=== PATIENT | female | born 1955 | race Caucasian/White ===

== ENCOUNTER 2020-04-27 23:03 | Inpatient (IN) | payer MEDICAID, MEDICARE, OTHER ==
[~2020-04-27] VITALS: Ht 162.6 cm; Wt 78.0 kg
[~2020-04-27 23:03] MED LIST: BENA5TAB5 PO; GLIP10TA11 PO; INSU100V7 SQ; METF-440 PO
--- NOTE | 2020-04-27 23:19 | NUR ---
Note michaelshun in EDM - 04/27/20 at 2321 by JARAD PT BIBPA FOR MEDICAL CLREANCE AND PSYCH EVAL . PT WAS AGITATED AND HAD BEEN REFUSIMG AT THE FACILITY PER REPORT. PT AAOX4, VSS, RESPIRATIONS EVEN AND UNLABORED ON RA W/ NAD NOTED. PT CONNECTED TO THE MONITOR AND POX
--- NOTE | 2020-04-27 23:21 | NUR ---
PT BIBPA FOR MEDICAL CLREANCE AND PSYCH EVAL . PT WAS AGITATED AND HAD BEEN REFUSING AT THE FACILITY PER REPORT. PT AAOX3, VSS, RESPIRATIONS EVEN AND UNLABORED ON RA W/ NAD NOTED. PT CONNECTED TO THE MONITOR AND POX
--- NOTE | 2020-04-27 23:27 | NUR ---
ECONOMIC HISTORY TEACHER AT BEDSIDE FOR BLOOD DRAW
[2020-04-27 23:41] LABS: BASOPHILS % (AUTO) 0.7 % (0.0-2.0); EOSINOPHILS % (AUTO) 2.8 % (0.0-6.0); HEMATOCRIT 38 % (33-45); HEMOGLOBIN 12.7 g/dL (11.5-14.8); LYMPHOCYTES # (AUTO) 2.7 /CMM (0.8-4.8); LYMPHOCYTES % (AUTO) 36.7 % (20.0-44.0); MEAN CORPUSCULAR HGB CONC 34 g/dl (31.0-36.0); MEAN CORPUSCULAR VOLUME 86 fL (82-100); MONOCYTES # (AUTO) 0.5 /CMM (0.1-1.30); MONOCYTES % (AUTO) 7.2 % (2.0-12.0); NEUTROPHILS # (AUTO) 3.8 /CMM (1.8-8.9); NEUTROPHILS % (AUTO) 52.6 % (43.0-81.0); PLATELET COUNT (AUTO) 325 /CMM (150-450); RED BLOOD CELL COUNT(AUTO) 4.38 MIL/uL (4.0-5.2); WHITE BLOOD COUNT (AUTO) 7.2 K/uL (4.3-11.0)
--- NOTE | 2020-04-28 00:10 | NUR ---
PT AGITATED AT BEDSIDE. REDIRECTED TO ROOM.
[2020-04-28] MEDS ORDERED: LORAZEPAM INJ 2 MG/ML VIAL ONE ×2 (00:14→01:52)
--- NOTE | 2020-04-28 00:17 | NUR ---
Hayley oconnell in [facility] - 04/28/20 at 0046 by JARAD MAHESHID SWAB SENT TO LAB
[2020-04-28] MEDS ORDERED: LORAZEPAM INJ 2 MG/ML VIAL IM ONE ×2 (00:30→02:00)
[2020-04-28 00:38] LABS: ACETAMINOPHEN 0 ug/ml (10-30); ALANINE AMINOTRANSFERASE 21 U/L (12-78); ALBUMIN 3.5 g/dL (3.4-5.0); ALCOHOL, BLOOD < 3 mg/dL (0-0); ALKALINE PHOSPHATASE 143 U/L (46-116); ASPARTATE AMINOTRANSFERASE 14 U/L (15-37); BILIRUBIN,DIRECT 0.1 mg/dL (0.0-0.2); BILIRUBIN,TOTAL 0.2 mg/dL (0.2-1.0); CALCIUM, SERUM 9.6 mg/dL (8.5-10.1); CARBON DIOXIDE 26 mmol/L (21-32); CHLORIDE 102 mmol/L (98-107); CREATININE 0.9 mg/dL (0.6-1.3); GLUCOSE 214 mg/dL (74-106); POTASSIUM 3.8 mmol/L (3.5-5.1); SALICYLATE 0.9 mg/dL (2.8-20.0); SODIUM SERUM 137 mmol/L (136-145); TOTAL PROTEIN, SERUM 7.2 g/dL (6.4-8.2); UREA NITROGEN, BLOOD 20 mg/dL (7-18)
--- NOTE | 2020-04-28 00:55 | NUR ---
CORONAVIRUS SWAB SAMPLE COLLECTED AND SENT WITH [facility].
[2020-04-28 01:03] LABS: BILIRUBIN,URINE Negative (NEGATIVE); BLOOD, URINE Negative Ery/uL (NEGATIVE); COLOR,URINE Yellow (YELLOW); KETONES,URINE Negative (NEGATIVE); LEUKOCYTE ESTERASE ,URINE Small (NEGATIVE); NITRITE, URINE Negative (NEGATIVE); PH,URINE 5.5 (5.0-8.0); PROTEIN,URINE Negative (NEGATIVE); UGLUCOSE Negative (NEGATIVE); UROBILINOGEN,URINE 0.2 EU/dL (0.2)
[2020-04-28 01:04] LABS: APPEARANCE,URINE HAZY (CLEAR)
--- NOTE | 2020-04-28 01:38 | NUR ---
ART, ROTARY DRILL OPERATOR EN ROUTE TO HOSPITAL FOR EVALUATION
[2020-04-28 01:54] LABS: RBC,URINE 0-2 /HPF (0-2)
[2020-04-28 01:55] LABS: BACTERIA,URINE Many /HPF (None Seen); SQUAMOUS EPITHELIAL CELL,UR Few /HPF (None Seen)
--- NOTE | 2020-04-28 01:58 | NUR ---
PT WANDERING. NEEDS TO BE CONSTANTLY REDIRECTED.
--- NOTE | 2020-04-28 02:20 | NUR ---
ART, PROVIDER RELATIONS REPRESENTATIVE AT BEDSIDE FOR EVALUATION
[2020-04-28] MEDS ORDERED: METF-442 PO (02:36)
[2020-04-28] MEDS ORDERED: RISP2TAB5 PO (02:36)
[2020-04-28] MEDS ORDERED: ASCO500W7 PO (02:36)
[2020-04-28] MEDS ORDERED: ZINC1CAP2 PO (02:36)
--- NOTE | 2020-04-28 03:26 | NUR ---
REPORT GIVEN TO LORAINE MCCRACKEN FOR AARON
--- NOTE | 2020-04-28 03:55 | NUR ---
PT TRANSFERRED TO ROOM IN STABLE CONDITION
[2020-04-28] MEDS ORDERED: BLOOD SUGAR DIAGNOSTIC 1 EACH STRIP IN ONE (04:00)
[2020-04-28] MEDS ORDERED: MAGNESIUM HYDROXIDE 30 ML UDC PO PRN (04:00)
--- NOTE | 2020-04-28 04:00 | NUR ---
GPS RN NOTES: ADMISSION ADMITTED 64 Y/O FEMALE. PT ADMITTED FROM [facility] ER TO [facility] GPS ON A 5150. PER HOLD, PT WAS BROUGHT IN FROM [facility] DUE TO AGGRESSIVE BEHAVIOR, SCREAMING, KICKING STAFF AND NON COMPLAINT WITH MEDICATIONS. PT TRIED TO ELOPE FROM ED TWO TIMES AND HAD TO BE GIVEN ATIVAN 2MG TWO TIMES. UPON FACE TO FACE ASSESSMENT, PT IS A/O X2, EASILY AGITATED, CONFUSED, DISORGANIZED, FORGETFUL, ANGRY, UNCOOPERATIVE, RESERVED, GUARDED, RESTLESS, AND FLAT AFFECT. PT MARCIAL SI AND HI AT THIS TIME. PER PT DOES NOT KNOW WHY SHE IS HERE. PT REFUSED TO SIGN CONSENT PAPERS DUE TO "NOT IN THE MOOD." PT REFUSED TO ANSWER QUESTIONS AND IS VAGUE WITH HER ANSWERS. ENVIRONMENTAL SAFETY CHECK DONE Q15MIN. ENCOURAGE PT TO VERBALIZE THOUGHTS AND FEELINGS TO STAFF. ORIENTED PT TO THE UNIT. BELONGING AND CONTRABAND CHECKED AND DONE. NURSING ASSESSMENT DONE. PT REFUSED SKIN ASSESSMENT AND PICTURES. EXPLAIN RISKS AND BENEFITS. PT STILL REFUSED X3. PT AGREED TO TAKE PICTURE OF HER FACE FOR IDENTIFICATION. PICTURE PUT IN CHART. INITIAL BLOOD SUGAR CHECK DONE. PTS RIGHTS DISCUSSED BY MARKETING ANALYTICS ANALYST,. PROVIDED THE PT W/ HANDBOOK AND MED GUIDE. VITALS TAKEN WNL. NO S/S OF RESP DISTRESS. BREATHING EVEN AND UNLABORED. CONTINUE TO MONITOR.
[2020-04-28 04:07] VITALS: BP 128/59
[2020-04-28] MEDS ORDERED: INSU100V3 IJ (04:23)
[2020-04-28] MEDS ORDERED: HUM100IN SQ (04:23)
[2020-04-28] MEDS ORDERED: BLOO-1672 MC (04:25)
[2020-04-28] MEDS ORDERED: INSULIN REGULAR, HUMAN 100 UNIT/ML 3 ML VIAL SQ PRN (06:30)
[2020-04-28] MEDS ORDERED: DEXTROSE 50%-WATER 50 ML DISP.SYRIN IV PRN (06:30)
[2020-04-28] MEDS: INSULIN LISPRO/ASPART 100 UNIT/ML CARTRIDGE SQ SCH ×3 (07:30→17:14)
[2020-04-28 08:00] VITALS: BP 106/63
[2020-04-28] MEDS: BLOOD SUGAR DIAGNOSTIC 1 EACH STRIP IN SCH ×4 (08:45→21:44)
[2020-04-28] MEDS: METFORMIN 500 MG TABLET PO SCH ×2 (08:48→16:29)
[2020-04-28] MEDS: NICOTINE PATCH (14MG) 14 MG PATCH.TD24 TD SCH (08:48)
--- NOTE | 2020-04-28 09:06 | NUR ---
PATIENT IS SLEEPING IN BED, WOKE UP AROUND 0830. BLOOD SUGAR THIS AM IS 193--INSULIN GIVEN PER PROTOCOL AND METFORMIN ORDERED. NEW ORDER FOR INSULIN LISPRO NOT FOUND IN CASSETTE, THEREFORE NON-ADMIN AT THIS TIME. WILL F/U WITH PHARMACY. PATIENT IS NOW SLEEPING IN BED, SAFETY PRECAUTIONS IN PLACE.
--- NOTE | 2020-04-28 14:23 | NUR ---
RN-CO: Notified Dr Silva to do his dictation/consultation within 24 hours.
--- NOTE | 2020-04-28 15:11 | NUR ---
RN-CO: Patient was seen by Dr Rodolfo Silva.
[2020-04-28] MEDS: risperiDONE 1 MG TABLET PO SCH ×2 (15:21→21:00)
--- NOTE | 2020-04-28 15:30 | NUR ---
SKIN ASSESSMENT DONE, SKIN REMAINS INTACT. OLD MOSQUITO BITES FOUND ON BLE AND OLD SURGICAL INCISION ON MEDIAL ABDOMEN.
[2020-04-28 16:00] VITALS: BP 145/80
[2020-04-28 17:39] LABS: CREATININE 0.8 mg/dL (0.6-1.3)
[2020-04-28] MEDS: BENZTROPINE MESYLATE (1 MG) 1 MG TABLET PO SCH (17:50)
[2020-04-28 19:59] VITALS: BP 114/57
[2020-04-28] MEDS: INSULIN REGULAR, HUMAN 100 UNIT/ML 3 ML VIAL SQ PRN (21:46)
--- NOTE | 2020-04-28 21:46 | NUR ---
GPS/BARREL TESTER AND DRAINER NOTES: PT. REFUSED HS RISPERIDONE 2MG PO ORDERED. OFFERED 3X. EXPLAINED RISK AND BENEFITS. PT. STILL REFUSED. WILL CONTINUE TO MONITOR.
[2020-04-28] MEDS: ACETAMINOPHEN 325 MG TABLET PO PRN (22:01)
--- NOTE | 2020-04-29 07:00 | NUR ---
GPS RN OPENING NOTES PT RESTING IN BED AT THIS TIME. NO S/S OF ANY ACUTE DISTRESS OR AGITATION NOTED. CALM AND COOPERATIVE. NO C/O PAIN OR DISCOMFORT. SAFETY PRECAUTIONS IN PLACE AND OBSERVED AT ALL TIMES. BED IN LOWEST LOCKED POSITION, SIDE RAILS UP,HOB ELEVATED TO SEMI FOWLERS POSITION, CALL LIGHT WITHIN REACH. PT IS CALM, DIRECTED BEHAVIOR APPROPRIATE DENIES SI HI AH VH. WILL CONTINUE TO MONITOR Q 15 MIN FOR SAFETY AND BEHAVIOR.
[2020-04-29 08:00] VITALS: BP 134/81
[2020-04-29] MEDS: BLOOD SUGAR DIAGNOSTIC 1 EACH STRIP IN SCH ×4 (08:42→21:03)
--- NOTE | 2020-04-29 08:50 | NUR ---
GPS RN NOTES PATIENT REFUSED NICODERM 14MG PATCH TP DAILY AT THIS TIME. WILL CONTINUE TO MONITOR
[2020-04-29] MEDS: INSULIN LISPRO/ASPART 100 UNIT/ML CARTRIDGE SQ SCH ×3 (08:52→17:05)
[2020-04-29] MEDS: INSULIN REGULAR, HUMAN 100 UNIT/ML 3 ML VIAL SQ PRN ×3 (08:53→21:07)
[2020-04-29] MEDS: NICOTINE PATCH (14MG) 14 MG PATCH.TD24 TD SCH (09:00)
[2020-04-29] MEDS: CEPHALEXIN MONOHYDRATE 500 MG CAPSULE PO SCH ×2 (09:22→21:02)
[2020-04-29] MEDS: METFORMIN 500 MG TABLET PO SCH ×2 (09:23→17:11)
[2020-04-29] MEDS: BENZTROPINE MESYLATE (1 MG) 1 MG TABLET PO SCH ×2 (09:23→17:11)
[2020-04-29] MEDS: risperiDONE 1 MG TABLET PO SCH ×2 (09:24→17:11)
[2020-04-29] MEDS: ACETAMINOPHEN 325 MG TABLET PO PRN ×2 (13:33→23:00)
--- NOTE | 2020-04-29 13:36 | NUR ---
PATIENT C/O OF BILATERAL LOWER LEG THROBBING PAIN OF 3/10. PATIENT REQUESTED FOR ACETAMINOPHEN. ACETAMINOPHEN 650MG PO Q6HRS PRN WAS ADMINISTERED AT THIS TIME. WILL CONTINUE TO MONITOR
[2020-04-29 16:00] VITALS: BP 114/70
--- NOTE | 2020-04-29 16:00 | NUR ---
DR PORTER HAD TELEMEDICINE/HEALTH ASSESSMENT AND CONSULT WITH PATIENT. NO NEW ORDERS. WILL CONTINUE TO MONITOR
--- NOTE | 2020-04-29 16:14 | NUR ---
INDIVIDUAL INTERVENTION: SW attempted to encourage pt to attend group therapy on this day, but pt refused. Pt was pacing the hallway and did not engage in conversation with SW and walked away.
--- NOTE | 2020-04-29 18:00 | NUR ---
PT REFUSED LAB DRAWN FOR LIPID PANEL. PT EDUCATED ON BENEFITS AND RISKS. PT VERBALIZED UNDERSTANDING. WILL CONTINUE TO MONITOR
--- NOTE | 2020-04-29 18:49 | NUR ---
GPS RN CLOSING NOTES PT SITTING IN HALLWAY AT THIS TIME. PT REMAINED STABLE THROUGHOUT SHIFT. ALL CARE, NEEDS, TREATMENT AND MEDICATIONS ADMINISTERED ANTICIPATED PER ORDER. FALL AND SAFETY PRECAUTIONS IN PLACE AND OBSERVED AT ALL TIMES. WILL ENDORSE TO ORACLE CONSULTANT NURSE FOR AARON. Addendum: 04/29/20 at 1859 by EDWIN PETERS RN GPS RN CLOSING NOTES PT RESTING IN BED AT THIS TIME. PT REMAINED STABLE THROUGHOUT SHIFT. ALL CARE, NEEDS, TREATMENT AND MEDICATIONS ADMINISTERED ANTICIPATED PER ORDER. FALL AND SAFETY PRECAUTIONS IN PLACE AND OBSERVED AT ALL TIMES. BED IN LOWEST LOCKED POSITION, SIDE RAILS UP,HOB ELEVATED TO SEMI FOWLERS POSITION, CALL LIGHT WITHIN REACH. WILL ENDORSE TO ORACLE CONSULTANT NURSE FOR AARON.
--- NOTE | 2020-04-29 18:58 | NUR ---
GPS RN CLOSING NOTES PT RESTING IN BED AT THIS TIME. PT REMAINED STABLE THROUGHOUT SHIFT. ALL CARE, NEEDS, TREATMENT AND MEDICATIONS ADMINISTERED ANTICIPATED PER ORDER. FALL AND SAFETY PRECAUTIONS IN PLACE AND OBSERVED AT ALL TIMES. BED IN LOWEST LOCKED POSITION, SIDE RAILS UP,HOB ELEVATED TO SEMI FOWLERS POSITION, CALL LIGHT WITHIN REACH. WILL ENDORSE TO STAVE LOG CUT OFF SAW OPERATOR NURSE FOR AARON.
[2020-04-29 20:04] VITALS: BP 99/55
[2020-04-29 20:14] VITALS: BP 99/55
[2020-04-29 20:50] VITALS: BP 105/61
--- NOTE | 2020-04-29 21:08 | NUR ---
GPS RN NOTE: Patient wanted to get all her medicines & insulin coverage at this time, so she can sleep well. patient had snack already & in stable condition.
--- NOTE | 2020-04-29 23:05 | NUR ---
PRN TYLENOL GIVEN PATIENT VERBALIZED LEFT KNEE & LEFT FOOT PAIN & ASKED TO GET PAIN MEDICINE, PRN TYLENOL 650 MG PO GIVEN. WILL CONTINUE TO MONITOR FOR ANY CHANGES.
--- NOTE | 2020-04-30 02:33 | NUR ---
GPS RN NOTE PATIENT IS SLEEPING INTERMITTENTLY, WHEN ASKED IF PATIENT NEEDS SLEEPING MEDICINE, PATIENT REFUSE & STATED," I SLEEP DURING DAY TIME & THAT'S MY ROUTINE." ENCOURAGED PATIENT TO SLEEP AT NIGHT & PARTICIPATE IN ACTIVITIES IN DAY TIME BUT PATIENT DID NOT AGREE TO THE PLAN & WANTED TO STICK TO HER ROUTINE. SNACK & FLUIDS OFFERED & TOLERATED WELL. WILL CONTINUE TO MONITOR FOR ANY CHANGES.
[2020-04-30] MEDS: BLOOD SUGAR DIAGNOSTIC 1 EACH STRIP IN SCH ×4 (07:56→21:51)
[2020-04-30] MEDS: INSULIN LISPRO/ASPART 100 UNIT/ML CARTRIDGE SQ SCH ×3 (07:59→18:16)
[2020-04-30 08:00] VITALS: BP 147/64
[2020-04-30] MEDS: INSULIN REGULAR, HUMAN 100 UNIT/ML 3 ML VIAL SQ PRN ×3 (08:01→18:17)
[2020-04-30] MEDS: NICOTINE PATCH (14MG) 14 MG PATCH.TD24 TD SCH (08:07)
[2020-04-30] MEDS: CEPHALEXIN MONOHYDRATE 500 MG CAPSULE PO SCH ×2 (08:07→21:23)
[2020-04-30] MEDS: BENZTROPINE MESYLATE (1 MG) 1 MG TABLET PO SCH ×2 (08:07→17:34)
[2020-04-30] MEDS: METFORMIN 500 MG TABLET PO SCH ×2 (08:07→17:34)
[2020-04-30] MEDS: risperiDONE 1 MG TABLET PO SCH ×2 (08:07→17:34)
--- NOTE | 2020-04-30 11:21 | NUR ---
Social Work Initial Discharge Plan: Patient currently resides at [address], [address] ([phone]). Per patient's daughter Maggie ([phone]) would want patient back upon discharge. This freelance writer spoke with admin Maggie ([phone]) who stated that patient is welcomed back upon discharge. community health worker will work with the pt and the MD regarding appropriate discharge planning. community health worker will form a safe and proper discharge.
--- NOTE | 2020-04-30 11:31 | NUR ---
Social Work Family Contact: insulation worker furnace installer spoke with patient's daughter Maggie ([phone]) who claims is the patient's conservator. Upon review of the conservatorship paperwork it was determined that conservatorship is not valid and daughter does not hold conservatorship for the patient. Per Maggie, she stated that she would want patient back to [facility] upon discharge. This caption writer gathered collateral from patient's daughter Maggie ([phone]).
[2020-04-30 16:00] VITALS: BP 114/62
[2020-04-30 20:03] VITALS: BP 144/73
[2020-04-30 20:10] VITALS: BP 144/73
--- NOTE | 2020-04-30 21:52 | NUR ---
GPS RN NOTE PATIENT'S BS IS 124 MG/DL, INSULIN COVERAGE NOT NEEDED AT THIS TIME. PATIENT HAD SNACK & TOLERATED WELL.
[2020-05-01 08:00] VITALS: BP 140/83
[2020-05-01] MEDS: BLOOD SUGAR DIAGNOSTIC 1 EACH STRIP IN SCH ×4 (08:13→21:41)
[2020-05-01] MEDS: INSULIN LISPRO/ASPART 100 UNIT/ML CARTRIDGE SQ SCH ×3 (08:14→17:49)
[2020-05-01] MEDS: INSULIN REGULAR, HUMAN 100 UNIT/ML 3 ML VIAL SQ PRN ×2 (08:17→17:51)
[2020-05-01] MEDS: METFORMIN 500 MG TABLET PO SCH ×2 (08:31→17:46)
[2020-05-01] MEDS: BENZTROPINE MESYLATE (1 MG) 1 MG TABLET PO SCH ×2 (08:31→17:46)
[2020-05-01] MEDS: CEPHALEXIN MONOHYDRATE 500 MG CAPSULE PO SCH ×2 (08:31→21:41)
[2020-05-01] MEDS: risperiDONE 1 MG TABLET PO SCH ×2 (08:31→17:46)
[2020-05-01] MEDS: NICOTINE PATCH (14MG) 14 MG PATCH.TD24 TD SCH (08:32)
[2020-05-01 16:00] VITALS: BP 108/72
[2020-05-02] MEDS: ACETAMINOPHEN 325 MG TABLET PO PRN (00:08)
--- NOTE | 2020-05-02 00:08 | NUR ---
GPS RN NOTE: PAIN PT. C/O OF 06/24 FOOT PAIN. ADMINISTERED TYLENOL 650 MG PO PRN ORDERED. WILL CONTINUE TO MONITOR FOR SAFETY AND BEHAVIOR
[2020-05-02 05:42] VITALS: BP 140/95
[2020-05-02] MEDS: BLOOD SUGAR DIAGNOSTIC 1 EACH STRIP IN SCH ×4 (07:29→21:22)
[2020-05-02] MEDS: INSULIN LISPRO/ASPART 100 UNIT/ML CARTRIDGE SQ SCH ×3 (07:30→17:30)
[2020-05-02 08:00] VITALS: BP 101/56
[2020-05-02] MEDS: CEPHALEXIN MONOHYDRATE 500 MG CAPSULE PO SCH ×2 (08:35→21:22)
[2020-05-02] MEDS: risperiDONE 1 MG TABLET PO SCH ×2 (08:35→17:19)
[2020-05-02] MEDS: NICOTINE PATCH (14MG) 14 MG PATCH.TD24 TD SCH (08:35)
[2020-05-02] MEDS: METFORMIN 500 MG TABLET PO SCH ×2 (08:35→17:19)
[2020-05-02] MEDS: BENZTROPINE MESYLATE (1 MG) 1 MG TABLET PO SCH ×2 (08:35→17:19)
--- NOTE | 2020-05-02 09:00 | NUR ---
RN NOTE- WITHDRAWN IN ROOM ISOLATIVE STATING THAT "I HAVE GANGREEN IN MY FOOT. I CAN FEEL IT. I NEED SOMETHING FOR MY GANGRENE' INSPECTION REVEALS NORMAL FOOT. NO EDAMA NO INFECTION NOTED. ALERT ORIENTED TO PERSON PLACE MED COMPLIANT PO INTAKE GOOD DENIES ALL
[2020-05-02 16:00] VITALS: BP 112/70
[2020-05-02] MEDS: INSULIN REGULAR, HUMAN 100 UNIT/ML 3 ML VIAL SQ PRN (17:22)
[2020-05-02 20:14] VITALS: BP 98/56
[2020-05-02 20:18] VITALS: BP 98/56
[2020-05-03] MEDS: BLOOD SUGAR DIAGNOSTIC 1 EACH STRIP IN SCH ×4 (07:21→20:54)
[2020-05-03] MEDS: INSULIN LISPRO/ASPART 100 UNIT/ML CARTRIDGE SQ SCH ×3 (07:31→17:07)
[2020-05-03] MEDS: INSULIN REGULAR, HUMAN 100 UNIT/ML 3 ML VIAL SQ PRN ×4 (07:33→21:26)
[2020-05-03 08:00] VITALS: BP 114/67
[2020-05-03] MEDS: risperiDONE 1 MG TABLET PO SCH ×2 (08:05→17:10)
[2020-05-03] MEDS: NICOTINE PATCH (14MG) 14 MG PATCH.TD24 TD SCH (08:06)
[2020-05-03] MEDS: BENZTROPINE MESYLATE (1 MG) 1 MG TABLET PO SCH ×2 (08:06→17:09)
[2020-05-03] MEDS: METFORMIN 500 MG TABLET PO SCH ×2 (08:06→17:09)
[2020-05-03] MEDS: CEPHALEXIN MONOHYDRATE 500 MG CAPSULE PO SCH ×2 (08:06→20:49)
--- NOTE | 2020-05-03 15:01 | NUR ---
INDIVIDUAL INTERVENTION: SW attempted to meet with pt to discuss his discharge plan. Pt was asleep and not easily aroused by verbal cues.
[2020-05-03 19:58] VITALS: BP 121/93
[2020-05-03 20:00] VITALS: BP 121/93
--- NOTE | 2020-05-03 20:55 | NUR ---
ACCU CHECK DONE EARLIER THAN SCHEDULED TIME: PATIENT REQUESTED HER BLOOD SUGAR TO BE CHECKED RIGHT NOW INSTEAD OF 2200. SHE WANTS TO HAVE SNACK & GO TO SLEEP & DOES NOT WANT TO BE BOTHERED ONCE ASLEEP.
--- NOTE | 2020-05-04 02:00 | NUR ---
REFUSED ATIVAN PATIENT NOTED TO BE PACING IN & OUT OF HER ROOM, RESTLESS, ATIVAN OFFERED X 3 BUT PATIENT KEEPS REFUSING & STATED," I AM OK, NOT ANXIOUS, IF I TAKE ATIVAN, I WILL BE KNOCKED OUT UNTIL 12 NOON, I WANT TO WALK TO EXERCISE FOR MY LEGS, I AM OK." PT. KEPT REFUSING ATIVAN SO FAR. WILL TRY AGAIN IF NEEDED.
--- NOTE | 2020-05-04 02:06 | NUR ---
GPS RN NOTE PATIENT REQUESTED TO GET MILK, INFORMED THE PATIENT THAT IT SHOWS ON HER RECORDS THAT SHE IS ALLERGIC TO MILK BUT PATIENT DENIED & STATED," I HAVE HAD MILK ALL MY LIFE, I AM NOT ALLERGIC TO MILK." ASKED THE PATIENT IF SHE EXPERIENCED ANY SIDE EFFECTS OR CHANGES AFTER DRINKING MILK IN THE PAST, PATIENT DENIED THAT WELL & INSISTED TO GET MILK, CHARGE NURSE MADE AWARE & MILK GIVEN TO THE PATIENT. WILL MONITOR CLOSELY & WILL UPDATE ALLERGIES IF PT. DOES NOT EXPERIENCE ANY SYMPTOMS.
--- NOTE | 2020-05-04 02:24 | NUR ---
GPS RN NOTE PATIENT IS LAYING IN BED AT THIS TIME, INTERMITTENTLY SLEEPING.
--- NOTE | 2020-05-04 04:30 | NUR ---
GPS RN NOTE PATIENT IS SLEEPING COMFORTABLY.
--- NOTE | 2020-05-04 04:49 | NUR ---
GPS RN NOTE PATIENT DID NOT SHOW ANY SYMPTOMS AFTER DRINKING MILK & SHE SAID SHE IS NOT ALLERGIC TO MILK AT ALL. ALLERGIES UPDATED TO NKA.
--- NOTE | 2020-05-04 06:39 | NUR ---
GPS RN NOTE PATIENT WANTS TO SEE THE BARIATRIC NURSE TODAY 05/04/20. ENTERED ON THE REPORT & WILL ENDORSE TO AM RN TO FOLLOW UP WITH THE BARIATRIC NURSE.
[2020-05-04] MEDS: BLOOD SUGAR DIAGNOSTIC 1 EACH STRIP IN SCH ×4 (07:27→21:11)
[2020-05-04] MEDS: INSULIN REGULAR, HUMAN 100 UNIT/ML 3 ML VIAL SQ PRN ×4 (07:37→21:11)
[2020-05-04] MEDS: INSULIN LISPRO/ASPART 100 UNIT/ML CARTRIDGE SQ SCH ×3 (07:40→16:52)
[2020-05-04 08:00] VITALS: BP 103/59
[2020-05-04] MEDS: METFORMIN 500 MG TABLET PO SCH ×2 (08:20→16:47)
[2020-05-04] MEDS: risperiDONE 1 MG TABLET PO SCH ×2 (08:20→16:47)
[2020-05-04] MEDS: BENZTROPINE MESYLATE (1 MG) 1 MG TABLET PO SCH ×2 (08:20→16:47)
[2020-05-04] MEDS: NICOTINE PATCH (14MG) 14 MG PATCH.TD24 TD SCH (08:21)
[2020-05-04] MEDS: CEPHALEXIN MONOHYDRATE 500 MG CAPSULE PO SCH ×2 (08:24→21:04)
--- NOTE | 2020-05-04 14:34 | NUR ---
Social Work Individual Therapy: drywall metal stud worker met with patient to provide brief counseling. Pt appeared to be tangential and hyperverbal. This handbook writer attempted to discuss patient's discharge plan. Patient appeared to be paranoid and delusion she stated that she has her own condo and that "people are going to pay for her and that the economy has been suffering". Pt stated that she has been eating "canned food and that she has been poisoned multiple times". This handbook writer actively listened to patient.
[2020-05-04 16:00] VITALS: BP 151/74
[2020-05-04 20:13] VITALS: BP 126/64
[2020-05-05] MEDS: ACETAMINOPHEN 325 MG TABLET PO PRN
[2020-05-05] MEDS: MAG HYDROX/AL HYDROX/SIMETH 30 ML UDC PO PRN ×2 (00:03→04:53)
--- NOTE | 2020-05-05 00:10 | NUR ---
GPS RN NOTE: PAIN & INDIGESTION PT WAS COMPLAINING OF SHOULDER PAIN AND INDIGESTION AND REQUESTED TYLENOL AND SOMETHING FOR INDIGESTION. ADMINISTERED TYLENOL 650MG PRN @0000 & MAALOX SUSP. UDC 30ML @0003. WILL CONTINUE TO MONITOR Q15 MIN FOR SAFETY AND BEHAVIOR.
[2020-05-05] MEDS: BLOOD SUGAR DIAGNOSTIC 1 EACH STRIP IN SCH ×4 (07:37→21:32)
[2020-05-05 08:00] VITALS: BP 112/68
[2020-05-05] MEDS: CEPHALEXIN MONOHYDRATE 500 MG CAPSULE PO SCH ×2 (08:17→21:31)
[2020-05-05] MEDS: BENZTROPINE MESYLATE (1 MG) 1 MG TABLET PO SCH ×2 (08:17→16:33)
[2020-05-05] MEDS: METFORMIN 500 MG TABLET PO SCH ×2 (08:17→16:33)
[2020-05-05] MEDS: INSULIN LISPRO/ASPART 100 UNIT/ML CARTRIDGE SQ SCH ×3 (08:20→17:29)
[2020-05-05] MEDS: INSULIN REGULAR, HUMAN 100 UNIT/ML 3 ML VIAL SQ PRN ×3 (08:21→21:42)
[2020-05-05] MEDS: risperiDONE 1 MG TABLET PO SCH (08:27)
[2020-05-05] MEDS: NICOTINE PATCH (14MG) 14 MG PATCH.TD24 TD SCH (08:27)
--- NOTE | 2020-05-05 11:08 | NUR ---
Social Work Family Contact: feeder worker power unit operator spoke with patient's daughter Maggie ([phone]) and discussed patient's status. Per daughter Maggie, she is agreeable with pt being discharged to [facility] upon discharge.
[2020-05-05] MEDS: OLANZAPINE 5 MG TABLET PO SCH ×2 (12:30→17:00)
--- NOTE | 2020-05-05 14:13 | NUR ---
GROUP NOTE: Pt was asleep and not easily aroused by verbal cues.
[2020-05-05 16:00] VITALS: BP 143/88
[2020-05-05 20:09] VITALS: BP 117/59
[2020-05-06] MEDS: BLOOD SUGAR DIAGNOSTIC 1 EACH STRIP IN SCH ×4 (07:45→21:21)
[2020-05-06] MEDS: INSULIN LISPRO/ASPART 100 UNIT/ML CARTRIDGE SQ SCH ×3 (07:47→16:55)
[2020-05-06 08:00] VITALS: BP 149/79
[2020-05-06] MEDS: NICOTINE PATCH (14MG) 14 MG PATCH.TD24 TD SCH ×2 (08:30→08:40)
[2020-05-06] MEDS: OLANZAPINE 5 MG TABLET PO SCH ×2 (08:31→08:40)
[2020-05-06] MEDS: BENZTROPINE MESYLATE (1 MG) 1 MG TABLET PO SCH ×2 (08:31→16:38)
[2020-05-06] MEDS: METFORMIN 500 MG TABLET PO SCH ×2 (08:31→16:38)
--- NOTE | 2020-05-06 08:41 | NUR ---
RN NOTES PATIENT CHANGES HER MIND AND REFUSED OLANZAPINE AND NICOTINE PATCH, PER PATIENT "I DON'T NEED IT".WASTED OLANZAPINE PER PROTOCOL. WILL CONTINUE TO MONITOR.
--- NOTE | 2020-05-06 14:16 | NUR ---
GROUP NOTE: Group Topic was on how to manage stress. Patient was able to engage in group. However, patient was off topic and was delusional. She continuously stated that she wrote the "laws" and that it is on the website of "[employer]". Patient was re-directed to the topic and she was able to state that when she is stressed she "prays". Patient was able to engage with peers.
[2020-05-06 16:00] VITALS: BP 145/68
[2020-05-06] MEDS: risperiDONE 1 MG TABLET PO SCH ×2 (16:39→16:43)
--- NOTE | 2020-05-06 16:43 | NUR ---
RN NOTES PATIENT REFUSED RISPERDAL, EXPLAINED THE RISKS AND BENEFITS FOR 3X BUT STILL REFUSED. WILL CONTINUE TO MONITOR.
[2020-05-06 20:52] VITALS: BP 138/77
[2020-05-06] MEDS: INSULIN REGULAR, HUMAN 100 UNIT/ML 3 ML VIAL SQ PRN (21:50)
[2020-05-06] MEDS: ACETAMINOPHEN 325 MG TABLET PO PRN (21:51)
--- NOTE | 2020-05-06 21:51 | NUR ---
GPS-RN NOTE: UPPER BACK PAIN PATIENT C/O UPPER BACK PAIN AND REQUESTING FOR TYLENOL. ADMINISTERED ACETAMINOPHEN 650MG PO ORDERED. WILL CONTINUE TO MONITOR.
[2020-05-06] MEDS: LORAZEPAM 0.5 MG TABLET PO PRN (22:19)
--- NOTE | 2020-05-06 22:19 | NUR ---
GPS-RN NOTE: ANXIETY PATIENT C/O FEELING ANXIOUS. ADMINISTERED ATIVAN 0.5MG PO ORDERED. WILL CONTINUE TO MONITOR FOR SAFETY AND BEHAVIOR.
[2020-05-07] MEDS: BLOOD SUGAR DIAGNOSTIC 1 EACH STRIP IN SCH ×4 (07:21→21:06)
[2020-05-07] MEDS: INSULIN LISPRO/ASPART 100 UNIT/ML CARTRIDGE SQ SCH ×3 (07:26→16:55)
[2020-05-07] MEDS: INSULIN REGULAR, HUMAN 100 UNIT/ML 3 ML VIAL SQ PRN ×3 (07:26→21:07)
[2020-05-07 08:00] VITALS: BP 152/73
[2020-05-07] MEDS: BENZTROPINE MESYLATE (1 MG) 1 MG TABLET PO SCH ×2 (08:24→17:00)
[2020-05-07] MEDS: METFORMIN 500 MG TABLET PO SCH ×2 (08:24→17:00)
[2020-05-07] MEDS: NICOTINE PATCH (14MG) 14 MG PATCH.TD24 TD SCH (08:24)
[2020-05-07] MEDS: risperiDONE 1 MG TABLET PO SCH ×2 (08:24→17:00)
[2020-05-07] MEDS: HALOPERIDOL 5 MG TABLET PO SCH ×2 (10:00→17:00)
--- NOTE | 2020-05-07 10:37 | NUR ---
GPS RN NOTE: PATIENT IN BED, AWAKE, NO COMPLAINS OF PAIN OR DISCOMFORT TIME PATIENT APPEARS UNKEMPT, REFUSED TO SHOWER DISORGANIZED,DENIES AUDITORY OR VISUAL HALLUCINATIONS.PT REFUSED ALL AM MEDICATIONS SITTING " IM NOT GOING TO TAKE MEDICATIONS MY BODY HAVE TOO MUCH MEDICATIONS"DR PORTER AWARE.SAFETY AND FALL PRECAUTIONS OBSERVED. BED ALARM ON. Q15 MIN CHECKS CONTINUED. WILL CONTINUE TO MONITOR PATIENT FOR MOOD SAFETY AND BEHAVIOR.
--- NOTE | 2020-05-07 15:25 | NUR ---
GROUP NOTE: sort line worker invited pt to participate in group. Pt refused to join and stated that she is not feeling good and wants to sleep.
[2020-05-07 16:00] VITALS: BP 118/67
[2020-05-07 19:55] VITALS: BP 107/73
[2020-05-07 20:00] VITALS: BP 107/73
[2020-05-08] MEDS: ACETAMINOPHEN 325 MG TABLET PO PRN (00:10)
[2020-05-08] MEDS: INSULIN REGULAR, HUMAN 100 UNIT/ML 3 ML VIAL SQ PRN ×3 (07:57→17:00)
[2020-05-08 08:00] VITALS: BP 163/84
[2020-05-08] MEDS: BLOOD SUGAR DIAGNOSTIC 1 EACH STRIP IN SCH ×4 (08:00→21:29)
[2020-05-08] MEDS: INSULIN LISPRO/ASPART 100 UNIT/ML CARTRIDGE SQ SCH ×3 (08:03→16:59)
[2020-05-08] MEDS: METFORMIN 500 MG TABLET PO SCH ×2 (08:35→16:04)
[2020-05-08] MEDS: NICOTINE PATCH (14MG) 14 MG PATCH.TD24 TD SCH (08:37)
[2020-05-08] MEDS: risperiDONE 1 MG TABLET PO SCH ×2 (08:37→16:06)
[2020-05-08] MEDS: HALOPERIDOL 5 MG TABLET PO SCH ×2 (08:37→16:06)
[2020-05-08] MEDS: BENZTROPINE MESYLATE (1 MG) 1 MG TABLET PO SCH ×2 (09:00→16:06)
[2020-05-08 10:11] VITALS: BP 133/81
[2020-05-08 16:00] VITALS: BP 137/75
[2020-05-08 20:00] VITALS: BP 127/73
[2020-05-08 20:27] VITALS: BP 127/73
--- NOTE | 2020-05-09 05:24 | NUR ---
GPS RN NOTE PATIENT REFUSED AM LABS DESPITE OF EXPLANATIONS.
[2020-05-09] MEDS: BLOOD SUGAR DIAGNOSTIC 1 EACH STRIP IN SCH ×4 (07:44→22:01)
[2020-05-09] MEDS: INSULIN LISPRO/ASPART 100 UNIT/ML CARTRIDGE SQ SCH ×3 (07:49→17:30)
[2020-05-09 08:00] VITALS: BP 132/66
[2020-05-09] MEDS: BENZTROPINE MESYLATE (1 MG) 1 MG TABLET PO SCH ×2 (08:50→17:00)
[2020-05-09] MEDS: METFORMIN 500 MG TABLET PO SCH ×2 (08:50→17:00)
[2020-05-09] MEDS: NICOTINE PATCH (14MG) 14 MG PATCH.TD24 TD SCH (08:51)
[2020-05-09] MEDS: HALOPERIDOL 5 MG TABLET PO SCH ×2 (08:51→17:00)
[2020-05-09] MEDS: risperiDONE 1 MG TABLET PO SCH ×2 (08:51→17:00)
--- NOTE | 2020-05-09 08:51 | NUR ---
RN NOTES PATIENT IN THE BED A/O X3, WITH DISORGANIZED THOUGHTS, REFUSED SCHEDULED MEDICATION, V/S TAKEN WNL. PATIENT CALM, REFUSED LABS, BS-167 MG/DL COVERAGE GIVEN.
[2020-05-09 16:00] VITALS: BP 124/73
[2020-05-09] MEDS: INSULIN REGULAR, HUMAN 100 UNIT/ML 3 ML VIAL SQ PRN ×2 (17:35→21:41)
[2020-05-09 20:00] VITALS: BP 111/64
[2020-05-09 20:10] VITALS: BP 99/56
[2020-05-10] MEDS: INSULIN LISPRO/ASPART 100 UNIT/ML CARTRIDGE SQ SCH ×4 (07:30→16:52)
[2020-05-10] MEDS: BLOOD SUGAR DIAGNOSTIC 1 EACH STRIP IN SCH ×4 (07:45→21:28)
[2020-05-10] MEDS: INSULIN REGULAR, HUMAN 100 UNIT/ML 3 ML VIAL SQ PRN ×4 (07:48→21:29)
[2020-05-10 08:00] VITALS: BP 158/78
[2020-05-10] MEDS: BENZTROPINE MESYLATE (1 MG) 1 MG TABLET PO SCH ×2 (08:44→17:00)
[2020-05-10] MEDS: risperiDONE 1 MG TABLET PO SCH ×2 (08:44→17:00)
[2020-05-10] MEDS: HALOPERIDOL 5 MG TABLET PO SCH ×2 (08:44→17:00)
[2020-05-10] MEDS: METFORMIN 500 MG TABLET PO SCH ×2 (08:44→17:09)
[2020-05-10] MEDS: NICOTINE PATCH (14MG) 14 MG PATCH.TD24 TD SCH (08:45)
--- NOTE | 2020-05-10 08:45 | NUR ---
RN NOTE: MEDICATION REFUSAL PT REFUSED ALL AM MEDICATIONS. EDUCATED PT RE IMPORTANCE OF MEDICATION COMPLIANCE. PT CONT TO REFUSE X 3. REISE HEARING IS SCHEDULED
[2020-05-10 16:00] VITALS: BP 149/78
--- NOTE | 2020-05-10 17:11 | NUR ---
RN NOTE: MEDICATION REFUSAL PT REFUSED ALL 1700 MEDICATIONS EXCEPT METFORMIN. EDU PT ON IMPORTANCE OF MEDICATION COMPLIANCE. PT CONT TO REFUSE X3/
[2020-05-10 20:15] VITALS: BP 114/50
[2020-05-11] MEDS: BLOOD SUGAR DIAGNOSTIC 1 EACH STRIP IN SCH ×4 (07:33→21:17)
[2020-05-11] MEDS: INSULIN REGULAR, HUMAN 100 UNIT/ML 3 ML VIAL SQ PRN ×4 (07:38→21:18)
[2020-05-11] MEDS: INSULIN LISPRO/ASPART 100 UNIT/ML CARTRIDGE SQ SCH ×3 (07:39→16:48)
[2020-05-11 08:00] VITALS: BP 151/86
[2020-05-11] MEDS: risperiDONE 1 MG TABLET PO SCH (09:00)
[2020-05-11] MEDS: BENZTROPINE MESYLATE (1 MG) 1 MG TABLET PO SCH ×2 (09:00→17:00)
[2020-05-11] MEDS: HALOPERIDOL 5 MG TABLET PO SCH ×2 (09:00→17:11)
[2020-05-11] MEDS: NICOTINE PATCH (14MG) 14 MG PATCH.TD24 TD SCH (09:00)
[2020-05-11] MEDS: METFORMIN 500 MG TABLET PO SCH ×2 (09:09→17:12)
--- NOTE | 2020-05-11 09:12 | NUR ---
RN NOTE: MEDICATION REFUSAL PT REFUSED ALL AM PO MEDICATIONS EXCEPT METFORMIN. EDUCATED PT ON IMPORTANCE OF MEDICATION COMPLIANCE. PT CONT TO REFUSE X 3. RIESE HEARING FILED
[2020-05-11] MEDS ORDERED: HALOPERIDOL LACTATE INJ 5 MG/ML VIAL IM PRN (11:30)
--- NOTE | 2020-05-11 15:18 | NUR ---
GROUP NOTE: Group Topic: Depression SW provided active listening, supportive counseling, and explored alternate coping skills. Patient shared about not experiencing depression because she grew up in a big family and felt secure and stable. Patient shared about moments of feeling stress and sadness over losing people she loves.
[2020-05-11 16:00] VITALS: BP 122/62
--- NOTE | 2020-05-11 17:12 | NUR ---
RN NOTE: PT C/O PHUONG. TOOK HALDOL AND GLUCOPHAGE PO
[2020-05-11 19:57] VITALS: BP 104/58
[2020-05-11 20:24] VITALS: BP 135/81
[2020-05-12] MEDS: BLOOD SUGAR DIAGNOSTIC 1 EACH STRIP IN SCH ×4 (07:54→21:07)
[2020-05-12] MEDS: INSULIN LISPRO/ASPART 100 UNIT/ML CARTRIDGE SQ SCH ×3 (07:54→16:40)
[2020-05-12] MEDS: INSULIN REGULAR, HUMAN 100 UNIT/ML 3 ML VIAL SQ PRN ×4 (07:56→21:07)
[2020-05-12 08:00] VITALS: BP 152/82
[2020-05-12] MEDS: HALOPERIDOL 5 MG TABLET PO SCH ×3 (08:32→16:55)
[2020-05-12] MEDS: BENZTROPINE MESYLATE (1 MG) 1 MG TABLET PO SCH ×2 (08:32→16:38)
[2020-05-12] MEDS: METFORMIN 500 MG TABLET PO SCH ×2 (08:32→16:37)
[2020-05-12] MEDS: NICOTINE PATCH (14MG) 14 MG PATCH.TD24 TD SCH (08:34)
--- NOTE | 2020-05-12 11:24 | NUR ---
ELIZABETH Coordination of Care: Spoke with patient's daughter, Maggie Barragan ([phone]) regarding patient's discharge planning. Maggie wnatded this manual writer to look into alternate placement for the patient at [address] [address] ([phone]). ELIZABETH spoke with Adriel crystal machining coordinator at the facility and faxed him the patient's referral packet for review fax# ([phone]).
--- NOTE | 2020-05-12 15:00 | NUR ---
ELIZABETH Family Contact: ELIZABETH spoke with Maggie Barragan ([phone]) patient's daughter who stated that she is the patient's LPS conservator however Maggie had not provided any documents regarding this. This play writer requested the conservatorship documentation, Maggie stated that she is unable to get them due to her produce shipper's office being closed and she is trying to renew the conservatorship. Maggie stated that her conservatorship one year ago, and she filed for a renewal which has been delayed due to COVID-19 Pandemic and the courts being closed. Maggie provided the hospital with a copy of a document stating that her conservatorship, although already, has been extended until May 24, 2020 and she provided this document upon patients admissions to in [facility] Department on 04/27/20. This play writer discussed with Maggie that the patient had a Riese Hearing and 14 Day Hold Hearing yesterday as the patient had been refusing all her medications. Maggie understood this process.
--- NOTE | 2020-05-12 15:15 | NUR ---
LPS Conservatorship Note Prior to and upon admission, Maggie, patient's mother ) produced LPS conservatorship with no signature from her on conservatorship. It appears she later faxed a minute order in which it is noted that conservatorship over person only was extended until May 24, 2020. This was not received on GPS unit. Conservatorship anderson have not yet been produced by patient's mother so our hospital cannot honor this conservatorship until there is documented evidence of her anderson over this patient. Rachelle, mónica conventions reservationist agreed to request anderson from patient's mother. Upon review of and receipt of these anderson, this situation will once again be reviewed.
--- NOTE | 2020-05-12 15:45 | NUR ---
Group Note: SW encouraged the pt to attend group therapy on 05/12/20 on the topic of discharge planning. Pt refused and stated that she wanted to remain in her room because she wanted to be asleep due to her foot pain. Pt stated that she wants to go to her home and that she has a sick son at home. Pt stated that she wanted the SW to work on her discharge as soon as possible.
[2020-05-12 16:00] VITALS: BP 151/74
--- NOTE | 2020-05-12 16:22 | NUR ---
LPS Conservatorship Note Correction Patient's conservator is her daughter, Maggie ([phone]) and not her mother as previously stated by this fiction and nonfiction prose writer in earlier note today. Still awaiting documentation outlining anderson in order to honor conservatorship.
--- NOTE | 2020-05-12 17:04 | NUR ---
GPS RN NOTE: PATIENT REFUSED 1700 HALDOL 5 MG BID PO,PT RIESED. PER MD EVERY REFUSAL OF HALDOL PO GIVE HALDOL 5 MG IM. EXPLAIN RISK AND BENEFITS X3 PT CONTINUE REFUSING. MEDICATION EXPLAIN GIVEN PER ORDER, WILL CONTINUE MONITORING FOR SAFETY AND BEHAVIOR Q 15 MIN.
[2020-05-12 19:38] VITALS: BP 127/70
[2020-05-12] MEDS ORDERED: HALOPERIDOL DECANOATE IM 100 MG/ML AMPUL IM ONE (21:00)
[2020-05-13] MEDS: BLOOD SUGAR DIAGNOSTIC 1 EACH STRIP IN SCH ×4 (07:30→21:15)
[2020-05-13 08:24] VITALS: BP 148/71
[2020-05-13] MEDS: BENZTROPINE MESYLATE (1 MG) 1 MG TABLET PO SCH ×2 (08:40→17:18)
[2020-05-13] MEDS: HALOPERIDOL 5 MG TABLET PO SCH ×2 (08:40→17:18)
[2020-05-13] MEDS: METFORMIN 500 MG TABLET PO SCH ×2 (08:40→17:18)
[2020-05-13] MEDS: INSULIN LISPRO/ASPART 100 UNIT/ML CARTRIDGE SQ SCH ×3 (08:41→18:14)
[2020-05-13] MEDS: NICOTINE PATCH (14MG) 14 MG PATCH.TD24 TD SCH (08:45)
[2020-05-13] MEDS: INSULIN REGULAR, HUMAN 100 UNIT/ML 3 ML VIAL SQ PRN ×3 (08:47→18:14)
--- NOTE | 2020-05-13 14:19 | NUR ---
GROUP NOTE: Topic: Adapting to our environment. turn down worker encouraged patient to participate in group therapy. Patient was resting at this time and did not want to be present.
[2020-05-13 16:00] VITALS: BP 126/80
[2020-05-13 20:16] VITALS: BP 96/54
[2020-05-14] MEDS: LORAZEPAM 0.5 MG TABLET PO PRN (00:41)
--- NOTE | 2020-05-14 00:43 | NUR ---
RN NOTES : ANXIETY PT. C/O FEELING ANXIOUS , RESTLESS, ATIVAN 0.5 MG PO PRN GIVEN PER PT. REQUEST , WILL CONTINUE TO MONITOR.
--- NOTE | 2020-05-14 07:03 | NUR ---
GPS RN OPENING NOTES RECEIVED PATIENT RESTING IN BED AT THIS TIME, AOX4, MALDIVIAN SPEAKING, NO SOB NOTED, NO S/S OF ANY ACUTE DISTRESS NOTED, NO C/O PAIN AT THIS TIME. PT IS COOPERATIVE AND CALM WITH CARE AND EASILY REDIRECTED. PT APPEARS WITHDRAWN SOMETIMES WITH LIMITED CONVERSATION. PATIENT GETS ANXIOUS AT TIMES. PT DENIES SI/HI/AVH AT THIS TIME. ENVIRONMENTAL SAFETY CHECKS . SAFETY PRECAUTIONS IN PLACE AND MAINTAINED AT ALL TIMES, BED IN LOWEST LOCKED POSITION, SIDE RAILS UP, CALL LIGHT WITHIN REACH. WILL CONTINUE TO MONITOR Q 15 MIN, FOR SAFETY, MOOD,BEHAVIOR AND CONTINUE WITH PLAN OF CARE
[2020-05-14] MEDS: BLOOD SUGAR DIAGNOSTIC 1 EACH STRIP IN SCH ×4 (07:49→22:05)
[2020-05-14 08:00] VITALS: BP 128/73
[2020-05-14] MEDS: INSULIN LISPRO/ASPART 100 UNIT/ML CARTRIDGE SQ SCH ×3 (08:09→17:12)
[2020-05-14] MEDS: NICOTINE PATCH (14MG) 14 MG PATCH.TD24 TD SCH (09:00)
[2020-05-14] MEDS: BENZTROPINE MESYLATE (1 MG) 1 MG TABLET PO SCH ×2 (09:34→17:00)
[2020-05-14] MEDS: METFORMIN 500 MG TABLET PO SCH ×2 (09:34→16:59)
[2020-05-14] MEDS: HALOPERIDOL 5 MG TABLET PO SCH ×2 (09:34→16:59)
--- NOTE | 2020-05-14 09:44 | NUR ---
PATIENT REFUSED NICODERM 14MG PATCH TD DAILY AT THIS TIME. EDUCATION ON BENEFITS AND RISKS PROVIDED. WILL CONTINUE TO MONITOR
[2020-05-14] MEDS: INSULIN REGULAR, HUMAN 100 UNIT/ML 3 ML VIAL SQ PRN ×2 (11:57→17:11)
--- NOTE | 2020-05-14 15:07 | NUR ---
GROUP NOTE: Topic: Learning coping skills. dope worker attempted to invite patient to participate in group. Patient was asleep at this time and unable to attend.
[2020-05-14 16:00] VITALS: BP 127/71
--- NOTE | 2020-05-14 18:50 | NUR ---
GPS RN CLOSING NOTES PATIENT AWAKE IN BED AT THIS TIME. PT REMAINED STABLE THROUGHOUT SHIFT. PT KEPT CLEAN AND DRY. ALL CARE, NEEDS, MEDICATIONS AND TREATMENT ADMINISTERED ANTICIPATED PER ORDER. SAFETY PRECAUTIONS IN PLACE AND MAINTAINED AT ALL TIMES, BED IN LOWEST LOCKED POSITION, SIDE RAILS UP, CALL LIGHT WITHIN REACH. WILL ENDORSE TO DROP MACHINE OPERATOR NURSE FOR AARON
[2020-05-14] MEDS: ACETAMINOPHEN 325 MG TABLET PO PRN (19:42)
--- NOTE | 2020-05-14 19:42 | NUR ---
GPS RN NOTE: PAIN PT. C/O OF FOOT PAIN. ADMINISTERED TYLENOL 650 MG PO PRN ORDERED. WILL CONTINUE TO MONITOR FOR SAFETY AND BEHAVIOR.
[2020-05-14 21:11] VITALS: BP 114/52
--- NOTE | 2020-05-15 01:57 | NUR ---
GPS RN NOTE: PT. C/O OF UPSET STOMACH. ADMINISTERED MILK OF MAGNESIA 30 ML PRN PO. WILL CONTINUE TO MONITOR FOR SAFETY AND BEHAVIOR
[2020-05-15] MEDS: BLOOD SUGAR DIAGNOSTIC 1 EACH STRIP IN SCH ×4 (07:57→21:37)
[2020-05-15 08:00] VITALS: BP 136/80
[2020-05-15] MEDS: INSULIN LISPRO/ASPART 100 UNIT/ML CARTRIDGE SQ SCH ×3 (08:24→17:15)
[2020-05-15] MEDS: INSULIN REGULAR, HUMAN 100 UNIT/ML 3 ML VIAL SQ PRN ×4 (08:25→21:42)
[2020-05-15] MEDS: NICOTINE PATCH (14MG) 14 MG PATCH.TD24 TD SCH (09:00)
[2020-05-15] MEDS: HALOPERIDOL 5 MG TABLET PO SCH ×2 (09:26→17:22)
[2020-05-15] MEDS: METFORMIN 500 MG TABLET PO SCH ×2 (09:26→17:22)
[2020-05-15] MEDS: BENZTROPINE MESYLATE (1 MG) 1 MG TABLET PO SCH ×2 (09:26→17:22)
[2020-05-15 16:00] VITALS: BP 151/75
[2020-05-15] MEDS: ACETAMINOPHEN 325 MG TABLET PO PRN (20:30)
[2020-05-15 20:58] VITALS: BP 122/74
[2020-05-16] MEDS: BLOOD SUGAR DIAGNOSTIC 1 EACH STRIP IN SCH ×4 (07:26→21:29)
[2020-05-16] MEDS: INSULIN LISPRO/ASPART 100 UNIT/ML CARTRIDGE SQ SCH ×3 (07:41→17:06)
[2020-05-16] MEDS: INSULIN REGULAR, HUMAN 100 UNIT/ML 3 ML VIAL SQ PRN ×4 (07:42→21:30)
[2020-05-16 08:00] VITALS: BP 127/59
[2020-05-16] MEDS: HALOPERIDOL 5 MG TABLET PO SCH ×2 (08:57→17:04)
[2020-05-16] MEDS: METFORMIN 500 MG TABLET PO SCH ×2 (08:57→17:04)
[2020-05-16] MEDS: NICOTINE PATCH (14MG) 14 MG PATCH.TD24 TD SCH ×2 (08:59→09:00)
[2020-05-16] MEDS: BENZTROPINE MESYLATE (1 MG) 1 MG TABLET PO SCH ×2 (09:00→17:04)
--- NOTE | 2020-05-16 09:00 | NUR ---
RN OPENING NOTE RECEIVED PATIENT AT THE BED, NAPPING, QUIET AND COOPERATIVE AT THIS TIME. SUSPICIOUS, SAYING HER FEET HURTS, BECAUSE OF GANGRENE ; ASKING FOR PENICILLIN. CHECKED BOTH FEETS, SKIN IS INTACT; ISOLATIVE, DISORGANIZED, GUARDED, FLAT AFFECT, PARANOID AT TIMES. RESERVED, DENIES SI/HI/AVH AT THIS TIME. LIKES TO DO LIMITED CONVERSATIONS. NO C/O PAIN OR DISCOMFORT. ENVIRONMENTAL SAFETY CHECKS DONE. WILL CONTINUE TO MONITOR Q 15 MIN FOR SAFETY, MOOD AND BEHAVIOR.
--- NOTE | 2020-05-16 11:45 | NUR ---
DR PORTER SPOKE WITH PATIENT VIA ZOOM
[2020-05-16 15:52] VITALS: BP 135/74
[2020-05-16 19:58] VITALS: BP 143/79
--- NOTE | 2020-05-16 21:50 | NUR ---
GPS RN NOTES: REFUSED WEEKLY PICTURE SKIN ASSESSMENT PY REFUSED WEEKLY PICTURE AND SKIN ASSESSMENT. EXPLAIN RISKS AND BENEFITS. PT STILL REFUSED. CONTINUE TO MONITOR
[2020-05-17] MEDS: BLOOD SUGAR DIAGNOSTIC 1 EACH STRIP IN SCH ×4 (07:45→21:06)
[2020-05-17] MEDS: INSULIN REGULAR, HUMAN 100 UNIT/ML 3 ML VIAL SQ PRN ×2 (07:48→17:01)
[2020-05-17] MEDS: INSULIN LISPRO/ASPART 100 UNIT/ML CARTRIDGE SQ SCH ×3 (07:49→17:02)
[2020-05-17 08:00] VITALS: BP 150/93
[2020-05-17] MEDS: HALOPERIDOL 5 MG TABLET PO SCH ×2 (08:33→17:05)
[2020-05-17] MEDS: METFORMIN 500 MG TABLET PO SCH ×2 (08:33→17:06)
[2020-05-17] MEDS: BENZTROPINE MESYLATE (1 MG) 1 MG TABLET PO SCH ×2 (08:34→17:06)
--- NOTE | 2020-05-17 10:31 | NUR ---
ELIZABETH Coordination of Care: ELIZABETH followed up with Adriel client service coordinator at [facility] [place] [address], [place] [address] ([phone]) regarding patient's referral. Adriel stated that they would be able to accept the patient, however, they are on lockdown at the moment and are not allowed to accept new patient's due having a COVID positive patient.
--- NOTE | 2020-05-17 11:49 | NUR ---
ELIZABETH Family Contact: ELIZABETH spoke with patient's daughter Maggie Barragan ([phone]) regarding patient's discharge plan for tomorrow back to [facility]. Maggie is agreeable with this plan. This telegraphic typewriter installer also informed Maggie of patient's acceptance at [facility] however that they cannot accept at the moment due to being on lockdown as a result of COVID. This telegraphic typewriter installer provided Maggie of the admissions name and number at [facility] should she like to contact them.
--- NOTE | 2020-05-17 11:51 | NUR ---
ELIZABETH Discharge Planning: ELIZABETH spoke with Maggie staff development coordinator rn at [facility] ([phone]) and informed of the patient's discharge plan for tomorrow back to their facility. ELIZABETH faxed Maggie the patient's progress notes, medications list, and negative COVID test results.
--- NOTE | 2020-05-17 15:23 | NUR ---
Group Note: SW invited patient to participate in group therapy to discuss the topic of Problem Solving. Patient did not want to participate in group at this time without reason. SW encouraged patient to join group activities at least twice daily.
[2020-05-17 16:00] VITALS: BP 146/72
[2020-05-17 19:58] VITALS: BP 158/91
[2020-05-17 20:00] VITALS: BP 158/91
--- NOTE | 2020-05-17 21:07 | NUR ---
GPS RN NOTE PATIENT'S BLOOD SUGAR IS 113 MG/DL AT THIS TIME. NO SLIDING SCALE INSULIN COVERAGE NEEDED.
[2020-05-17 21:10] VITALS: BP 147/74
--- NOTE | 2020-05-18 06:46 | NUR ---
GPS RN CLOSING NOTE PATIENT SLEPT INTERMITTENTLY AT NIGHT. NO CHANGE OF CONDITION NOTED. WILL ENDORSE TO AM RN FOR CONTINUITY OF CARE.
[2020-05-18] MEDS: BLOOD SUGAR DIAGNOSTIC 1 EACH STRIP IN SCH ×2 (07:29→11:43)
[2020-05-18] MEDS: INSULIN REGULAR, HUMAN 100 UNIT/ML 3 ML VIAL SQ PRN (07:32)
[2020-05-18] MEDS: INSULIN LISPRO/ASPART 100 UNIT/ML CARTRIDGE SQ SCH ×2 (07:33→11:47)
[2020-05-18 08:00] VITALS: BP 137/78
[2020-05-18] MEDS: HALOPERIDOL 5 MG TABLET PO SCH (08:31)
[2020-05-18] MEDS: BENZTROPINE MESYLATE (1 MG) 1 MG TABLET PO SCH (08:31)
[2020-05-18] MEDS: METFORMIN 500 MG TABLET PO SCH (08:31)
[2020-05-18] MEDS: NICOTINE PATCH (14MG) 14 MG PATCH.TD24 TD SCH (08:43)
--- NOTE | 2020-05-18 08:50 | NUR ---
SW Discharge Note: Patient will be discharged today back to [facility] [address] [place] [address] ([phone]) via ambulance transportation at 1PM. Spoke with Maggie, pesticide use medical coordinator ([phone]) at the facility who states they are ready to accept the patient back today. Patient is alert and oriented x3 and is not able to plan for self-care at this time but is willing to continue to accept care provided for her at the facility. Patient denies suicidal or homicidal ideation. Patient is aware and agreeable with discharge plans. Patient presents with appropriate mood and congruent affect. Patients daughter, Maggie ([phone]) is made aware and is agreeable with discharge plan. Patient will continue to follow-up with her Psychiatrist Dr. Barnard and Bicycle Repairman Dr. Palomino at [facility] [address] [place] [address] ([phone]).
--- NOTE | 2020-05-18 14:15 | NUR ---
TEACHER PUBLIC HEALTH NOTE; 64 YEAR OLD FEMALE DISCHARGED TO [facility] IN STABLE CONDITION. PT COMPLIANT WITH MEDICATION ADMINISTRATION AND PLAN OF CARE. PSYCHIATRIC TREATMENT GOALS MET. MEDICAL TREATMENT GOALS DEFERRED FOR CONTINUED TREATMENT. MEDICATIONS RECONCILED WITH DR. PORTER AND Cosme CODY DNP. PT DENIES CURRENT SI/HI. PT INSTRUCTED TO CALL 911 OR GO TO THE NEAREST ER IF DEVELOPING THESE SYMPTOMS. EXIT CARE EXPLAINED TO PT. PT UNABLE TO RONAK PAPERS DUE TO CONFUSION. REPORT CALLED TO KIARA BARON FOR CONTINUITY OF CARE. PT ID BAND REMOVED. PT LEFT THE UNIT VIA GURNEY AND AMBULANCE AT 1415.
== END 2020-05-18 14:15 | DRG 885 ==
LOC: ER 23:04 → GPS 04-28 03:16
PROVIDERS: ADMIT Psychiatry & Neurology Psychiatry; ATTEND Hospitalist
DX: F25.9 Schizoaffective disorder, unspecified (principal); E11.65 Type 2 diabetes mellitus with hyperglycemia; N39.0 Urinary tract infection, site not specified; F29 Unspecified psychosis not due to a substance or known physiological condition; F41.9 Anxiety disorder, unspecified; E66.9 Obesity, unspecified; E78.5 Hyperlipidemia, unspecified; I10 Essential (primary) hypertension; J44.9 Chronic obstructive pulmonary disease, unspecified; M19.90 Unspecified osteoarthritis, unspecified site; Z79.4 Long term (current) use of insulin; B96.20 Unspecified Escherichia coli [E. coli] as the cause of diseases classified elsewhere; Z68.29 Body mass index [BMI] 29.0-29.9, adult
CPT/HCPCS: 36415; 80048-TC; 80076-TC; 80305; 81000-TC; 82565-TC; 82962-TC; 85025-TC; 87081-TC; 87086-TC; 87186-TC; G0480; J1630; J1631; J1815; J2060

== ENCOUNTER 2022-08-01 01:33 | Emergency (ER) | payer MEDICARE, OTHER ==
[~2022-08-01] VITALS: Ht 162.6 cm; Wt 80.7 kg
[~2022-08-01 01:33] MED LIST changes: +ASCO500W7 PO; -BENA5TAB5 PO; +BLOO-1672 MC; -GLIP10TA11 PO; +HUM100IN SQ; +INSU100V3 SQ; -INSU100V7 SQ; -METF-440 PO; +METF-442 PO; +RISP2TAB5 PO
--- NOTE | 2022-08-01 01:50 | NUR ---
MOUSTAPHA FROM [facility] C/O MED CLEARANCE. PT A/OX3. TOLERATING R/A AT 98% WITH NO RESP DISTRESS. AMBULATORY WITH STEADY GAIT. CONNECTED PT TO POX AND MONITOR. SAFETY MEASURES IN PLACE.
--- NOTE | 2022-08-01 01:57 | NUR ---
[facility] TECHNICIAN AT BEDSIDE
--- NOTE | 2022-08-01 01:57 | NUR ---
COVID AND URINE COLLECTED SENT TO LAB
[2022-08-01 02:24] LABS: BASOPHILS % (AUTO) 0.3 % (0.0-2.0); EOSINOPHILS % (AUTO) 2.2 % (0.0-6.0); HEMATOCRIT 43 % (33-45); HEMOGLOBIN 14.1 g/dL (11.5-14.8); LYMPHOCYTES # (AUTO) 3.3 K/uL (0.8-4.8); LYMPHOCYTES % (AUTO) 35.8 % (20.0-44.0); MEAN CORPUSCULAR HGB CONC 33 g/dl (31.0-36.0); MEAN CORPUSCULAR VOLUME 88 fL (82-100); MONOCYTES # (AUTO) 0.6 K/uL (0.1-1.30); MONOCYTES % (AUTO) 6.9 % (2.0-12.0); NEUTROPHILS # (AUTO) 5.1 K/uL (1.8-8.9); NEUTROPHILS % (AUTO) 54.8 % (43.0-81.0); PLATELET COUNT (AUTO) 320 K/uL (150-450); RED BLOOD CELL COUNT(AUTO) 4.89 MIL/uL (4.0-5.2); WHITE BLOOD COUNT (AUTO) 9.3 K/uL (4.3-11.0)
[2022-08-01 02:31] LABS: BILIRUBIN,URINE NEGATIVE (NEGATIVE); COLOR,URINE YELLOW (YELLOW); LEUKOCYTE ESTERASE ,URINE NEGATIVE (NEGATIVE); NITRITE, URINE NEGATIVE (NEGATIVE); PH,URINE 5.5 (5.0-8.0); PROTEIN,URINE NEGATIVE (NEGATIVE); UGLUCOSE NEGATIVE (NEGATIVE); UROBILINOGEN,URINE 0.2 EU/dL (0.2)
[2022-08-01 02:36] LABS: CALCIUM, SERUM 10.1 mg/dL (8.5-10.1); CARBON DIOXIDE 26 mmol/L (21-32); CHLORIDE 100 mmol/L (98-107); CREATININE 0.9 mg/dL (0.6-1.3); SODIUM SERUM 131 mmol/L (136-145); UREA NITROGEN, BLOOD 20 mg/dL (7-18)
[2022-08-01 02:37] LABS: GLUCOSE 465 mg/dL (74-106)
[2022-08-01 02:42] LABS: ALANINE AMINOTRANSFERASE 32 U/L (12-78); ALBUMIN 3.6 g/dL (3.4-5.0); ALCOHOL, BLOOD < 3 mg/dL (0-0); ALKALINE PHOSPHATASE 200 U/L (46-116); ASPARTATE AMINOTRANSFERASE 16 U/L (15-37); BILIRUBIN,DIRECT 0.1 mg/dL (0.0-0.2); BILIRUBIN,TOTAL 0.5 mg/dL (0.2-1.0); TOTAL PROTEIN, SERUM 7.8 g/dL (6.4-8.2)
[2022-08-01 02:46] LABS: ACETAMINOPHEN 0 ug/ml (10-30)
[2022-08-01] MEDS ORDERED: INSULIN REGULAR, HUMAN 100 UNIT/ML 10 ML VIAL SQ ONE (03:00)
[2022-08-01] MEDS ORDERED: INSULIN REGULAR, HUMAN 100 UNIT/ML 10 ML VIAL ONE (03:03)
--- NOTE | 2022-08-01 03:24 | NUR ---
CASSIA PRUITT PAGED FOR EVAL
[2022-08-01] MEDS ORDERED: DEXTROSE 50%-WATER 50 ML DISP.SYRIN IV PRN ×2 (03:30→13:30)
[2022-08-01] MEDS ORDERED: INSULIN REGULAR, HUMAN 100 UNIT/ML 3 ML VIAL SQ PRN ×2 (03:30→13:30)
[2022-08-01] MEDS ORDERED: *INSULIN REGULAR(HUMULIN R)HUM 100 UNIT/ML VIAL SQ PRN ×2 (03:30→13:30)
--- NOTE | 2022-08-01 04:13 | NUR ---
PT AMBULATORY TO RESTROOM WITH STEADY GAIT.
--- NOTE | 2022-08-01 04:23 | NUR ---
FOLLOWED UP WITH CASSIA PRUITT. PT WILL BE EVALUATED BY MORNING VP ANCILLARY
[2022-08-01] MEDS ORDERED: HUM INSULIN NPH SQ SCH (07:30)
[2022-08-01] MEDS ORDERED: [UNRECOGNIZED DRUG - OTHER] SQ SCH (07:30)
[2022-08-01] MEDS ORDERED: REG INSULIN SQ SCH (07:30)
[2022-08-01] MEDS ORDERED: BLOOD SUGAR DIAGNOSTIC 1 EACH STRIP VI SCH ×2 (07:30→17:30)
--- NOTE | 2022-08-01 08:39 | NUR ---
CALLED ART LEFT VM
[2022-08-01] MEDS ORDERED: GLIP5TAB13 PO (08:47)
[2022-08-01] MEDS ORDERED: CLON0.5T4 PO (08:47)
[2022-08-01] MEDS ORDERED: SERT25TA PO (08:47)
[2022-08-01] MEDS ORDERED: GEMF600T PO (08:47)
[2022-08-01] MEDS ORDERED: INSU100V7 SQ (08:47)
[2022-08-01] MEDS ORDERED: OLAN15TA3 PO (08:47)
[2022-08-01] MEDS ORDERED: DOCU-141 PO (08:47)
[2022-08-01] MEDS ORDERED: INSU100V3 SQ (08:47)
[2022-08-01] MEDS ORDERED: OLAN10TA3 PO (08:47)
[2022-08-01] MEDS ORDERED: LISI-657 PO (08:47)
[2022-08-01] MEDS ORDERED: ASPI-1420 PO (08:47)
[2022-08-01] MEDS ORDERED: ASCORBIC ACID 500 MG TABLET PO SCH (09:00)
[2022-08-01] MEDS ORDERED: METFORMIN 500 MG TABLET PO SCH (09:00)
[2022-08-01] MEDS ORDERED: ASCORBIC ACID 500 MG TABLET ONE (09:50)
--- NOTE | 2022-08-01 11:37 | NUR ---
MOVE SHEET SUBMITTED.
--- NOTE | 2022-08-01 11:47 | NUR ---
FAXED CLINICALS TO [facility]: FAX #: [phone]
[2022-08-01] MEDS ORDERED: OLANZAPINE 10 MG VIAL IM ONE ×2 (11:59→12:00)
--- NOTE | 2022-08-01 12:02 | NUR ---
[facility] CALLED FOR TRANSPORT PLACED ON WILL CALL.
--- NOTE | 2022-08-01 12:14 | NUR ---
report given to Carmelita BARON to continue care.
--- NOTE | 2022-08-01 12:35 | NUR ---
CALLED AND SPOKE WITH VERA FROM [facility], ACTIVATED WHEEL CALL. 60 MIN ETA. PRIMARY RN AWARE.
[2022-08-01 13:00] VITALS: BP 139/70
--- NOTE | 2022-08-01 15:31 | NUR ---
patient picked up by private ambulance going to [facility] psych unit.
[2022-08-01] MEDS ORDERED: DOCUSATE SODIUM 100 MG CAPSULE PO SCH (17:00)
[2022-08-01] MEDS ORDERED: GEMFIBROZIL 600 MG TABLET PO SCH (17:00)
[2022-08-01] MEDS ORDERED: glipiZIDE 5 MG TABLET PO SCH (17:00)
[2022-08-02] MEDS ORDERED: INSULIN GLARGINE, 100 UNIT/ML CARTRIDGE SQ SCH (07:30)
[2022-08-02] MEDS ORDERED: ASPIRIN EC 81 MG TABLET.DR PO SCH (09:00)
[2022-08-02] MEDS ORDERED: LISINOPRIL (10MG) 10 MG TABLET PO SCH (09:00)
== END 2022-08-01 15:31 ==
LOC: ER 01:48
DX: F20.9 Schizophrenia, unspecified (principal); Z91.14 Patient's other noncompliance with medication regimen; Z20.822 Contact with and (suspected) exposure to COVID-19; E11.65 Type 2 diabetes mellitus with hyperglycemia; Z79.4 Long term (current) use of insulin; I10 Essential (primary) hypertension; Z85.038 Personal history of other malignant neoplasm of large intestine; M19.90 Unspecified osteoarthritis, unspecified site; F17.200 Nicotine dependence, unspecified, uncomplicated; Z79.899 Other long term (current) drug therapy
CPT/HCPCS: 99284; 96372 ×2; 85025; 80048; 80076; 81003; 36415; 82962 ×2; 87426; 80143; 80320; 80307; J1815; J3490; C9803; G0480

== ENCOUNTER 2022-11-30 17:14 | Emergency (ER) | payer MEDICARE, OTHER ==
[~2022-11-30] VITALS: Ht 160 cm; Wt 72.6 kg
[~2022-11-30 17:14] MED LIST changes: -ASCO500W7 PO; +ASPI-1420 PO; -BLOO-1672 MC; +CLON0.5T4 PO; +DOCU-141 PO; +GEMF600T PO; +GLIP5TAB13 PO; -HUM100IN SQ; +INSU100V7 SQ; +LISI-657 PO; +OLAN10TA3 PO; +OLAN15TA3 PO; -RISP2TAB5 PO; +SERT25TA PO
[2022-11-30] MEDS ORDERED: ATOR40TA PO (17:53)
[2022-11-30] MEDS ORDERED: CALC-343 PO (17:53)
[2022-11-30] MEDS ORDERED: DIVA-78 PO (17:53)
[2022-11-30] MEDS ORDERED: HALO10TA13 PO (17:53)
[2022-11-30] MEDS ORDERED: BENZ1TAB7 PO (17:53)
[2022-11-30] MEDS ORDERED: DIPH50CA4 IM (17:53)
[2022-11-30] MEDS ORDERED: GABA-532 PO (17:53)
[2022-11-30] MEDS ORDERED: IBUP-1953 PO (17:53)
[2022-11-30] MEDS ORDERED: HALO5TAB8 PO (17:53)
[2022-11-30] MEDS ORDERED: CHOL200059 PO (17:53)
[2022-11-30 18:17] LABS: BASOPHILS % (AUTO) 0.5 % (0.0-2.0); EOSINOPHILS % (AUTO) 2.7 % (0.0-6.0); HEMATOCRIT 39 % (33-45); HEMOGLOBIN 13.2 g/dL (11.5-14.8); LYMPHOCYTES # (AUTO) 2.9 K/uL (0.8-4.8); MEAN CORPUSCULAR HGB CONC 34 g/dl (31.0-36.0); MEAN CORPUSCULAR VOLUME 88 fL (82-100); MONOCYTES # (AUTO) 0.6 K/uL (0.1-1.30); MONOCYTES % (AUTO) 6.5 % (2.0-12.0); NEUTROPHILS # (AUTO) 5.1 K/uL (1.8-8.9); NEUTROPHILS % (AUTO) 57.3 % (43.0-81.0); PLATELET COUNT (AUTO) 339 K/uL (150-450); RED BLOOD CELL COUNT(AUTO) 4.44 MIL/uL (4.0-5.2); WHITE BLOOD COUNT (AUTO) 8.9 K/uL (4.3-11.0)
[2022-11-30 18:40] LABS: ALANINE AMINOTRANSFERASE 22 U/L (12-78); ALBUMIN 3.2 g/dL (3.4-5.0); ALKALINE PHOSPHATASE 181 U/L (46-116); ASPARTATE AMINOTRANSFERASE 12 U/L (15-37); BILIRUBIN,DIRECT 0.1 mg/dL (0.0-0.2); BILIRUBIN,TOTAL 0.3 mg/dL (0.2-1.0); CALCIUM, SERUM 9.4 mg/dL (8.5-10.1); CARBON DIOXIDE 20 mmol/L (21-32); CHLORIDE 101 mmol/L (98-107); CREATININE 0.9 mg/dL (0.6-1.3); POTASSIUM 4.1 mmol/L (3.5-5.1); SODIUM SERUM 131 mmol/L (136-145); TOTAL PROTEIN, SERUM 6.7 g/dL (6.4-8.2); UREA NITROGEN, BLOOD 16 mg/dL (7-18)
[2022-11-30 18:42] LABS: ACETAMINOPHEN < 10 ug/ml (10-30); ALCOHOL, BLOOD < 3 mg/dL (0-0); GLUCOSE 380 mg/dL (74-106)
--- NOTE | 2022-11-30 18:55 | NUR ---
COVID SWAB COLLECTED AND SENT TO LAB
--- NOTE | 2022-11-30 19:10 | NUR ---
PT TAKEN TO RADIOLOGY
--- NOTE | 2022-11-30 19:45 | NUR ---
CALLED THERESA SPOKE TO [facility] SUPPORT WORKER #[phone] WILL FILE REPORT OF MISSING PATIENT
--- NOTE | 2022-11-30 19:45 | NUR ---
PATIENT IS NOT IN BED. RISK MANAGEMENT INTERNSHIP AND STAFF ALERTED. WILL LOOK FOR PATIENT INSIDE HOSPITAL/ HOSPITAL PREMISES.
--- NOTE | 2022-11-30 19:45 | NUR ---
THERESA NOTIFIED OF PATIENT BEING GONE FROM HOSPITAL
[2022-11-30 19:54] LABS: BILIRUBIN,URINE NEGATIVE (NEGATIVE); COLOR,URINE YELLOW (YELLOW); LEUKOCYTE ESTERASE ,URINE NEGATIVE (NEGATIVE); NITRITE, URINE POSITIVE (NEGATIVE); PH,URINE 5.5 (5.0-8.0); PROTEIN,URINE NEGATIVE (NEGATIVE); UGLUCOSE 3+ mg/dL (NEGATIVE); UROBILINOGEN,URINE 0.2 EU/dL (0.2)
[2022-11-30 20:24] LABS: BACTERIA,URINE 4+ /HPF (None Seen); MUCUS,URINE Few /LPF (None Seen); RBC,URINE 0-2 /HPF (0-2); WBC,URINE 0-2 /HPF (0-3)
--- NOTE | 2022-11-30 21:00 | NUR ---
Patient eloped from facility. ER MD notified. [employer] INFORMED WELL.
[2022-11-30 21:01] VITALS: BP 110/72
== END 2022-11-30 21:02 | disposition left against medical advice (07) ==
LOC: ER 17:22
DX: R45.1 Restlessness and agitation (principal); S06.9X9A Unspecified intracranial injury with loss of consciousness of unspecified duration, initial encounter; R40.2362 Coma scale, best motor response, obeys commands, at arrival to emergency department; R40.2142 Coma scale, eyes open, spontaneous, at arrival to emergency department; R40.2252 Coma scale, best verbal response, oriented, at arrival to emergency department; Y04.2XXA Assault by strike against or bumped into by another person, initial encounter; R46.89 Other symptoms and signs involving appearance and behavior; Y92.129 Unspecified place in nursing home as the place of occurrence of the external cause; E11.65 Type 2 diabetes mellitus with hyperglycemia; Z79.4 Long term (current) use of insulin; Z79.84 Long term (current) use of oral hypoglycemic drugs; I10 Essential (primary) hypertension; Z85.038 Personal history of other malignant neoplasm of large intestine; Z20.822 Contact with and (suspected) exposure to COVID-19; Z53.20 Procedure and treatment not carried out because of patient's decision for unspecified reasons
CPT/HCPCS: 36415; 70450-TC; 80048-TC; 80076-TC; 81001; 82962-TC; 85025-TC; 87086-TC; C9803; G0480

== ENCOUNTER 2023-03-14 23:09 | Inpatient (IN) | payer MEDICARE, OTHER ==
[~2023-03-14] VITALS: Ht 172.7 cm; Wt 77.1 kg
[~2023-03-14 23:09] MED LIST changes: +ATOR40TA PO; +BENZ1TAB7 PO; +CALC-343 PO; +CHOL200059 PO; -CLON0.5T4 PO; +DIPH50CA4 IM; +DIVA-78 PO; +GABA-532 PO; -GEMF600T PO; -GLIP5TAB13 PO; +HALO10TA13 PO; +HALO5TAB8 PO; +IBUP-1953 PO; -INSU100V7 SQ; -OLAN10TA3 PO; -OLAN15TA3 PO; -SERT25TA PO
--- NOTE | 2023-03-14 23:54 | NUR ---
GORAN 305 FROM [facility] WITH CC OF PHYSICALLY AGGRESSIVE TO STAFF, REFUSED MEDICATIONS AND TREATMENT IN FACILITY. A/OX3; PARANOID. TOLERATING R/A WELL WITH NO RESP DISTRESS. SAFETY MEASURES IN PLACE.
[2023-03-15] MEDS ORDERED: IV NS 0.9% 1,000 ML IV ONE
--- NOTE | 2023-03-15 00:09 | NUR ---
COVID ANTIGEN SWAB COLLECTED AND SENT TO LAB
--- NOTE | 2023-03-15 00:20 | NUR ---
orthotics prosthetics technician at pt's bedside
--- NOTE | 2023-03-15 00:30 | NUR ---
lac#18g s/l blood collected and sent to lab
[2023-03-15 00:38] LABS: BASOPHILS % (AUTO) 0.5 % (0.0-2.0); HEMATOCRIT 42 % (33-45); HEMOGLOBIN 13.9 g/dL (11.5-14.8); LYMPHOCYTES # (AUTO) 2.2 K/uL (0.8-4.8); LYMPHOCYTES % (AUTO) 34.3 % (20.0-44.0); MEAN CORPUSCULAR HGB CONC 33 g/dl (31.0-36.0); MEAN CORPUSCULAR VOLUME 88 fL (82-100); MONOCYTES # (AUTO) 0.4 K/uL (0.1-1.30); MONOCYTES % (AUTO) 6.9 % (2.0-12.0); NEUTROPHILS # (AUTO) 3.5 K/uL (1.8-8.9); NEUTROPHILS % (AUTO) 56.3 % (43.0-81.0); PLATELET COUNT (AUTO) 309 K/uL (150-450); RED BLOOD CELL COUNT(AUTO) 4.73 MIL/uL (4.0-5.2); WHITE BLOOD COUNT (AUTO) 6.3 K/uL (4.3-11.0)
[2023-03-15 00:52] LABS: ALANINE AMINOTRANSFERASE 32 U/L (12-78); ALBUMIN 3.2 g/dL (3.4-5.0); ALCOHOL, BLOOD < 3 mg/dL (0-10); ALKALINE PHOSPHATASE 237 U/L (46-116); ASPARTATE AMINOTRANSFERASE 12 U/L (15-37); BILIRUBIN,TOTAL 0.3 mg/dL (0.2-1.0); CALCIUM, SERUM 9.5 mg/dL (8.5-10.1); CARBON DIOXIDE 26 mmol/L (21-32); CHLORIDE 100 mmol/L (98-107); CREATININE 0.8 mg/dL (0.6-1.3); POTASSIUM 3.8 mmol/L (3.5-5.1); SODIUM SERUM 133 mmol/L (136-145); TOTAL PROTEIN, SERUM 7.1 g/dL (6.4-8.2); UREA NITROGEN, BLOOD 23 mg/dL (7-18)
[2023-03-15 00:54] LABS: GLUCOSE 472 mg/dL (74-106)
--- NOTE | 2023-03-15 00:55 | NUR ---
472; DR REZA DOMINGO AWARE
[2023-03-15] MEDS ORDERED: INSULIN REGULAR, HUMAN 100 UNIT/ML 10 ML VIAL SQ ONE ×2 (01:00→10:00)
--- NOTE | 2023-03-15 01:10 | NUR ---
URINE COLLECTED AND SENT TO LAB
--- NOTE | 2023-03-15 01:54 | NUR ---
[facility] AT BED SIDE
[2023-03-15 02:07] LABS: BILIRUBIN,URINE NEGATIVE (NEGATIVE); COLOR,URINE YELLOW (YELLOW); LEUKOCYTE ESTERASE ,URINE NEGATIVE (NEGATIVE); NITRITE, URINE NEGATIVE (NEGATIVE); PROTEIN,URINE NEGATIVE (NEGATIVE); UGLUCOSE 3+ mg/dL (NEGATIVE); UROBILINOGEN,URINE 0.2 EU/dL (0.2)
[2023-03-15 02:08] LABS: BACTERIA,URINE Rare /HPF (None Seen); RBC,URINE 0-2 /HPF (0-2); SQUAMOUS EPITHELIAL CELL,UR Few /HPF (None Seen); WBC,URINE 0-2 /HPF (0-3)
--- NOTE | 2023-03-15 02:18 | NUR ---
REPORT GIVEN TO ASHA RUSSELL RN FOR AARON
[2023-03-15] MEDS ORDERED: DEXTROSE 50%-WATER 50 ML DISP.SYRIN IV PRN ×2 (02:30→09:00)
[2023-03-15] MEDS ORDERED: INSULIN REGULAR, HUMAN 100 UNIT/ML 3 ML VIAL SQ PRN (02:30)
[2023-03-15 02:50] VITALS: BP 149/82
--- NOTE | 2023-03-15 02:52 | NUR ---
PT TRANSFERRED TO [facility] VIA HOSPITAL PROTOCOL. VSS. ALL BELONGINGS WITH PT.
[2023-03-15] MEDS ORDERED: TEMAZEPAM 7.5 MG CAPSULE PO PRN (03:30)
[2023-03-15] MEDS ORDERED: BLOOD SUGAR DIAGNOSTIC 1 EACH STRIP IN ONE (03:30)
[2023-03-15] MEDS ORDERED: MAGNESIUM HYDROXIDE 30 ML UDC PO PRN (03:30)
--- NOTE | 2023-03-15 03:51 | NUR ---
RN NOTE :- REFUSED SKIN ASSESSMENT PATIENT REFUSED FULL BODY SKIN ASSESSMENT AND PHOTOS TAKEN ,PT NOTED WITH PER PT STATED PORTHA CATHETER IN RIGHT SITE OF CHEST FOR CANCER TX.
--- NOTE | 2023-03-15 04:56 | NUR ---
RN NOTES : ADMISSION NOTES: ADMITTED THIS 67 Y/O FEMALE PATIENT ADMITTED FROM [facility], INITIALLY FROM [facility]. ADMITTED TO 5150 HOLD PER HOLD GD ,DANGER TO OTHERS. PT. INCREASED AGITATED AND ATTACKING STAFF AT THE FACILITY, UPON FACE TO FACE ASSESSMENT PATIENT IS A&OX3 ,ANXIOUS EASILY AGITATED, RESTLESS , CONFUSED ,DISORGANIZED,PARANOID DISHELVED, UNCOOPERATIVE/COOPERATIVE AT TIMES , DENIES SI /HI AT THIS TIME.PT. REFUSED TO SKIN ASSESSMENT,TAKE PICTURES.. AWARE AND NOTIFIED OF THE ADMISSION, BELONGINGS CONTRABAND WERE DONE , PT. REFUSED SIGNS ADMISSION CONSENT PAPER DUE TO CONFUSED,DISORGNIZED , PT. RIGHTS DISCUSS BY MILK PASTEURIZER , PROVIDE THE PT. WITH HANDBOOK, AND MEDICATIONS GUIDE, ENVIRONMENTAL SAFETY CHECK DONE, ENCOURAGED PT. VERBALIZED ANY FEELING CONCERN TO STAFF, ORIENT TO UNIT POLICY, NO ACUTE DISTRESS NOTED,VITAL SIGNS WNL ,DENIES ANY PAIN AT THIS TIME,WILL CONTINUE TO MONITOR FOR Q15 SAFETY AND BEHAVIOR.
--- NOTE | 2023-03-15 06:46 | NUR ---
RN NOTE :- PATIENT RESTING IN BED 2.5 HOURS OF SLEEP, NO S/S OF DISTRESS OR DISCOMFORT. PT. BEHAVIOR WAS COOPERTIVE ,ANXIOUS THROUGHOUT SHIFT, A/Ox3. NO S/S OF RESPIRATORY DISTRESS. SAFETY PRECAUTIONS MAINTAINED, ALL NEEDS ATTENDED AND ANTICIPATED, WILL CONTINUE TO MONITOR FOR SAFETY AND BEHAVIOR.
--- NOTE | 2023-03-15 07:00 | NUR ---
STEEL POST INSTALLER SUPERVISOR OPENING NOTE PATIENT AWAKE, ALERT AND ORIENTED X3. PATIENT DENIES PAIN, NO RESPIRATORY DISTRESS NOTED. AMBULATORY, STEADY GAIT NOTED. PATIENT ADDRESSED HER CONCERN ABOUT GLUCOSE LEVEL ELEVATED. I EXPLAINED TO PATIENT THAT HER DOCTOR IS TREATING HER DIABETIC ALREADY. WILL CONTINUE TO MONITOR. SAFETY MEASURES IN PLACE, BED LOCKED TO THE LOWEST POSITION, TABLE WITHIN REACH.
[2023-03-15] MEDS ORDERED: BLOOD SUGAR DIAGNOSTIC 1 EACH STRIP IN SCH (07:30)
[2023-03-15 08:00] VITALS: BP 146/81
--- NOTE | 2023-03-15 08:00 | NUR ---
CAPACITY PLANNER NOTE PATIENT GLUCOSE LEVEL 481 10 UNITS REGULAR INSULIN SC ADMINISTERED FOLLOWING SLIDING SCALE. NOTIFIED TO DR. STACK AND LEFT ORDER TO GIVE ANOTHER DOSE OF 10UNITS REGULAR .
[2023-03-15] MEDS: DOCUSATE SODIUM 100 MG CAPSULE PO SCH ×2 (09:00→16:45)
--- NOTE | 2023-03-15 09:00 | NUR ---
COUNTER CLERK TRACTOR PARTS NOTE DR. STACK ORDERED TO CHANGE SLIDING SCALE TO AGGRESSIVE. AARON RN(CHARGE NURSE) NOTIFIED ABOUT THIS CHANGE.
[2023-03-15] MEDS: BENZTROPINE MESYLATE (1 MG) 1 MG TABLET PO SCH ×3 (09:01→16:46)
[2023-03-15] MEDS: ASPIRIN EC 81 MG TABLET.DR PO SCH (09:01)
[2023-03-15] MEDS: CALCIUM CARBONATE 500 MG TAB.CHEW PO SCH (09:01)
[2023-03-15] MEDS: LISINOPRIL (10MG) 10 MG TABLET PO SCH (09:01)
[2023-03-15] MEDS: METFORMIN 500 MG TABLET PO SCH ×2 (09:01→17:37)
[2023-03-15] MEDS: GABAPENTIN 100 MG CAPSULE PO SCH ×2 (09:02→16:46)
--- NOTE | 2023-03-15 10:01 | NUR ---
ELIZABETH Initial Discharge Note: Patient currently resides at [address] [address]; ). ELIZABETH spoke with Diego dangelo who stated pt is welcomed back. ELIZABETH will work with the MD, family, and pt to help coordinate appropriate discharge.
--- NOTE | 2023-03-15 10:02 | NUR ---
ELIZABETH Clinical Note: Pt placed on a 5150 hold for danger to others and GD. Per hold, pt was aggressive at the facility. Patient currently resides at [address] [address]; ). ELIZABETH spoke with Diego dangelo who stated pt is welcomed back.
[2023-03-15] MEDS ORDERED: INSU100V11 SQ ×2 (10:17)
[2023-03-15] MEDS ORDERED: POLY15DR40 EACHEYE (10:17)
[2023-03-15] MEDS ORDERED: LITH150C PO (10:17)
[2023-03-15] MEDS ORDERED: RISP0.2515 PO (10:17)
[2023-03-15] MEDS ORDERED: LEVO50TA8 PO (10:17)
[2023-03-15] MEDS: INSULIN REGULAR, HUMAN 100 UNIT/ML 3 ML VIAL SQ PRN ×2 (11:31→17:27)
[2023-03-15] MEDS: BLOOD SUGAR DIAGNOSTIC 1 EACH STRIP IN SCH ×3 (11:36→22:45)
--- NOTE | 2023-03-15 14:09 | NUR ---
ELIZABETH Family Contact: ELIZABETH contacted patient's daughter Maggie ([phone]) and notified of discharge and treatment plan. She would want pt to return back when stable.
[2023-03-15] MEDS: risperiDONE 1 MG TABLET PO SCH ×2 (14:43→16:46)
[2023-03-15 16:00] VITALS: BP 134/75
[2023-03-15] MEDS: HALOPERIDOL 5 MG TABLET PO SCH ×2 (16:45→20:24)
[2023-03-15] MEDS: ACETAMINOPHEN 325 MG TABLET PO PRN (17:45)
--- NOTE | 2023-03-15 19:01 | NUR ---
FOAMING MACHINE OPERATOR CLOSING NOTE PATIENT IS CALM, AWAKE,ALERT AND ORIENTED. RESTING IN BED WITHOUT S/S OF PAIN OR DISCOMFORT. SAFETY MEASURES IN PLACE. BED LOCKED TO THE LOWEST POSITION. TABLE WITHIN REACH. I WILL ENDORSE TO THE FOLLOWING NURSE.
[2023-03-15] MEDS: ATORVASTATIN 40 MG TABLET PO SCH (22:04)
[2023-03-15] MEDS: *INSULIN REGULAR(HUMULIN R)HUM 100 UNIT/ML VIAL SQ PRN (22:23)
[2023-03-15] MEDS: INSULIN GLARGINE, 100 UNIT/ML CARTRIDGE SQ SCH (22:24)
--- NOTE | 2023-03-16 06:44 | NUR ---
GPS RN NOTE: PATIENT RESTING IN BED 8 HOURS OF SLEEP, NO S/S OF DISTRESS OR DISCOMFORT. PT. BEHAVIOR WAS COOPERTIVE THROUGHOUT SHIFT, A/OX 3. NO S/S OF RESPIRATORY DISTRESS. MED COMPLIANT, SAFETY PRECAUTIONS MAINTAINED, ALL NEEDS ATTENDED AND ANTICIPATED, WILL CONTINUE TO MONITOR FOR SAFETY AND BEHAVIOR.
--- NOTE | 2023-03-16 07:00 | NUR ---
CASE FINISHER OPENING NOTE PATIENT SLEEPING BUT ABLE TO VERBALIZE NEEDS AT PRESENT. DENIES PAIN. NO S/S OF DISTRESS NOTED. SAFETY MEASURES IN PLACE, BED LOCKED TO THE LOWEST POSITION, TABLE WITHIN REACH. SIDE RAILS UP X3. PATIENT IS AMBULATORY. CONT. TO MONITOR.
[2023-03-16 07:25] LABS: ALBUMIN 2.9 g/dL (3.4-5.0); BILIRUBIN,TOTAL 0.3 mg/dL (0.2-1.0); CALCIUM, SERUM 10.3 mg/dL (8.5-10.1); CREATININE 0.9 mg/dL (0.6-1.3); POTASSIUM 4.4 mmol/L (3.5-5.1); TOTAL PROTEIN, SERUM 6.6 g/dL (6.4-8.2)
[2023-03-16] MEDS: INSULIN REGULAR, HUMAN 100 UNIT/ML 3 ML VIAL SQ PRN ×3 (07:57→17:41)
[2023-03-16] MEDS: BLOOD SUGAR DIAGNOSTIC 1 EACH STRIP IN SCH ×4 (07:59→22:11)
[2023-03-16 08:00] VITALS: BP 123/74
[2023-03-16] MEDS: METFORMIN 500 MG TABLET PO SCH ×2 (08:14→16:30)
[2023-03-16 09:00] VITALS: BP 125/76
[2023-03-16] MEDS: CALCIUM CARBONATE 500 MG TAB.CHEW PO SCH (10:07)
[2023-03-16] MEDS: risperiDONE 1 MG TABLET PO SCH ×2 (10:07→16:29)
[2023-03-16] MEDS: GABAPENTIN 100 MG CAPSULE PO SCH ×2 (10:07→16:29)
[2023-03-16] MEDS: LISINOPRIL (10MG) 10 MG TABLET PO SCH (10:08)
[2023-03-16] MEDS: BENZTROPINE MESYLATE (1 MG) 1 MG TABLET PO SCH ×3 (10:08→16:30)
[2023-03-16] MEDS: HALOPERIDOL 5 MG TABLET PO SCH ×3 (10:08→21:54)
[2023-03-16] MEDS: ASPIRIN EC 81 MG TABLET.DR PO SCH (10:08)
[2023-03-16] MEDS: DOCUSATE SODIUM 100 MG CAPSULE PO SCH ×2 (10:09→16:31)
[2023-03-16] MEDS: ERGOCALCIFEROL (VITAMIN D 2) 50,000 UNIT CAPSULE PO SCH (10:09)
[2023-03-16] MEDS: LITHIUM CARBONATE 150 MG CAPSULE PO SCH (16:30)
[2023-03-16] MEDS: ATORVASTATIN 40 MG TABLET PO SCH (21:54)
[2023-03-16 22:00] VITALS: BP 125/76
[2023-03-16] MEDS: *INSULIN REGULAR(HUMULIN R)HUM 100 UNIT/ML VIAL SQ PRN (22:12)
[2023-03-16] MEDS: INSULIN GLARGINE, 100 UNIT/ML CARTRIDGE SQ SCH (22:13)
--- NOTE | 2023-03-17 06:39 | NUR ---
GPS RN NOTE: PATIENT RESTING IN BED 9 HOURS OF SLEEP, NO S/S OF DISTRESS OR DISCOMFORT. PT. BEHAVIOR WAS COOPERTIVE THROUGHOUT SHIFT, A/OX 3. NO S/S OF RESPIRATORY DISTRESS. MED COMPLIANT,SAFETY PRECAUTIONS MAINTAINED, ALL NEEDS ATTENDED AND ANTICIPATED, WILL CONTINUE TO MONITOR FOR SAFETY AND BEHAVIOR.
[2023-03-17 08:00] VITALS: BP 103/64
[2023-03-17] MEDS: BLOOD SUGAR DIAGNOSTIC 1 EACH STRIP IN SCH ×4 (08:26→21:10)
[2023-03-17] MEDS: INSULIN REGULAR, HUMAN 100 UNIT/ML 3 ML VIAL SQ PRN ×3 (08:53→18:00)
[2023-03-17] MEDS: LISINOPRIL (10MG) 10 MG TABLET PO SCH (09:00)
[2023-03-17] MEDS: LITHIUM CARBONATE 150 MG CAPSULE PO SCH ×2 (09:10→18:05)
[2023-03-17] MEDS: DOCUSATE SODIUM 100 MG CAPSULE PO SCH ×2 (09:10→18:05)
[2023-03-17] MEDS: CALCIUM CARBONATE 500 MG TAB.CHEW PO SCH (09:10)
[2023-03-17] MEDS: HALOPERIDOL 5 MG TABLET PO SCH ×3 (09:10→21:00)
[2023-03-17] MEDS: METFORMIN 500 MG TABLET PO SCH ×2 (09:12→18:04)
[2023-03-17] MEDS: risperiDONE 1 MG TABLET PO SCH ×2 (09:12→18:04)
[2023-03-17] MEDS: ASPIRIN EC 81 MG TABLET.DR PO SCH (09:13)
[2023-03-17] MEDS: BENZTROPINE MESYLATE (1 MG) 1 MG TABLET PO SCH ×3 (09:13→18:05)
[2023-03-17] MEDS: GABAPENTIN 100 MG CAPSULE PO SCH ×2 (09:13→18:04)
[2023-03-17 16:00] VITALS: BP 125/84
--- NOTE | 2023-03-17 19:19 | NUR ---
VERY COOPERATIVE,PACING AT TIMES,MED COMPLIANT.
[2023-03-17 20:29] VITALS: BP 129/59
[2023-03-17] MEDS: ATORVASTATIN 40 MG TABLET PO SCH (21:00)
[2023-03-17 21:10] VITALS: BP 129/59
[2023-03-17] MEDS: *INSULIN REGULAR(HUMULIN R)HUM 100 UNIT/ML VIAL SQ PRN (21:13)
[2023-03-17] MEDS: INSULIN GLARGINE, 100 UNIT/ML CARTRIDGE SQ SCH (21:13)
--- NOTE | 2023-03-18 06:33 | NUR ---
ALERT/ORIENTED X3, ROOM AIR, NO COMPLAIN OF PAIN, COOPERATIVE WITH CARE, COMPLIANT WITH MEDICATION. ACCUCHECK AND SLIDING SCALE, STEADY GAIT, CONTINENT OF BOWEL AND BLADDER, WILL CONTINUE WITH THE PLAN OF CARE
--- NOTE | 2023-03-18 07:30 | NUR ---
PT RECEIVED RESTING COMFORTABLY IN BED. NO S/S OR C/O PAIN OR DISTRESS NOTED. SIDE RAILS UP X2. WILL CONTINUE PLAN OF CARE.
[2023-03-18 08:00] VITALS: BP 142/92
[2023-03-18] MEDS: BLOOD SUGAR DIAGNOSTIC 1 EACH STRIP IN SCH ×4 (08:00→21:36)
[2023-03-18] MEDS: INSULIN REGULAR, HUMAN 100 UNIT/ML 3 ML VIAL SQ PRN ×3 (08:28→17:33)
[2023-03-18] MEDS: BENZTROPINE MESYLATE (1 MG) 1 MG TABLET PO SCH ×3 (10:06→17:29)
[2023-03-18] MEDS: HALOPERIDOL 5 MG TABLET PO SCH ×3 (10:06→21:36)
[2023-03-18] MEDS: LISINOPRIL (10MG) 10 MG TABLET PO SCH (10:06)
[2023-03-18] MEDS: GABAPENTIN 100 MG CAPSULE PO SCH ×2 (10:06→17:29)
[2023-03-18] MEDS: ASPIRIN EC 81 MG TABLET.DR PO SCH (10:07)
[2023-03-18] MEDS: risperiDONE 1 MG TABLET PO SCH ×2 (10:07→17:29)
[2023-03-18] MEDS: DOCUSATE SODIUM 100 MG CAPSULE PO SCH ×2 (10:07→17:29)
[2023-03-18] MEDS: CALCIUM CARBONATE 500 MG TAB.CHEW PO SCH (10:07)
[2023-03-18] MEDS: LITHIUM CARBONATE 150 MG CAPSULE PO SCH ×2 (10:07→17:29)
[2023-03-18] MEDS: METFORMIN 500 MG TABLET PO SCH ×2 (10:08→17:29)
--- NOTE | 2023-03-18 18:37 | NUR ---
CHANGE OF SHIFT REPORT PT RESTING COMFORTABLY IN BED WITH EYES CLOSED. NO S/S OR C/O PAIN OR DISTRESS NOTED. PT KEPT CLEAN, DRY, AND COMFORTABLE. NO SIGNIFICANT CHANGES SINCE PREVIOUS SHIFT. WILL GIVE REPORT TO GEE BARON.
[2023-03-18 20:21] VITALS: BP 114/67
[2023-03-18] MEDS: ATORVASTATIN 40 MG TABLET PO SCH (21:36)
[2023-03-18] MEDS: *INSULIN REGULAR(HUMULIN R)HUM 100 UNIT/ML VIAL SQ PRN (21:38)
[2023-03-18] MEDS: INSULIN GLARGINE, 100 UNIT/ML CARTRIDGE SQ SCH (21:39)
[2023-03-19] MEDS: ACETAMINOPHEN 325 MG TABLET PO PRN (06:13)
--- NOTE | 2023-03-19 06:14 | NUR ---
RN NOTE PT COMPLAINED OF MILD SKINNER 12/22. ADMINISTERED TYLENOL 650 MG FOR MILD PAIN ORDERED. ALL NEEDS MET AT THIS TIME.
[2023-03-19] MEDS: BLOOD SUGAR DIAGNOSTIC 1 EACH STRIP IN SCH ×4 (06:42→21:36)
[2023-03-19] MEDS: INSULIN REGULAR, HUMAN 100 UNIT/ML 3 ML VIAL SQ PRN ×2 (06:44→11:42)
[2023-03-19 08:00] VITALS: BP 127/70
[2023-03-19] MEDS: GABAPENTIN 100 MG CAPSULE PO SCH ×2 (08:48→17:37)
[2023-03-19] MEDS: risperiDONE 1 MG TABLET PO SCH ×2 (08:49→17:37)
[2023-03-19] MEDS: METFORMIN 500 MG TABLET PO SCH ×2 (08:49→17:37)
[2023-03-19] MEDS: HALOPERIDOL 5 MG TABLET PO SCH ×3 (08:49→21:29)
[2023-03-19] MEDS: CALCIUM CARBONATE 500 MG TAB.CHEW PO SCH (08:49)
[2023-03-19] MEDS: LITHIUM CARBONATE 150 MG CAPSULE PO SCH ×2 (08:49→17:37)
[2023-03-19] MEDS: ASPIRIN EC 81 MG TABLET.DR PO SCH (08:49)
[2023-03-19] MEDS: LISINOPRIL (10MG) 10 MG TABLET PO SCH (08:49)
[2023-03-19] MEDS: DOCUSATE SODIUM 100 MG CAPSULE PO SCH ×2 (08:50→17:38)
[2023-03-19] MEDS: BENZTROPINE MESYLATE (1 MG) 1 MG TABLET PO SCH ×3 (08:50→17:37)
[2023-03-19 16:00] VITALS: BP 105/53
[2023-03-19 20:31] VITALS: BP 122/78
[2023-03-19] MEDS: ATORVASTATIN 40 MG TABLET PO SCH (21:29)
[2023-03-19] MEDS: INSULIN GLARGINE, 100 UNIT/ML CARTRIDGE SQ SCH (21:37)
[2023-03-19] MEDS: *INSULIN REGULAR(HUMULIN R)HUM 100 UNIT/ML VIAL SQ PRN (21:39)
[2023-03-20] MEDS: BLOOD SUGAR DIAGNOSTIC 1 EACH STRIP IN SCH ×4 (07:47→20:22)
[2023-03-20] MEDS: INSULIN REGULAR, HUMAN 100 UNIT/ML 3 ML VIAL SQ PRN ×3 (07:54→17:52)
[2023-03-20 08:00] VITALS: BP 153/79
[2023-03-20] MEDS: METFORMIN 500 MG TABLET PO SCH ×2 (08:52→18:27)
[2023-03-20] MEDS: LISINOPRIL (10MG) 10 MG TABLET PO SCH (09:20)
[2023-03-20] MEDS: DOCUSATE SODIUM 100 MG CAPSULE PO SCH ×2 (09:20→18:27)
[2023-03-20] MEDS: risperiDONE 1 MG TABLET PO SCH ×2 (09:21→18:27)
[2023-03-20] MEDS: ASPIRIN EC 81 MG TABLET.DR PO SCH (09:21)
[2023-03-20] MEDS: LITHIUM CARBONATE 150 MG CAPSULE PO SCH ×2 (09:21→18:27)
[2023-03-20] MEDS: GABAPENTIN 100 MG CAPSULE PO SCH ×2 (09:21→18:27)
[2023-03-20] MEDS: HALOPERIDOL 5 MG TABLET PO SCH ×4 (09:21→20:37)
[2023-03-20] MEDS: CALCIUM CARBONATE 500 MG TAB.CHEW PO SCH (09:21)
[2023-03-20] MEDS: BENZTROPINE MESYLATE (1 MG) 1 MG TABLET PO SCH ×3 (09:21→18:27)
[2023-03-20 16:08] VITALS: BP 100/52
[2023-03-20] MEDS: ATORVASTATIN 40 MG TABLET PO SCH (20:37)
[2023-03-20] MEDS: INSULIN GLARGINE, 100 UNIT/ML CARTRIDGE SQ SCH (20:42)
[2023-03-20] MEDS: *INSULIN REGULAR(HUMULIN R)HUM 100 UNIT/ML VIAL SQ PRN (20:45)
[2023-03-20 21:05] VITALS: BP 124/65
--- NOTE | 2023-03-21 04:03 | NUR ---
Closing Notes: pleasent + smiling cooperative + compliant with taking her ordered medications ambulates outside the room in a fast movement much time is spent in her room in bed large snack requested just prior going to sleep continent 2199 accucheck 173 coverage ordered
[2023-03-21] MEDS: BLOOD SUGAR DIAGNOSTIC 1 EACH STRIP IN SCH ×4 (07:40→21:35)
[2023-03-21] MEDS: GABAPENTIN 100 MG CAPSULE PO SCH ×2 (08:29→16:19)
[2023-03-21] MEDS: DOCUSATE SODIUM 100 MG CAPSULE PO SCH ×3 (08:29→16:20)
[2023-03-21] MEDS: LISINOPRIL (10MG) 10 MG TABLET PO SCH (08:30)
[2023-03-21] MEDS: CALCIUM CARBONATE 500 MG TAB.CHEW PO SCH (08:30)
[2023-03-21] MEDS: HALOPERIDOL 5 MG TABLET PO SCH ×4 (08:30→21:13)
[2023-03-21] MEDS: risperiDONE 1 MG TABLET PO SCH ×2 (08:30→16:19)
[2023-03-21] MEDS: METFORMIN 500 MG TABLET PO SCH ×2 (08:30→17:19)
[2023-03-21] MEDS: BENZTROPINE MESYLATE (1 MG) 1 MG TABLET PO SCH ×3 (08:30→16:19)
[2023-03-21] MEDS: ASPIRIN EC 81 MG TABLET.DR PO SCH (08:31)
[2023-03-21] MEDS: LITHIUM CARBONATE 150 MG CAPSULE PO SCH ×2 (08:31→16:20)
--- NOTE | 2023-03-21 11:20 | NUR ---
Court Notification: SW contacted pt's daughter Maggie ([phone]) to notify of 9000 hearing.
--- NOTE | 2023-03-21 11:21 | NUR ---
Court Hearing: Patient's court hearing for 8560 was today and it was upheld for GD.
[2023-03-21] MEDS: INSULIN REGULAR, HUMAN 100 UNIT/ML 3 ML VIAL SQ PRN ×2 (11:34→18:46)
[2023-03-21] MEDS: ACETAMINOPHEN 325 MG TABLET PO PRN (14:47)
--- NOTE | 2023-03-21 14:47 | NUR ---
NURSE NOTE: PT C/O PAIN. REQUESTED TYL AT THIS TIME. TYL ADMIN ORDERED. PT GOKUL WELL. WILL CONT TO MONITOR.
[2023-03-21] MEDS: METRONIDAZOLE 0.75% GEL 70 GM TUBE VG SCH ×2 (16:23→21:45)
[2023-03-21] MEDS: ATORVASTATIN 40 MG TABLET PO SCH (21:12)
[2023-03-21] MEDS: INSULIN GLARGINE, 100 UNIT/ML CARTRIDGE SQ SCH (21:36)
[2023-03-21] MEDS: *INSULIN REGULAR(HUMULIN R)HUM 100 UNIT/ML VIAL SQ PRN (21:37)
--- NOTE | 2023-03-22 06:23 | NUR ---
RN NOTE :-PATIENT IS CALM, AWAKE,ALERT AND ORIENTED. RESTING IN BED WITHOUT S/S OF PAIN OR DISCOMFORT. SAFETY MEASURES IN PLACE. BED LOCKED TO THE LOWEST POSITION. TABLE WITHIN REACH. WILL CONTINUE TO MONITOR.
[2023-03-22] MEDS: BLOOD SUGAR DIAGNOSTIC 1 EACH STRIP IN SCH ×4 (07:53→21:23)
[2023-03-22 08:00] VITALS: BP 142/69
[2023-03-22] MEDS: CALCIUM CARBONATE 500 MG TAB.CHEW PO SCH (08:20)
[2023-03-22] MEDS: GABAPENTIN 100 MG CAPSULE PO SCH ×2 (08:20→16:22)
[2023-03-22] MEDS: METFORMIN 500 MG TABLET PO SCH ×2 (08:20→17:04)
[2023-03-22] MEDS: BENZTROPINE MESYLATE (1 MG) 1 MG TABLET PO SCH ×3 (08:20→16:23)
[2023-03-22] MEDS: ASPIRIN EC 81 MG TABLET.DR PO SCH (08:20)
[2023-03-22] MEDS: HALOPERIDOL 5 MG TABLET PO SCH ×4 (08:21→21:14)
[2023-03-22] MEDS: LISINOPRIL (10MG) 10 MG TABLET PO SCH (08:21)
[2023-03-22] MEDS: LITHIUM CARBONATE 150 MG CAPSULE PO SCH ×2 (08:21→16:23)
[2023-03-22] MEDS: risperiDONE 1 MG TABLET PO SCH ×2 (08:21→16:22)
[2023-03-22] MEDS: INSULIN REGULAR, HUMAN 100 UNIT/ML 3 ML VIAL SQ PRN ×3 (08:24→17:07)
[2023-03-22] MEDS: DOCUSATE SODIUM 100 MG CAPSULE PO SCH ×2 (08:27→16:23)
[2023-03-22 16:00] VITALS: BP 100/63
--- NOTE | 2023-03-22 17:38 | NUR ---
RN-NOTES PATIENT IS VISIBLE IN THE UNIT,GUARDED QUIET ,CALM A/O X3.PATIENT ABLE TO VERBALIZED FEELINGS AND CONCERN TO THE STAFF ,NO PARTICIPATION IN THE GROUP ACTIVITIES. COMPLIANT WITH MEDICATIONS. AMBULATORY STEADY GAIT. ALL NEEDS ATTENDED AND ANTICIPATED. WILL CONT.MONITORING FOR SAFETY AND BEHAVIOR. WILL ENDORSE TO INCOMING SHIFT FOR THE CONTINUITY OF CARE.
[2023-03-22 20:00] VITALS: BP 108/62
[2023-03-22] MEDS: ATORVASTATIN 40 MG TABLET PO SCH (21:14)
[2023-03-22] MEDS: METRONIDAZOLE 0.75% GEL 70 GM TUBE VG SCH (21:17)
[2023-03-22] MEDS: *INSULIN REGULAR(HUMULIN R)HUM 100 UNIT/ML VIAL SQ PRN (21:25)
[2023-03-22] MEDS: INSULIN GLARGINE, 100 UNIT/ML CARTRIDGE SQ SCH (21:26)
[2023-03-22] MEDS: ACETAMINOPHEN 325 MG TABLET PO PRN (22:41)
[2023-03-23] MEDS: LORAZEPAM 0.5 MG TABLET PO PRN (00:47)
--- NOTE | 2023-03-23 00:49 | NUR ---
RN NOTES : ANXIETY PT. C/O FEELING ANXIOUS ,RESTLESS,PARANOID ,PRN ATIVAN 0.5 MG PO PRN GIVEN PER PT.REQUEST,WILL CONTINUE TO MONITOR.
--- NOTE | 2023-03-23 06:39 | NUR ---
GPS RN NOTE: PATIENT RESTING IN BED 9 HOURS OF SLEEP, NO S/S OF DISTRESS OR DISCOMFORT. PT. BEHAVIOR COOPERTIVE ,BUT EASILY AGITATED, NEEDS FREQUENTLY REDIRECTIONS . NO S/S OF RESPIRATORY DISTRESS. MED COMPLIANT AT THIS SHIFT, SAFETY PRECAUTIONS MAINTAINED, ALL NEEDS ATTENDED AND ANTICIPATED, WILL CONTINUE TO MONITOR FOR SAFETY AND BEHAVIOR.
[2023-03-23] MEDS: BLOOD SUGAR DIAGNOSTIC 1 EACH STRIP IN SCH ×4 (07:35→21:18)
[2023-03-23 08:00] VITALS: BP 134/68
[2023-03-23] MEDS: DOCUSATE SODIUM 100 MG CAPSULE PO SCH ×2 (09:08→16:23)
[2023-03-23] MEDS: HALOPERIDOL 5 MG TABLET PO SCH ×4 (09:08→20:47)
[2023-03-23] MEDS: GABAPENTIN 100 MG CAPSULE PO SCH ×2 (09:08→16:22)
[2023-03-23] MEDS: ERGOCALCIFEROL (VITAMIN D 2) 50,000 UNIT CAPSULE PO SCH (09:08)
[2023-03-23] MEDS: LITHIUM CARBONATE 150 MG CAPSULE PO SCH ×2 (09:08→16:22)
[2023-03-23] MEDS: METFORMIN 500 MG TABLET PO SCH ×2 (09:09→17:47)
[2023-03-23] MEDS: CALCIUM CARBONATE 500 MG TAB.CHEW PO SCH (09:09)
[2023-03-23] MEDS: LISINOPRIL (10MG) 10 MG TABLET PO SCH (09:09)
[2023-03-23] MEDS: risperiDONE 1 MG TABLET PO SCH ×2 (09:09→16:23)
[2023-03-23] MEDS: BENZTROPINE MESYLATE (1 MG) 1 MG TABLET PO SCH ×3 (09:09→16:21)
[2023-03-23] MEDS: ASPIRIN EC 81 MG TABLET.DR PO SCH (09:09)
[2023-03-23] MEDS: INSULIN REGULAR, HUMAN 100 UNIT/ML 3 ML VIAL SQ PRN ×3 (09:14→17:48)
[2023-03-23 15:59] VITALS: BP 120/74
--- NOTE | 2023-03-23 19:57 | NUR ---
GPS LAUNDRY PRICING CLERK NOTE: PATIENT IS VISIBLE IN THE UNIT,GUARDED QUIET ,CALM A/O X3.PATIENT ABLE TO VERBALIZED FEELINGS AND CONCERN TO THE STAFF, DENIES S/I. PACING FROM HER BEDROOM TO HALLWAY. DISHEVELED. AMBULATORY STEADY GAIT. WILL CONT.MONITORING FOR SAFETY AND BEHAVIOR.
[2023-03-23 20:00] VITALS: BP 114/67
[2023-03-23] MEDS: ATORVASTATIN 40 MG TABLET PO SCH (21:18)
[2023-03-23] MEDS: METRONIDAZOLE 0.75% GEL 70 GM TUBE VG SCH (21:19)
[2023-03-23] MEDS: INSULIN GLARGINE, 100 UNIT/ML CARTRIDGE SQ SCH (21:19)
[2023-03-23] MEDS: *INSULIN REGULAR(HUMULIN R)HUM 100 UNIT/ML VIAL SQ PRN (21:20)
--- NOTE | 2023-03-23 22:00 | NUR ---
GPS SILVER DESIGNER NOTE PT COOPERATIVE, COMPLIANT WITH HER MEDICATIONS.
--- NOTE | 2023-03-23 23:21 | NUR ---
GPS CIVIL ENGINEERING ASSISTANT NOTE PT NOTED SLEEPING AT THIS TIME, BREATHING EVEN AND UNLABORED. WILL CONT TO MONITOR BEHAVIOR AND PT'S SAFETY.
--- NOTE | 2023-03-24 02:02 | NUR ---
GPS BEAN DUMPER NOTE PT IS AWAKE AT THIS TIME, REQUESTING FOR SANDWICH/ SNACK, SANDWICH PROVIDED TO PT.WILL CONT TO MONITOR.
--- NOTE | 2023-03-24 03:05 | NUR ---
GPS PAINT AND TABLE EDGER NOTE PT APPEARS SLEEPING, EASY TO AROUSE, BREATHING EVEN AND UNLABORED. WILL CONT TO MONITOR BEHAVIOR AND SAFETY.
--- NOTE | 2023-03-24 06:10 | NUR ---
GPS MENTAL HEALTH UNIT LEAD PSYCHOLOGIST NOTE PATIENT IS CALM, AWAKE,ALERT AND ORIENTED. RESTING IN BED WITHOUT S/S OF PAIN OR DISCOMFORT. COOPERATIVE AND COMPLIANT WITH HER MEDICATIONS DURING SHIFT. SAFETY MEASURES IN PLACE. BED LOCKED TO THE LOWEST POSITION. TABLE WITHIN REACH. WILL CONTINUE TO MONITOR. WILL ENDORSE CONTINUATION OF CARE TO AM ONCOMING NURSE.
[2023-03-24] MEDS: BLOOD SUGAR DIAGNOSTIC 1 EACH STRIP IN SCH ×4 (07:49→22:13)
[2023-03-24 08:00] VITALS: BP 133/75
[2023-03-24] MEDS: ASPIRIN EC 81 MG TABLET.DR PO SCH (08:01)
[2023-03-24] MEDS: LITHIUM CARBONATE 150 MG CAPSULE PO SCH ×2 (08:01→16:32)
[2023-03-24] MEDS: GABAPENTIN 100 MG CAPSULE PO SCH ×2 (08:01→16:32)
[2023-03-24] MEDS: BENZTROPINE MESYLATE (1 MG) 1 MG TABLET PO SCH ×3 (08:01→16:32)
[2023-03-24] MEDS: METFORMIN 500 MG TABLET PO SCH ×2 (08:01→17:02)
[2023-03-24] MEDS: LISINOPRIL (10MG) 10 MG TABLET PO SCH (08:02)
[2023-03-24] MEDS: risperiDONE 1 MG TABLET PO SCH ×2 (08:02→16:32)
[2023-03-24] MEDS: HALOPERIDOL 5 MG TABLET PO SCH ×4 (08:02→21:43)
[2023-03-24] MEDS: CALCIUM CARBONATE 500 MG TAB.CHEW PO SCH (08:02)
[2023-03-24] MEDS: DOCUSATE SODIUM 100 MG CAPSULE PO SCH ×2 (08:04→17:00)
[2023-03-24] MEDS: INSULIN REGULAR, HUMAN 100 UNIT/ML 3 ML VIAL SQ PRN ×3 (08:04→17:02)
--- NOTE | 2023-03-24 15:18 | NUR ---
RN-NOTES PATIENT IS VISIBLE IN THE UNIT A/OX2-3,GUARDED,AMBULATORY STEADY GAIT. PATIENT IS COMPLIANT WITH MEDICATIONS,REFUSED GROUP ACTIVITY DESPITE ENCOURAGEMENT. PATIENT PREFERS TO STAY IN THE ROOM AND RES.COOPERATIVE WITH THE STAFF. ENCOURAGED TO VERBALIZE FEELINGS ANS CONCERN TO THE STAFF. PATIENT VERBALIZED UNDERSTANDING. ALL NEEDS ATTENDED AND ANTICIPATED. WILL CONT. MONITORING Q 15 MINS. FOR SAFETY AND BEHAVIOR.
[2023-03-24 16:00] VITALS: BP 128/69
--- NOTE | 2023-03-24 18:04 | NUR ---
RN-NOTES PATIENT REFUSED SHOWER THIS SHIFT DESPITE ENCOURAGEMENT. OFFERED X3
[2023-03-24 20:52] VITALS: BP 113/60
[2023-03-24] MEDS: ATORVASTATIN 40 MG TABLET PO SCH (21:47)
[2023-03-24] MEDS: METRONIDAZOLE 0.75% GEL 70 GM TUBE VG SCH (21:56)
[2023-03-24] MEDS: INSULIN GLARGINE, 100 UNIT/ML CARTRIDGE SQ SCH (22:14)
[2023-03-24] MEDS: *INSULIN REGULAR(HUMULIN R)HUM 100 UNIT/ML VIAL SQ PRN (22:15)
[2023-03-25] MEDS: BLOOD SUGAR DIAGNOSTIC 1 EACH STRIP IN SCH ×4 (07:57→22:00)
[2023-03-25] MEDS: INSULIN REGULAR, HUMAN 100 UNIT/ML 3 ML VIAL SQ PRN ×2 (07:59→13:35)
[2023-03-25 08:00] VITALS: BP 119/73
[2023-03-25] MEDS: BENZTROPINE MESYLATE (1 MG) 1 MG TABLET PO SCH ×3 (08:51→16:50)
[2023-03-25] MEDS: CALCIUM CARBONATE 500 MG TAB.CHEW PO SCH (08:51)
[2023-03-25] MEDS: DOCUSATE SODIUM 100 MG CAPSULE PO SCH ×2 (08:51→16:51)
[2023-03-25] MEDS: GABAPENTIN 100 MG CAPSULE PO SCH ×2 (08:52→16:51)
[2023-03-25] MEDS: LITHIUM CARBONATE 150 MG CAPSULE PO SCH ×2 (08:52→16:50)
[2023-03-25] MEDS: LISINOPRIL (10MG) 10 MG TABLET PO SCH (08:52)
[2023-03-25] MEDS: risperiDONE 1 MG TABLET PO SCH ×2 (08:53→16:51)
[2023-03-25] MEDS: ASPIRIN EC 81 MG TABLET.DR PO SCH (08:53)
[2023-03-25] MEDS: METFORMIN 500 MG TABLET PO SCH ×2 (08:53→17:47)
[2023-03-25] MEDS: HALOPERIDOL 5 MG TABLET PO SCH ×4 (08:53→21:57)
[2023-03-25 16:00] VITALS: BP 90/60
[2023-03-25 20:18] VITALS: BP 114/61
[2023-03-25] MEDS: ATORVASTATIN 40 MG TABLET PO SCH (21:57)
[2023-03-25] MEDS: INSULIN GLARGINE, 100 UNIT/ML CARTRIDGE SQ SCH (22:02)
[2023-03-25] MEDS: *INSULIN REGULAR(HUMULIN R)HUM 100 UNIT/ML VIAL SQ PRN (22:05)
--- NOTE | 2023-03-25 22:12 | NUR ---
Pt A/O x3 and able to make needs known. Pt is compliant with care and friendly with staff. Pt took shower with minimal assistance during shift. Compliant with all PM meds and tolerated well. Compliant with blood sugar check and compliant with insulin as ordered. No s/s of hypo/hyperglycemia noted. Pt is calm and resting in bed without s/s of any kind of distress. Has BRP. Vital signs within normal limits. Tolerating room air well without SOB noted. Frequent visual check done for safety Q 15mins. Will continue to monitor. Will endorse to next shift.
[2023-03-26] MEDS: BLOOD SUGAR DIAGNOSTIC 1 EACH STRIP IN SCH ×4 (08:14→21:10)
[2023-03-26] MEDS: GABAPENTIN 100 MG CAPSULE PO SCH ×2 (08:14→16:38)
[2023-03-26] MEDS: LITHIUM CARBONATE 150 MG CAPSULE PO SCH ×3 (08:15→16:38)
[2023-03-26] MEDS: HALOPERIDOL 5 MG TABLET PO SCH ×4 (08:15→20:55)
[2023-03-26] MEDS: BENZTROPINE MESYLATE (1 MG) 1 MG TABLET PO SCH ×3 (08:15→16:38)
[2023-03-26] MEDS: ASPIRIN EC 81 MG TABLET.DR PO SCH (08:15)
[2023-03-26] MEDS: METFORMIN 500 MG TABLET PO SCH ×2 (08:15→17:24)
[2023-03-26] MEDS: risperiDONE 1 MG TABLET PO SCH ×2 (08:15→16:38)
[2023-03-26] MEDS: CALCIUM CARBONATE 500 MG TAB.CHEW PO SCH (08:15)
[2023-03-26] MEDS: DOCUSATE SODIUM 100 MG CAPSULE PO SCH ×2 (08:16→16:39)
[2023-03-26] MEDS: LISINOPRIL (10MG) 10 MG TABLET PO SCH (08:16)
[2023-03-26] MEDS: INSULIN REGULAR, HUMAN 100 UNIT/ML 3 ML VIAL SQ PRN ×3 (08:20→21:27)
[2023-03-26] MEDS: ATORVASTATIN 40 MG TABLET PO SCH (21:09)
[2023-03-26] MEDS: INSULIN GLARGINE, 100 UNIT/ML CARTRIDGE SQ SCH (21:26)
[2023-03-26] MEDS: *INSULIN REGULAR(HUMULIN R)HUM 100 UNIT/ML VIAL SQ PRN (22:11)
[2023-03-26] MEDS: ACETAMINOPHEN 325 MG TABLET PO PRN (23:16)
[2023-03-27] MEDS: LORAZEPAM 0.5 MG TABLET PO PRN (02:44)
[2023-03-27] MEDS: MAG HYDROX/AL HYDROX/SIMETH 30 ML UDC PO PRN (02:44)
[2023-03-27] MEDS: BLOOD SUGAR DIAGNOSTIC 1 EACH STRIP IN SCH ×4 (07:41→21:40)
[2023-03-27] MEDS: INSULIN REGULAR, HUMAN 100 UNIT/ML 3 ML VIAL SQ PRN ×3 (07:47→16:52)
[2023-03-27 08:00] VITALS: BP 138/59
[2023-03-27] MEDS: CALCIUM CARBONATE 500 MG TAB.CHEW PO SCH (08:34)
[2023-03-27] MEDS: METFORMIN 500 MG TABLET PO SCH ×2 (08:34→17:39)
[2023-03-27] MEDS: LITHIUM CARBONATE 150 MG CAPSULE PO SCH ×3 (08:34→17:38)
[2023-03-27] MEDS: ASPIRIN EC 81 MG TABLET.DR PO SCH (08:34)
[2023-03-27] MEDS: risperiDONE 1 MG TABLET PO SCH ×2 (08:34→17:38)
[2023-03-27] MEDS: HALOPERIDOL 5 MG TABLET PO SCH ×4 (08:35→21:03)
[2023-03-27] MEDS: LISINOPRIL (10MG) 10 MG TABLET PO SCH (08:35)
[2023-03-27] MEDS: GABAPENTIN 100 MG CAPSULE PO SCH ×2 (08:35→17:38)
[2023-03-27] MEDS: BENZTROPINE MESYLATE (1 MG) 1 MG TABLET PO SCH ×3 (08:35→17:39)
[2023-03-27] MEDS: DOCUSATE SODIUM 100 MG CAPSULE PO SCH ×2 (08:35→17:39)
[2023-03-27] MEDS: ACETAMINOPHEN 325 MG TABLET PO PRN (15:54)
[2023-03-27 16:00] VITALS: BP 102/52
[2023-03-27 20:22] VITALS: BP 121/60
[2023-03-27] MEDS: ATORVASTATIN 40 MG TABLET PO SCH (21:03)
[2023-03-27] MEDS: INSULIN GLARGINE, 100 UNIT/ML CARTRIDGE SQ SCH (21:41)
[2023-03-27] MEDS: *INSULIN REGULAR(HUMULIN R)HUM 100 UNIT/ML VIAL SQ PRN (21:42)
[2023-03-28 08:00] VITALS: BP 135/77
[2023-03-28] MEDS: BLOOD SUGAR DIAGNOSTIC 1 EACH STRIP IN SCH ×4 (08:25→21:00)
[2023-03-28] MEDS: HALOPERIDOL 5 MG TABLET PO SCH ×4 (08:26→20:50)
[2023-03-28] MEDS: METFORMIN 500 MG TABLET PO SCH ×2 (08:26→18:01)
[2023-03-28] MEDS: ASPIRIN EC 81 MG TABLET.DR PO SCH (08:26)
[2023-03-28] MEDS: GABAPENTIN 100 MG CAPSULE PO SCH ×2 (08:26→18:00)
[2023-03-28] MEDS: LITHIUM CARBONATE 150 MG CAPSULE PO SCH ×3 (08:26→18:01)
[2023-03-28] MEDS: risperiDONE 1 MG TABLET PO SCH ×3 (08:26→18:00)
[2023-03-28] MEDS: BENZTROPINE MESYLATE (1 MG) 1 MG TABLET PO SCH ×3 (08:26→18:00)
[2023-03-28] MEDS: CALCIUM CARBONATE 500 MG TAB.CHEW PO SCH (08:26)
[2023-03-28] MEDS: LISINOPRIL (10MG) 10 MG TABLET PO SCH (08:27)
[2023-03-28] MEDS: DOCUSATE SODIUM 100 MG CAPSULE PO SCH ×2 (08:27→17:00)
[2023-03-28] MEDS: INSULIN REGULAR, HUMAN 100 UNIT/ML 3 ML VIAL SQ PRN ×3 (08:29→16:42)
[2023-03-28] MEDS: ACETAMINOPHEN 325 MG TABLET PO PRN ×2 (09:37→21:43)
[2023-03-28] MEDS ORDERED: risperiDONE 1 MG TABLET PO SCH (13:00)
[2023-03-28 16:00] VITALS: BP 116/63
[2023-03-28 19:42] VITALS: BP 143/70
[2023-03-28] MEDS: ATORVASTATIN 40 MG TABLET PO SCH (20:50)
[2023-03-28] MEDS: INSULIN GLARGINE, 100 UNIT/ML CARTRIDGE SQ SCH (20:57)
[2023-03-28] MEDS: *INSULIN REGULAR(HUMULIN R)HUM 100 UNIT/ML VIAL SQ PRN (20:59)
[2023-03-29] MEDS: BLOOD SUGAR DIAGNOSTIC 1 EACH STRIP IN SCH ×4 (07:50→21:50)
[2023-03-29] MEDS: METFORMIN 500 MG TABLET PO SCH ×2 (08:25→17:03)
[2023-03-29] MEDS: BENZTROPINE MESYLATE (1 MG) 1 MG TABLET PO SCH ×3 (08:25→17:03)
[2023-03-29] MEDS: DOCUSATE SODIUM 100 MG CAPSULE PO SCH ×2 (08:25→17:02)
[2023-03-29] MEDS: risperiDONE 1 MG TABLET PO SCH ×3 (08:26→17:03)
[2023-03-29] MEDS: LISINOPRIL (10MG) 10 MG TABLET PO SCH (08:26)
[2023-03-29] MEDS: HALOPERIDOL 5 MG TABLET PO SCH ×4 (08:26→21:49)
[2023-03-29] MEDS: CALCIUM CARBONATE 500 MG TAB.CHEW PO SCH (08:26)
[2023-03-29] MEDS: LITHIUM CARBONATE 150 MG CAPSULE PO SCH ×3 (08:26→17:02)
[2023-03-29] MEDS: ASPIRIN EC 81 MG TABLET.DR PO SCH (08:26)
[2023-03-29] MEDS: GABAPENTIN 100 MG CAPSULE PO SCH ×2 (08:26→17:02)
--- NOTE | 2023-03-29 08:26 | NUR ---
RN- NOTES LISINOPRIL HELD DUE TO PATIENT REFUSAL OF BLOOD PRESSURE CHECK, EDUCATION AND ENCOURAGEMENT X3 GIVEN, PATIENT CONTINUES TO REFUSE.
[2023-03-29] MEDS: INSULIN REGULAR, HUMAN 100 UNIT/ML 3 ML VIAL SQ PRN ×3 (08:33→17:00)
[2023-03-29 16:00] VITALS: BP 100/52
--- NOTE | 2023-03-29 18:38 | NUR ---
RN- CLOSING NOTES PATIENT AWAKE, RESTING IN BED, BREATHING EVEN AND NON LABORED WITH NO S/S OF DISTRESS. PATIENT IS COOPERATIVE, CALM, DEPRESSED, ANXIOUS, DISORIENTED, AND ISOLATIVE. ENCOURAGED PATIENT TO LEAVE ROOM AND SOCIALIZE WITH STAFF, PATIENT REFUSED. PATIENT IS MEDICATION COMPLIANT. DENIES SI/HI AT THIS TIME. WILL CONTINUE TO MONITOR Q 15 MINUTES FOR SAFETY AND BEHAVIOR.
--- NOTE | 2023-03-29 20:36 | NUR ---
MANAGER OF WAREHOUSE NOTE: RECEIVED PATIENT RESTING IN BED ASLEEP,EASY TO AROUSE,A/OX3 ,ABLE TO MAKE NEEDS KNOWN.BREATHING NON-LABORED WITH EQUAL RISE AND FALL OF THE CHEST.PATIENT IS DISPLAYING NO S/S OF APPARENT DISTRESS. PT. BEHAVIOR COOPERTIVE ,BUT EASILY AGITATED, NEEDS FREQUENTLY REDIRECTIONS . MED COMPLIANT AT THIS SHIFT, SAFETY PRECAUTIONS MAINTAINED, ALL NEEDS ATTENDED AND ANTICIPATED, WILL CONTINUE TO MONITOR FOR SAFETY AND BEHAVIOR.
[2023-03-29] MEDS: ATORVASTATIN 40 MG TABLET PO SCH (21:52)
[2023-03-29] MEDS: INSULIN GLARGINE, 100 UNIT/ML CARTRIDGE SQ SCH (21:57)
[2023-03-30] MEDS: ACETAMINOPHEN 325 MG TABLET PO PRN (04:49)
--- NOTE | 2023-03-30 04:50 | NUR ---
NURSE NOTE: PT C/O PAIN. REQUESTED TYL AT THIS TIME. TYL ADMIN ORDERED. PT GOKUL WELL. WILL CONT TO MONITOR.
[2023-03-30] MEDS: BLOOD SUGAR DIAGNOSTIC 1 EACH STRIP IN SCH ×4 (07:39→21:55)
[2023-03-30 08:00] VITALS: BP 136/87
[2023-03-30] MEDS: BENZTROPINE MESYLATE (1 MG) 1 MG TABLET PO SCH ×3 (08:14→16:55)
[2023-03-30] MEDS: risperiDONE 1 MG TABLET PO SCH ×3 (08:14→16:55)
[2023-03-30] MEDS: CALCIUM CARBONATE 500 MG TAB.CHEW PO SCH (08:14)
[2023-03-30] MEDS: METFORMIN 500 MG TABLET PO SCH ×2 (08:14→17:06)
[2023-03-30] MEDS: GABAPENTIN 100 MG CAPSULE PO SCH ×2 (08:15→16:55)
[2023-03-30] MEDS: LITHIUM CARBONATE 150 MG CAPSULE PO SCH ×3 (08:15→16:54)
[2023-03-30] MEDS: DOCUSATE SODIUM 100 MG CAPSULE PO SCH ×2 (08:15→16:54)
[2023-03-30] MEDS: HALOPERIDOL 5 MG TABLET PO SCH ×4 (08:15→21:14)
[2023-03-30] MEDS: LISINOPRIL (10MG) 10 MG TABLET PO SCH (08:16)
[2023-03-30] MEDS: ASPIRIN EC 81 MG TABLET.DR PO SCH (08:23)
[2023-03-30] MEDS: ERGOCALCIFEROL (VITAMIN D 2) 50,000 UNIT CAPSULE PO SCH (08:23)
[2023-03-30] MEDS: INSULIN REGULAR, HUMAN 100 UNIT/ML 3 ML VIAL SQ PRN ×3 (08:40→17:53)
[2023-03-30 12:30] LABS: BASOPHILS # (AUTO) 0.1 K/uL (0.0-0.2); BASOPHILS % (AUTO) 0.7 % (0.0-2.0); EOSINOPHILS % (AUTO) 1.8 % (0.0-6.0); HEMATOCRIT 41 % (33-45); HEMOGLOBIN 13.7 g/dL (11.5-14.8); LYMPHOCYTES # (AUTO) 3.6 K/uL (0.8-4.8); LYMPHOCYTES % (AUTO) 30.9 % (20.0-44.0); MEAN CORPUSCULAR HGB CONC 33 g/dl (31.0-36.0); MEAN CORPUSCULAR VOLUME 87 fL (82-100); MONOCYTES # (AUTO) 0.6 K/uL (0.1-1.30); NEUTROPHILS # (AUTO) 7.1 K/uL (1.8-8.9); NEUTROPHILS % (AUTO) 61.6 % (43.0-81.0); PLATELET COUNT (AUTO) 397 K/uL (150-450); RED BLOOD CELL COUNT(AUTO) 4.73 MIL/uL (4.0-5.2); WHITE BLOOD COUNT (AUTO) 11.6 K/uL (4.3-11.0)
[2023-03-30 12:34] LABS: ALBUMIN 3.6 g/dL (3.4-5.0); BILIRUBIN,TOTAL 0.4 mg/dL (0.2-1.0); CALCIUM, SERUM 10.3 mg/dL (8.5-10.1); CREATININE 0.8 mg/dL (0.6-1.3); POTASSIUM 3.6 mmol/L (3.5-5.1); TOTAL PROTEIN, SERUM 7.6 g/dL (6.4-8.2)
[2023-03-30 13:43] LABS: BILIRUBIN,URINE NEGATIVE (NEGATIVE); COLOR,URINE YELLOW (YELLOW); LEUKOCYTE ESTERASE ,URINE 2+ (NEGATIVE); NITRITE, URINE NEGATIVE (NEGATIVE); PROTEIN,URINE NEGATIVE (NEGATIVE); UGLUCOSE NEGATIVE (NEGATIVE); UROBILINOGEN,URINE 0.2 EU/dL (0.2)
[2023-03-30 13:44] LABS: BACTERIA,URINE Rare /HPF (None Seen); RBC,URINE 0-2 /HPF (0-2); SQUAMOUS EPITHELIAL CELL,UR Rare /HPF (None Seen)
[2023-03-30 16:00] VITALS: BP 135/69
--- NOTE | 2023-03-30 20:19 | NUR ---
INTELLECTUAL PROPERTY LEGAL ASSISTANT NOTE: RECEIVED PATIENT RESTING IN BED ASLEEP,EASY TO AROUSE,A/OX3 ,ABLE TO MAKE NEEDS KNOWN.BREATHING NON-LABORED WITH EQUAL RISE AND FALL OF THE CHEST.PATIENT IS DISPLAYING NO S/S OF APPARENT DISTRESS. PT. BEHAVIOR COOPERATIVE ,BUT EASILY AGITATED, NEEDS FREQUENTLY REDIRECTIONS . MED COMPLIANT AT THIS SHIFT, SAFETY PRECAUTIONS MAINTAINED, ALL NEEDS ATTENDED AND ANTICIPATED, WILL CONTINUE TO MONITOR FOR SAFETY AND BEHAVIOR.
[2023-03-30 20:46] VITALS: BP 138/70
[2023-03-30] MEDS: ATORVASTATIN 40 MG TABLET PO SCH (21:15)
[2023-03-30] MEDS: INSULIN GLARGINE, 100 UNIT/ML CARTRIDGE SQ SCH (21:53)
[2023-03-30] MEDS: *INSULIN REGULAR(HUMULIN R)HUM 100 UNIT/ML VIAL SQ PRN (21:59)
[2023-03-31] MEDS: BLOOD SUGAR DIAGNOSTIC 1 EACH STRIP IN SCH ×4 (07:42→22:00)
[2023-03-31 08:00] VITALS: BP 140/83
[2023-03-31] MEDS: BENZTROPINE MESYLATE (1 MG) 1 MG TABLET PO SCH ×3 (08:27→17:08)
[2023-03-31] MEDS: HALOPERIDOL 5 MG TABLET PO SCH ×4 (08:27→21:13)
[2023-03-31] MEDS: GABAPENTIN 100 MG CAPSULE PO SCH ×2 (08:28→17:08)
[2023-03-31] MEDS: CALCIUM CARBONATE 500 MG TAB.CHEW PO SCH (08:28)
[2023-03-31] MEDS: METFORMIN 500 MG TABLET PO SCH ×2 (08:28→17:08)
[2023-03-31] MEDS: risperiDONE 1 MG TABLET PO SCH ×3 (08:28→17:10)
[2023-03-31] MEDS: DOCUSATE SODIUM 100 MG CAPSULE PO SCH ×2 (08:28→17:08)
[2023-03-31] MEDS: LITHIUM CARBONATE 150 MG CAPSULE PO SCH ×3 (08:28→17:08)
[2023-03-31] MEDS: ASPIRIN EC 81 MG TABLET.DR PO SCH (08:28)
[2023-03-31] MEDS: LISINOPRIL (10MG) 10 MG TABLET PO SCH (08:29)
[2023-03-31] MEDS: INSULIN REGULAR, HUMAN 100 UNIT/ML 3 ML VIAL SQ PRN ×3 (08:32→17:36)
[2023-03-31] MEDS: MAG HYDROX/AL HYDROX/SIMETH 30 ML UDC PO PRN (08:41)
--- NOTE | 2023-03-31 08:41 | NUR ---
RN-NOTES PATIENT REQUESTING MAALOX FOR INDIGESTION.MAALOX 30MLGIVEN PRN ORDER.
--- NOTE | 2023-03-31 10:39 | NUR ---
RN-NOTES RECEIVED PATIENT AROUND 0700 AM SLEEPING WITH BREATHING EVEN AND NON LABORED EASILY AROUSED,GUARDED A/OX3.PATIENT IS COOPERATIVE WITH STAFF, ABLE TO MAKE NEEDS KNOWN TO THE STAFF. PATIENT ABLE TO AMBULATE IN THE UNIT WITH STEADY GAIT. ALL NEEDS ATTENDED AND ANTICIPATED. WILL CONT.MONITORING FOR SAFETY AND BEHAVIOR
[2023-03-31 16:00] VITALS: BP 105/56
--- NOTE | 2023-03-31 19:58 | NUR ---
NURSE SUBSTANCE ABUSE NOTE: RECEIVED PATIENT RESTING IN BED ASLEEP,EASY TO AROUSE,A/OX3 ,ABLE TO MAKE NEEDS KNOWN.BREATHING NON-LABORED WITH EQUAL RISE AND FALL OF THE CHEST.PATIENT IS DISPLAYING NO S/S OF APPARENT DISTRESS. PT. BEHAVIOR COOPERATIVE ,BUT EASILY AGITATED, NEEDS FREQUENTLY REDIRECTIONS . MED COMPLIANT AT THIS SHIFT, SAFETY PRECAUTIONS MAINTAINED, ALL NEEDS ATTENDED AND ANTICIPATED, WILL CONTINUE TO MONITOR FOR SAFETY AND BEHAVIOR.
[2023-03-31 20:57] VITALS: BP 108/54
[2023-03-31] MEDS: ATORVASTATIN 40 MG TABLET PO SCH (21:13)
[2023-03-31] MEDS: *INSULIN REGULAR(HUMULIN R)HUM 100 UNIT/ML VIAL SQ PRN (21:44)
[2023-03-31] MEDS: INSULIN GLARGINE, 100 UNIT/ML CARTRIDGE SQ SCH (21:46)
--- NOTE | 2023-03-31 21:59 | NUR ---
NOTE; PATIENT REFUSED REGULAR INSULIN SHOT.BLOOD SUGAR IS 134
[2023-04-01 07:04] LABS: BASOPHILS % (AUTO) 0.4 % (0.0-2.0); EOSINOPHILS % (AUTO) 2.8 % (0.0-6.0); HEMATOCRIT 38 % (33-45); HEMOGLOBIN 12.7 g/dL (11.5-14.8); LYMPHOCYTES # (AUTO) 2.9 K/uL (0.8-4.8); MEAN CORPUSCULAR HGB CONC 34 g/dl (31.0-36.0); MEAN CORPUSCULAR VOLUME 88 fL (82-100); MONOCYTES # (AUTO) 0.6 K/uL (0.1-1.30); MONOCYTES % (AUTO) 6.1 % (2.0-12.0); NEUTROPHILS # (AUTO) 6.1 K/uL (1.8-8.9); NEUTROPHILS % (AUTO) 61.7 % (43.0-81.0); PLATELET COUNT (AUTO) 336 K/uL (150-450); RED BLOOD CELL COUNT(AUTO) 4.31 MIL/uL (4.0-5.2); WHITE BLOOD COUNT (AUTO) 9.9 K/uL (4.3-11.0)
[2023-04-01] MEDS: BLOOD SUGAR DIAGNOSTIC 1 EACH STRIP IN SCH ×4 (07:43→21:50)
[2023-04-01 07:48] LABS: CALCIUM, SERUM 9.8 mg/dL (8.5-10.1); CREATININE 0.6 mg/dL (0.6-1.3); POTASSIUM 4.2 mmol/L (3.5-5.1)
[2023-04-01 08:00] VITALS: BP 103/62
[2023-04-01] MEDS: METFORMIN 500 MG TABLET PO SCH ×2 (08:52→17:24)
[2023-04-01] MEDS: LITHIUM CARBONATE 150 MG CAPSULE PO SCH ×3 (08:52→17:24)
[2023-04-01] MEDS: HALOPERIDOL 5 MG TABLET PO SCH ×4 (08:52→21:24)
[2023-04-01] MEDS: GABAPENTIN 100 MG CAPSULE PO SCH ×2 (08:52→17:24)
[2023-04-01] MEDS: CALCIUM CARBONATE 500 MG TAB.CHEW PO SCH (08:53)
[2023-04-01] MEDS: LISINOPRIL (10MG) 10 MG TABLET PO SCH (08:53)
[2023-04-01] MEDS: BENZTROPINE MESYLATE (1 MG) 1 MG TABLET PO SCH ×3 (08:53→17:24)
[2023-04-01] MEDS: risperiDONE 1 MG TABLET PO SCH ×3 (08:53→17:24)
[2023-04-01] MEDS: ASPIRIN EC 81 MG TABLET.DR PO SCH (08:53)
[2023-04-01] MEDS: INSULIN REGULAR, HUMAN 100 UNIT/ML 3 ML VIAL SQ PRN ×3 (08:56→21:52)
[2023-04-01] MEDS: DOCUSATE SODIUM 100 MG CAPSULE PO SCH ×2 (09:00→17:00)
[2023-04-01 16:00] VITALS: BP 127/69
[2023-04-01 20:00] VITALS: BP 131/61
[2023-04-01] MEDS: ATORVASTATIN 40 MG TABLET PO SCH (21:25)
[2023-04-01] MEDS: INSULIN GLARGINE, 100 UNIT/ML CARTRIDGE SQ SCH (21:53)
--- NOTE | 2023-04-02 07:45 | NUR ---
RN NOTE PATIENT AWAKE ON BED,A/OX2 ,ABLE TO MAKE NEEDS KNOWN.BREATHING EVEN AND NON-LABORED. PATIENT IS DISPLAYING NO S/S OF APPARENT DISTRESS. PT. BEHAVIOR COOPERATIVE. SAFETY PRECAUTIONS MAINTAINED, ALL NEEDS ATTENDED AND ANTICIPATED, WILL CONTINUE TO MONITOR FOR SAFETY AND BEHAVIOR.
[2023-04-02] MEDS: BLOOD SUGAR DIAGNOSTIC 1 EACH STRIP IN SCH ×4 (08:00→21:28)
[2023-04-02] MEDS: METFORMIN 500 MG TABLET PO SCH ×2 (08:04→17:36)
[2023-04-02] MEDS: INSULIN REGULAR, HUMAN 100 UNIT/ML 3 ML VIAL SQ PRN ×2 (08:11→12:58)
[2023-04-02] MEDS: LISINOPRIL (10MG) 10 MG TABLET PO SCH (09:00)
[2023-04-02] MEDS: ASPIRIN EC 81 MG TABLET.DR PO SCH (09:09)
[2023-04-02] MEDS: BENZTROPINE MESYLATE (1 MG) 1 MG TABLET PO SCH ×3 (09:09→16:11)
[2023-04-02] MEDS: risperiDONE 1 MG TABLET PO SCH ×3 (09:10→16:10)
[2023-04-02] MEDS: CALCIUM CARBONATE 500 MG TAB.CHEW PO SCH (09:10)
[2023-04-02] MEDS: GABAPENTIN 100 MG CAPSULE PO SCH ×2 (09:10→16:10)
[2023-04-02] MEDS: DOCUSATE SODIUM 100 MG CAPSULE PO SCH ×2 (09:11→16:10)
[2023-04-02] MEDS: LITHIUM CARBONATE 150 MG CAPSULE PO SCH ×3 (09:11→16:11)
[2023-04-02] MEDS: HALOPERIDOL 5 MG TABLET PO SCH ×4 (09:11→21:28)
--- NOTE | 2023-04-02 09:45 | NUR ---
RN NOTE PATIENT REFUSED TO HAVE HER BLOOD PRESSURE CHECK. COLTEN (WATER AND SEWER SYSTEMS SUPERINTENDENT) TRIED TO CONVICE THE PATIENT 3X BUT SHE REFUSED AGAIN. I TRIED TO TALK TO THE PATIENT BUT SHE'S STILL REFUSING. SHE ALSO REFUSED TO TAKE THE BLOOD PRESSURE MEDICINE, EXPLAINED THE IMPORTANCE OF BP MEDICINE BUT STILL SHE REFUSED. CHARGE NURSE AWARE. WILL CONTINUE TO MONITOR PATIENT.
--- NOTE | 2023-04-02 12:23 | NUR ---
RN NOTE ACCIDENTALLY TOOK 2 TABLETS OF HALOPERIDOL, ORDER IS 1 TAB, 5MG. RETURNED 1 TABLET IN THE OMNICELL.
[2023-04-02] MEDS: CEPHALEXIN MONOHYDRATE 250 MG CAPSULE PO SCH ×2 (13:01→16:25)
[2023-04-02 16:00] VITALS: BP 119/61
--- NOTE | 2023-04-02 16:23 | NUR ---
RN NOTE ACCIDENTALLY TOOK 2 TABLETS OF HALOPERIDOL, ORDER IS 1 TAB, 5MG. RETURNED 1 TABLET IN THE OMNICELL.
--- NOTE | 2023-04-02 18:09 | NUR ---
RN CLOSING NOTE PATIENT AWAKE, WALKING ON THE HALLWAY, BREATHING EVEN AND NON LABORED WITH NO S/S OF DISTRESS. PATIENT IS COOPERATIVE AND CONFUSED SOMETIMES. PATIENT IS MEDICATION COMPLIANT. DENIES SI/HI. WILL ENDORSE [facility] SHIFT NURSE FOR AARON.
--- NOTE | 2023-04-02 19:30 | NUR ---
GPS RN OPENING NOTES RECEIVED PATIENT RESTING IN BED, BREATHING EVEN AND NON LABORED WITH NO S/S OF DISTRESS. PATIENT IS COOPERATIVE, CALM, DEPRESSED, ANXIOUS, DISORIENTED, AND ISOLATIVE. SAFETY MEASURES IN PLACED, FREQUENT RE-ORIENTATION NEEDED, DENIES SI/HI AT THIS TIME. WILL CONTINUE TO MONITOR Q15 MINUTES FOR SAFETY AND BEHAVIORAL CHANGES.
[2023-04-02] MEDS: ATORVASTATIN 40 MG TABLET PO SCH (21:28)
[2023-04-02] MEDS: INSULIN GLARGINE, 100 UNIT/ML CARTRIDGE SQ SCH (21:48)
[2023-04-02] MEDS: *INSULIN REGULAR(HUMULIN R)HUM 100 UNIT/ML VIAL SQ PRN (21:49)
[2023-04-03] MEDS: ACETAMINOPHEN 325 MG TABLET PO PRN (04:19)
--- NOTE | 2023-04-03 05:58 | NUR ---
RN NOTE COVID SWAB TAKEN AND SENT TO LAB
--- NOTE | 2023-04-03 07:12 | NUR ---
RN NOTE REPORT GIVEN TO SAMANTA BARON FOR CONTINUITY OF CARE.
[2023-04-03] MEDS: BLOOD SUGAR DIAGNOSTIC 1 EACH STRIP IN SCH ×2 (08:00→11:42)
[2023-04-03] MEDS: INSULIN REGULAR, HUMAN 100 UNIT/ML 3 ML VIAL SQ PRN ×2 (08:02→11:43)
--- NOTE | 2023-04-03 08:08 | NUR ---
SW Discharge Note: Patient will be discharged to retirement facility [facility] [address] [facility] [address], [place] [address]; ). Please arrange transportation at 1PM. Portfolio Director spoke with Diego financial economist at [facility]; ([phone]), who stated patient will be accepted today. Patients daughter Maggie ([phone]) is aware and agreeable of dc. Patient is alert and oriented x3 and is unable to plan for self-care. Patient denies any suicidal or homicidal ideations. Patient is aware and agreeable with discharge plans. Patient will continue to follow-up with (psychiatrist) Dr. Fritz [address] [facility] [address], [place] [address]; ([phone]) and (per diem rn) Dr. Palomino [address] [facility] [address], [place] [address]; ([phone]). Patient presents with euthymic and congruent mood.
[2023-04-03] MEDS: METFORMIN 500 MG TABLET PO SCH (08:13)
[2023-04-03] MEDS: BENZTROPINE MESYLATE (1 MG) 1 MG TABLET PO SCH ×2 (08:56→12:48)
[2023-04-03] MEDS: ASPIRIN EC 81 MG TABLET.DR PO SCH (08:56)
[2023-04-03] MEDS: CALCIUM CARBONATE 500 MG TAB.CHEW PO SCH (08:56)
[2023-04-03] MEDS: GABAPENTIN 100 MG CAPSULE PO SCH (08:56)
[2023-04-03] MEDS: CEPHALEXIN MONOHYDRATE 250 MG CAPSULE PO SCH ×2 (08:56→12:48)
[2023-04-03] MEDS: DOCUSATE SODIUM 100 MG CAPSULE PO SCH (08:56)
[2023-04-03] MEDS: risperiDONE 1 MG TABLET PO SCH ×2 (08:57→12:48)
[2023-04-03] MEDS: LITHIUM CARBONATE 150 MG CAPSULE PO SCH ×2 (08:57→12:48)
[2023-04-03] MEDS: HALOPERIDOL 5 MG TABLET PO SCH ×2 (08:57→12:47)
[2023-04-03] MEDS: LISINOPRIL (10MG) 10 MG TABLET PO SCH (08:58)
--- NOTE | 2023-04-03 13:20 | NUR ---
DISCHARGE NOTE 67 Y/O FEMALE DISCHARGED TO [facility] IN STABLE CONDITION. COMPLIANT WITH MEDICATIONS, COOPERATIVE WITH TX PLANS. PT DENIES SI/HI AND INSTRUCTED TO GO TO THE CLOSEST ER IF DEVELOPING SI/HI. BEHAVIOR IMPROVED, PSYCHIATRIC TX PLANS MET, MEDICAL TX PLANS DEFERRED FOR CONTINUAL MONITORING. EDUCATED PT ABOUT AFTER CARE PLAN AND COPY PROVIDED. RETURNED PERSONAL BELONGINGS TO PT. MEDICATIONS RECONCILED WITH DR. RICHARDSON AND DR BEARD REPORT GIVEN TO JEANETTE PARADA AT [facility] FOR CONTINUITY OF CARE PT SIGNED DISCHARGE PAPERWORK PT SKIN INTACT NO PHOTOS NEEDED. PT LEFT THE UNIT AT 1320 VIA AMBULANCE.
== END 2023-04-03 13:20 | DRG 885 ==
LOC: ER 23:15 → GPS 03-15 02:23
PROVIDERS: ADMIT Psychiatry & Neurology Psychosomatic Medicine; ATTEND Nurse Practitioner Acute Care
DX: F25.0 Schizoaffective disorder, bipolar type (principal); E10.65 Type 1 diabetes mellitus with hyperglycemia; F29 Unspecified psychosis not due to a substance or known physiological condition; G20 Parkinson's disease; E78.5 Hyperlipidemia, unspecified; I10 Essential (primary) hypertension; Z79.4 Long term (current) use of insulin; Z79.84 Long term (current) use of oral hypoglycemic drugs; Z79.899 Other long term (current) drug therapy; J44.9 Chronic obstructive pulmonary disease, unspecified; Z91.148 Patient's other noncompliance with medication regimen for other reason; Z20.822 Contact with and (suspected) exposure to COVID-19; Z73.6 Limitation of activities due to disability
CPT/HCPCS: 36415; 71045-TC; 80048-TC; 80053-TC; 80061-TC; 80076-TC; 81001; 82962-TC; 85025-TC; 87086-TC; C9803; G0480; J1815; J7030

== ENCOUNTER 2023-06-28 08:58 | Inpatient (IN) | payer MEDICARE, OTHER ==
[~2023-06-28] VITALS: Ht 157.5 cm; Wt 78.5 kg
[~2023-06-28 08:58] MED LIST changes: -BENZ1TAB7 PO; -CALC-343 PO; -DIPH50CA4 IM; -DIVA-78 PO; -HALO10TA13 PO; -HALO5TAB8 PO; -IBUP-1953 PO; +INSU100V11 SQ; -INSU100V3 SQ; +LEVO50TA8 PO; +POLY15DR40 EACHEYE
[2023-06-28 09:25] LABS: BASOPHILS % (AUTO) 0.5 % (0.0-2.0); EOSINOPHILS # (AUTO) 0.1 K/uL (0.0-0.7); EOSINOPHILS % (AUTO) 1.9 % (0.0-6.0); HEMATOCRIT 41 % (33-45); HEMOGLOBIN 13.7 g/dL (11.5-14.8); LYMPHOCYTES # (AUTO) 2.2 K/uL (0.8-4.8); LYMPHOCYTES % (AUTO) 29.9 % (20.0-44.0); MEAN CORPUSCULAR HEMOGLOBIN 30 PG (26.0-33.0); MEAN CORPUSCULAR HGB CONC 33 g/dl (31.0-36.0); MEAN CORPUSCULAR VOLUME 89 fL (82-100); MONOCYTES # (AUTO) 0.5 K/uL (0.1-1.30); MONOCYTES % (AUTO) 7.3 % (2.0-12.0); NEUTROPHILS # (AUTO) 4.5 K/uL (1.8-8.9); NEUTROPHILS % (AUTO) 60.4 % (43.0-81.0); PLATELET COUNT (AUTO) 287 K/uL (150-450); RED BLOOD CELL COUNT(AUTO) 4.64 MIL/uL (4.0-5.2); WHITE BLOOD COUNT (AUTO) 7.5 K/uL (4.3-11.0)
[2023-06-28] MEDS ORDERED: HALO10TA13 PO (09:29)
[2023-06-28] MEDS ORDERED: LITH300T3 PO (09:29)
[2023-06-28] MEDS ORDERED: BENZ1TAB7 PO (09:29)
[2023-06-28] MEDS ORDERED: HALO5TAB PO (09:29)
[2023-06-28] MEDS ORDERED: NA P133E RC (09:30)
[2023-06-28] MEDS ORDERED: INSU100V7 SQ (09:30)
[2023-06-28] MEDS ORDERED: BISA10SU11 RC (09:30)
[2023-06-28] MEDS ORDERED: ACET-868 PO (09:30)
[2023-06-28] MEDS ORDERED: MAGN400O6 PO (09:30)
[2023-06-28 09:47] LABS: ALANINE AMINOTRANSFERASE 28 U/L (12-78); ALCOHOL, BLOOD < 3 mg/dL (0-10); ALKALINE PHOSPHATASE 252 U/L (46-116); ASPARTATE AMINOTRANSFERASE 9 U/L (15-37); BILIRUBIN,DIRECT 0.1 mg/dL (0.0-0.2); BILIRUBIN,TOTAL 0.3 mg/dL (0.2-1.0); CALCIUM, SERUM 9.1 mg/dL (8.5-10.1); CREATININE 0.8 mg/dL (0.6-1.3); SALICYLATE 7.5 mg/dL (2.8-20.0); TOTAL PROTEIN, SERUM 6.8 g/dL (6.4-8.2); UREA NITROGEN, BLOOD 11 mg/dL (7-18)
[2023-06-28 10:01] LABS: GLUCOSE 483 mg/dL (74-106)
[2023-06-28] MEDS ORDERED: INSULIN REGULAR, HUMAN 100 UNIT/ML 10 ML VIAL SQ ONE (10:30)
[2023-06-28] MEDS ORDERED: IV NS 0.9% 1,000 ML IV ONE (10:30)
[2023-06-28] MEDS ORDERED: INSULIN REGULAR, HUMAN 100 UNIT/ML 10 ML VIAL ONE (10:39)
[2023-06-28 10:40] LABS: CARBON DIOXIDE 20 mmol/L (21-32); CHLORIDE 97 mmol/L (98-107); POTASSIUM 3.6 mmol/L (3.5-5.1); SODIUM SERUM 130 mmol/L (136-145)
[2023-06-28 10:57] LABS: ACETAMINOPHEN <10 ug/ml (10-30)
[2023-06-28 11:01] LABS: APPEARANCE,URINE CLEAR (CLEAR); BILIRUBIN,URINE NEGATIVE (NEGATIVE); BLOOD, URINE NEGATIVE Ery/uL (NEGATIVE); COLOR,URINE YELLOW (YELLOW); KETONES,URINE NEGATIVE (NEGATIVE); LEUKOCYTE ESTERASE ,URINE NEGATIVE (NEGATIVE); NITRITE, URINE NEGATIVE (NEGATIVE); PH,URINE 5.5 (5.0-8.0); PROTEIN,URINE NEGATIVE (NEGATIVE); UGLUCOSE 3+ mg/dL (NEGATIVE); UROBILINOGEN,URINE 0.2 EU/dL (0.2)
[2023-06-28 11:02] LABS: ADD URINE CULTURE NO; BACTERIA,URINE None seen /HPF (None Seen); RBC,URINE 0-2 /HPF (0-2); SQUAMOUS EPITHELIAL CELL,UR Rare /HPF (None Seen); WBC,URINE 0-2 /HPF (0-3)
[2023-06-28 11:49] LABS: AMPHETAMINE, URINE NEGATIVE (NEGATIVE); BARBITURATE, URINE NEGATIVE (NEGATIVE); BENZODIAZEPINE, URINE NEGATIVE (NEGATIVE); CANNABINOID, URINE NEGATIVE (NEGATIVE); COCCAINE, URINE NEGATIVE (NEGATIVE); OPIATE, URINE NEGATIVE (NEGATIVE); PHENCYCLIDINE SCREEN,URINE NEGATIVE (NEGATIVE)
[2023-06-28] MEDS ORDERED: DEXTROSE 50%-WATER 50 ML DISP.SYRIN IV PRN ×2 (12:00→17:30)
[2023-06-28] MEDS ORDERED: BLOOD SUGAR DIAGNOSTIC 1 EACH STRIP IN SCH (12:00)
[2023-06-28] MEDS ORDERED: ONDANSETRON HCL/PF 4 MG/2 ML VIAL IVP PRN (12:00)
[2023-06-28] MEDS ORDERED: MORPHINE SULFATE INJ 2 MG/ML DISP.SYRIN IV PRN (12:00)
[2023-06-28] MEDS ORDERED: INSULIN REGULAR, HUMAN 100 UNIT/ML 3 ML VIAL SQ PRN (12:00)
[2023-06-28] MEDS ORDERED: IV NS 0.9% 1,000 ML IV PRN (12:00)
[2023-06-28] MEDS ORDERED: hydrALAZINE HCL IV 20 MG VIAL IV PRN (12:00)
[2023-06-28 12:49] LABS: CALCIUM, SERUM 9.1 mg/dL (8.5-10.1); CARBON DIOXIDE 27 mmol/L (21-32); CHLORIDE 102 mmol/L (98-107); CREATININE 0.6 mg/dL (0.6-1.3); GLUCOSE 255 mg/dL (74-106); POTASSIUM 3.5 mmol/L (3.5-5.1); SODIUM SERUM 136 mmol/L (136-145); UREA NITROGEN, BLOOD 10 mg/dL (7-18)
[2023-06-28] MEDS ORDERED: BENZTROPINE MESYLATE (1 MG) 1 MG TABLET PO SCH (13:00)
[2023-06-28 13:07] LABS: ACETONE, SERUM NEGATIVE (NEGATIVE)
[2023-06-28] MEDS ORDERED: HALOPERIDOL 5 MG TABLET PO SCH (17:00)
[2023-06-28] MEDS ORDERED: LITHIUM CARBONATE (300 MG CAP) 300 MG CAPSULE PO SCH (17:00)
[2023-06-28] MEDS ORDERED: INSULIN GLARGINE, 100 UNIT/ML CARTRIDGE SQ SCH (17:00)
[2023-06-28 17:30] VITALS: BP 148/100; TEMP 98.4; O2SAT 98
[2023-06-28] MEDS: INSULIN REGULAR, HUMAN 100 UNIT/ML 3 ML VIAL SQ PRN (17:57)
[2023-06-28] MEDS ORDERED: BLOOD SUGAR DIAGNOSTIC 1 EACH STRIP IN ONE (18:00)
[2023-06-28] MEDS ORDERED: MAGNESIUM HYDROXIDE 30 ML UDC PO PRN (18:00)
[2023-06-28] MEDS ORDERED: ACETAMINOPHEN 325 MG TABLET PO PRN (18:00)
[2023-06-28] MEDS ORDERED: MAG HYDROX/AL HYDROX/SIMETH 30 ML UDC PO PRN (18:00)
[2023-06-28] MEDS: BLOOD SUGAR DIAGNOSTIC 1 EACH STRIP IN SCH ×2 (18:04→21:48)
[2023-06-28] MEDS: GABAPENTIN 300 MG CAPSULE PO SCH (18:09)
[2023-06-28] MEDS: ACETAMINOPHEN 325 MG TABLET PO PRN (20:10)
[2023-06-28] MEDS ORDERED: ENOXAPARIN SODIUM 40 MG/0.4 ML DISP.SYRIN SQ SCH (21:00)
[2023-06-28 21:01] VITALS: BP 127/90; TEMP 98.7; O2SAT 96
[2023-06-28] MEDS: ATORVASTATIN 40 MG TABLET PO SCH (21:31)
[2023-06-28] MEDS: INSULIN GLARGINE, 100 UNIT/ML CARTRIDGE SQ SCH (21:51)
[2023-06-28] MEDS: *INSULIN REGULAR(HUMULIN R)HUM 100 UNIT/ML VIAL SQ PRN (21:53)
[2023-06-28] MEDS: LORAZEPAM 0.5 MG TABLET PO PRN (22:52)
[2023-06-29] MEDS: BLOOD SUGAR DIAGNOSTIC 1 EACH STRIP IN SCH ×4 (07:59→21:19)
[2023-06-29 08:00] VITALS: BP 169/93; TEMP 98.1; O2SAT 95
[2023-06-29] MEDS: GABAPENTIN 300 MG CAPSULE PO SCH ×2 (08:10→17:10)
[2023-06-29] MEDS: DOCUSATE SODIUM 100 MG CAPSULE PO SCH (08:10)
[2023-06-29] MEDS: ASPIRIN EC 81 MG TABLET.DR PO SCH (08:10)
[2023-06-29] MEDS: CHOLECALCIFEROL 1,000 UNIT TABLET (VIT D3) PO SCH (08:10)
[2023-06-29] MEDS: LISINOPRIL (10MG) 10 MG TABLET PO SCH (08:11)
[2023-06-29] MEDS: INSULIN GLARGINE, 100 UNIT/ML CARTRIDGE SQ SCH ×2 (08:14→17:27)
[2023-06-29] MEDS: INSULIN REGULAR, HUMAN 100 UNIT/ML 3 ML VIAL SQ PRN ×3 (08:17→17:13)
[2023-06-29] MEDS ORDERED: INSULIN GLARGINE, 100 UNIT/ML CARTRIDGE SQ STA (12:12)
[2023-06-29 16:00] VITALS: BP 180/84; TEMP 98.6; O2SAT 98
[2023-06-29] MEDS: ACETAMINOPHEN 325 MG TABLET PO PRN (18:09)
[2023-06-29] MEDS: hydrALAZINE HCL 25 MG TABLET PO SCH (19:07)
[2023-06-29 20:00] VITALS: BP 137/80; TEMP 98.7; O2SAT 95
[2023-06-29] MEDS: ATORVASTATIN 40 MG TABLET PO SCH (21:04)
[2023-06-29] MEDS: HALOPERIDOL 5 MG TABLET PO SCH (21:04)
[2023-06-29] MEDS: *INSULIN REGULAR(HUMULIN R)HUM 100 UNIT/ML VIAL SQ PRN (21:22)
[2023-06-30] MEDS: BLOOD SUGAR DIAGNOSTIC 1 EACH STRIP IN SCH ×4 (07:31→23:08)
[2023-06-30 08:00] VITALS: BP 160/93; TEMP 97.6; O2SAT 98
[2023-06-30] MEDS: LITHIUM CARBONATE (300 MG CAP) 300 MG CAPSULE PO SCH ×2 (08:48→21:04)
[2023-06-30] MEDS: BENZTROPINE MESYLATE (1 MG) 1 MG TABLET PO SCH ×2 (08:49→16:16)
[2023-06-30] MEDS: HALOPERIDOL 5 MG TABLET PO SCH ×3 (08:49→22:12)
[2023-06-30] MEDS: ASPIRIN EC 81 MG TABLET.DR PO SCH (08:49)
[2023-06-30] MEDS: GABAPENTIN 300 MG CAPSULE PO SCH ×2 (08:49→16:16)
[2023-06-30] MEDS: CHOLECALCIFEROL 1,000 UNIT TABLET (VIT D3) PO SCH (08:49)
[2023-06-30] MEDS: DOCUSATE SODIUM 100 MG CAPSULE PO SCH (08:52)
[2023-06-30] MEDS: hydrALAZINE HCL 25 MG TABLET PO SCH ×3 (08:52→16:17)
[2023-06-30] MEDS: LISINOPRIL (10MG) 10 MG TABLET PO SCH (08:53)
[2023-06-30] MEDS: INSULIN GLARGINE, 100 UNIT/ML CARTRIDGE SQ SCH ×2 (08:55→17:24)
[2023-06-30] MEDS: INSULIN REGULAR, HUMAN 100 UNIT/ML 3 ML VIAL SQ PRN ×3 (08:57→17:23)
[2023-06-30] MEDS: OFLOXACIN OTIC SOLN 5 ML BOTTLE EACH EAR SCH ×2 (08:59→21:04)
[2023-06-30] MEDS ORDERED: CIPROFLOXACIN HCL 0.3% 5 ML BOTTLE OT SCH (09:00)
[2023-06-30 15:22] LABS: CALCIUM, SERUM 9.6 mg/dL (8.5-10.1); CREATININE 0.9 mg/dL (0.6-1.3)
[2023-06-30 15:27] LABS: ALBUMIN 2.7 g/dL (3.4-5.0); BILIRUBIN,TOTAL 0.4 mg/dL (0.2-1.0); TOTAL PROTEIN, SERUM 6.2 g/dL (6.4-8.2)
[2023-06-30 16:00] VITALS: BP 127/63; TEMP 97.9; O2SAT 96
[2023-06-30] MEDS: ACETAMINOPHEN 325 MG TABLET PO PRN (16:16)
[2023-06-30 20:00] VITALS: BP 154/91; TEMP 97.5; O2SAT 97
[2023-06-30] MEDS: ATORVASTATIN 40 MG TABLET PO SCH (22:12)
[2023-06-30] MEDS: *INSULIN REGULAR(HUMULIN R)HUM 100 UNIT/ML VIAL SQ PRN (23:10)
[2023-07-01] MEDS: BLOOD SUGAR DIAGNOSTIC 1 EACH STRIP IN SCH ×4 (07:30→21:49)
[2023-07-01] MEDS: GABAPENTIN 300 MG CAPSULE PO SCH ×2 (09:21→16:31)
[2023-07-01] MEDS: ASPIRIN EC 81 MG TABLET.DR PO SCH (09:21)
[2023-07-01] MEDS: HALOPERIDOL 5 MG TABLET PO SCH ×3 (09:21→21:26)
[2023-07-01] MEDS: BENZTROPINE MESYLATE (1 MG) 1 MG TABLET PO SCH ×2 (09:21→16:32)
[2023-07-01] MEDS: DOCUSATE SODIUM 100 MG CAPSULE PO SCH (09:21)
[2023-07-01] MEDS: CHOLECALCIFEROL 1,000 UNIT TABLET (VIT D3) PO SCH (09:21)
[2023-07-01] MEDS: LITHIUM CARBONATE (300 MG CAP) 300 MG CAPSULE PO SCH ×2 (09:21→21:21)
[2023-07-01] MEDS: OFLOXACIN OTIC SOLN 5 ML BOTTLE EACH EAR SCH ×2 (09:24→21:21)
[2023-07-01] MEDS: LISINOPRIL (10MG) 10 MG TABLET PO SCH (09:24)
[2023-07-01] MEDS: hydrALAZINE HCL 25 MG TABLET PO SCH ×3 (09:24→16:31)
[2023-07-01] MEDS: INSULIN GLARGINE, 100 UNIT/ML CARTRIDGE SQ SCH ×2 (09:27→16:34)
[2023-07-01] MEDS: INSULIN REGULAR, HUMAN 100 UNIT/ML 3 ML VIAL SQ PRN ×3 (09:28→16:34)
[2023-07-01] MEDS: TEMAZEPAM 15 MG CAPSULE PO PRN (21:22)
[2023-07-01] MEDS: ATORVASTATIN 40 MG TABLET PO SCH (21:23)
[2023-07-01] MEDS: ACETAMINOPHEN 325 MG TABLET PO PRN (21:26)
[2023-07-01] MEDS: *INSULIN REGULAR(HUMULIN R)HUM 100 UNIT/ML VIAL SQ PRN (21:54)
[2023-07-01] MEDS: LORAZEPAM 0.5 MG TABLET PO PRN (22:57)
[2023-07-02 08:00] VITALS: BP 111/61; TEMP 98.4; O2SAT 100
[2023-07-02] MEDS: BLOOD SUGAR DIAGNOSTIC 1 EACH STRIP IN SCH ×4 (08:00→21:16)
[2023-07-02] MEDS: HALOPERIDOL 5 MG TABLET PO SCH ×3 (08:52→21:11)
[2023-07-02] MEDS: GABAPENTIN 300 MG CAPSULE PO SCH ×2 (08:52→17:42)
[2023-07-02] MEDS: DOCUSATE SODIUM 100 MG CAPSULE PO SCH (08:53)
[2023-07-02] MEDS: BENZTROPINE MESYLATE (1 MG) 1 MG TABLET PO SCH ×2 (08:53→17:42)
[2023-07-02] MEDS: CHOLECALCIFEROL 1,000 UNIT TABLET (VIT D3) PO SCH (08:53)
[2023-07-02] MEDS: LISINOPRIL (10MG) 10 MG TABLET PO SCH (08:53)
[2023-07-02] MEDS: hydrALAZINE HCL 25 MG TABLET PO SCH ×3 (08:54→17:42)
[2023-07-02] MEDS: LITHIUM CARBONATE (300 MG CAP) 300 MG CAPSULE PO SCH ×2 (08:54→20:12)
[2023-07-02] MEDS: ASPIRIN EC 81 MG TABLET.DR PO SCH (08:54)
[2023-07-02] MEDS: INSULIN REGULAR, HUMAN 100 UNIT/ML 3 ML VIAL SQ PRN ×3 (08:57→17:50)
[2023-07-02] MEDS: INSULIN GLARGINE, 100 UNIT/ML CARTRIDGE SQ SCH ×2 (09:00→17:42)
[2023-07-02] MEDS: OFLOXACIN OTIC SOLN 5 ML BOTTLE EACH EAR SCH ×2 (09:00→20:30)
[2023-07-02 16:00] VITALS: BP 109/68; TEMP 98.1; O2SAT 98
[2023-07-02 20:13] VITALS: BP 135/73; TEMP 98.4; O2SAT 98
[2023-07-02] MEDS: ACETAMINOPHEN 325 MG TABLET PO PRN ×2 (20:30→23:29)
[2023-07-02] MEDS: ATORVASTATIN 40 MG TABLET PO SCH (21:11)
[2023-07-02] MEDS: *INSULIN REGULAR(HUMULIN R)HUM 100 UNIT/ML VIAL SQ PRN (21:21)
[2023-07-02] MEDS: LORAZEPAM 0.5 MG TABLET PO PRN (22:42)
[2023-07-03 08:00] VITALS: BP 151/95; TEMP 97.9; O2SAT 97
[2023-07-03] MEDS: INSULIN REGULAR, HUMAN 100 UNIT/ML 3 ML VIAL SQ PRN ×3 (08:39→11:56)
[2023-07-03] MEDS: BLOOD SUGAR DIAGNOSTIC 1 EACH STRIP IN SCH ×4 (08:41→21:12)
[2023-07-03] MEDS: ASPIRIN EC 81 MG TABLET.DR PO SCH (08:55)
[2023-07-03] MEDS: HALOPERIDOL 5 MG TABLET PO SCH ×3 (08:56→21:04)
[2023-07-03] MEDS: DOCUSATE SODIUM 100 MG CAPSULE PO SCH (08:56)
[2023-07-03] MEDS: CHOLECALCIFEROL 1,000 UNIT TABLET (VIT D3) PO SCH (08:56)
[2023-07-03] MEDS: BENZTROPINE MESYLATE (1 MG) 1 MG TABLET PO SCH ×2 (08:57→16:45)
[2023-07-03] MEDS: GABAPENTIN 300 MG CAPSULE PO SCH ×2 (08:57→16:45)
[2023-07-03] MEDS: LISINOPRIL (10MG) 10 MG TABLET PO SCH (08:58)
[2023-07-03] MEDS: hydrALAZINE HCL 25 MG TABLET PO SCH ×3 (08:59→16:46)
[2023-07-03] MEDS: INSULIN GLARGINE, 100 UNIT/ML CARTRIDGE SQ SCH ×2 (09:15→17:20)
[2023-07-03] MEDS: LITHIUM CARBONATE (300 MG CAP) 300 MG CAPSULE PO SCH ×2 (09:25→20:12)
[2023-07-03] MEDS: OFLOXACIN OTIC SOLN 5 ML BOTTLE EACH EAR SCH ×2 (09:26→20:15)
[2023-07-03] MEDS: ACETAMINOPHEN 325 MG TABLET PO PRN ×2 (14:44→22:27)
[2023-07-03 16:00] VITALS: BP 151/80; TEMP 98.7; O2SAT 97
[2023-07-03 20:19] VITALS: BP 117/80; TEMP 98.8; O2SAT 97
[2023-07-03] MEDS: ATORVASTATIN 40 MG TABLET PO SCH (21:04)
[2023-07-03] MEDS: *INSULIN REGULAR(HUMULIN R)HUM 100 UNIT/ML VIAL SQ PRN (21:15)
[2023-07-03] MEDS: TEMAZEPAM 15 MG CAPSULE PO PRN ×2 (22:27)
[2023-07-04] MEDS: LORAZEPAM 0.5 MG TABLET PO PRN (01:07)
[2023-07-04] MEDS: ACETAMINOPHEN 325 MG TABLET PO PRN ×2 (04:24→11:21)
[2023-07-04] MEDS ORDERED: LORAZEPAM 1 MG TABLET PO PRN (07:00)
[2023-07-04] MEDS: BLOOD SUGAR DIAGNOSTIC 1 EACH STRIP IN SCH ×4 (07:31→22:04)
[2023-07-04 08:00] VITALS: BP 130/53; TEMP 98.1; O2SAT 98
[2023-07-04] MEDS: GABAPENTIN 300 MG CAPSULE PO SCH ×3 (08:21→17:46)
[2023-07-04] MEDS: LITHIUM CARBONATE (300 MG CAP) 300 MG CAPSULE PO SCH ×2 (08:21→21:55)
[2023-07-04] MEDS: ASPIRIN EC 81 MG TABLET.DR PO SCH (08:21)
[2023-07-04] MEDS: DOCUSATE SODIUM 100 MG CAPSULE PO SCH (08:22)
[2023-07-04] MEDS: CHOLECALCIFEROL 1,000 UNIT TABLET (VIT D3) PO SCH (08:22)
[2023-07-04] MEDS: BENZTROPINE MESYLATE (1 MG) 1 MG TABLET PO SCH ×2 (08:22→17:46)
[2023-07-04] MEDS: HALOPERIDOL 5 MG TABLET PO SCH ×3 (08:22→21:55)
[2023-07-04] MEDS: INSULIN GLARGINE, 100 UNIT/ML CARTRIDGE SQ SCH ×2 (08:23→17:48)
[2023-07-04] MEDS: INSULIN REGULAR, HUMAN 100 UNIT/ML 3 ML VIAL SQ PRN ×3 (08:24→17:48)
[2023-07-04] MEDS: LISINOPRIL (10MG) 10 MG TABLET PO SCH (08:41)
[2023-07-04] MEDS: OFLOXACIN OTIC SOLN 5 ML BOTTLE EACH EAR SCH ×2 (08:41→20:37)
[2023-07-04] MEDS: hydrALAZINE HCL 25 MG TABLET PO SCH ×3 (08:41→17:00)
[2023-07-04] MEDS: risperiDONE 1 MG TABLET PO SCH ×3 (11:21→17:45)
[2023-07-04 20:00] VITALS: BP 124/84; TEMP 98.6; O2SAT 98
[2023-07-04] MEDS: ATORVASTATIN 40 MG TABLET PO SCH (21:55)
[2023-07-04] MEDS: *INSULIN REGULAR(HUMULIN R)HUM 100 UNIT/ML VIAL SQ PRN (22:04)
[2023-07-05] MEDS: BLOOD SUGAR DIAGNOSTIC 1 EACH STRIP IN SCH ×4 (07:42→21:26)
[2023-07-05 08:00] VITALS: BP 150/85; TEMP 97.9; O2SAT 97
[2023-07-05] MEDS: LITHIUM CARBONATE (300 MG CAP) 300 MG CAPSULE PO SCH ×2 (09:01→20:32)
[2023-07-05] MEDS: ASPIRIN EC 81 MG TABLET.DR PO SCH (09:01)
[2023-07-05] MEDS: CHOLECALCIFEROL 1,000 UNIT TABLET (VIT D3) PO SCH (09:01)
[2023-07-05] MEDS: HALOPERIDOL 5 MG TABLET PO SCH ×3 (09:01→21:19)
[2023-07-05] MEDS: risperiDONE 1 MG TABLET PO SCH ×2 (09:01→16:10)
[2023-07-05] MEDS: GABAPENTIN 300 MG CAPSULE PO SCH ×3 (09:01→16:10)
[2023-07-05] MEDS: DOCUSATE SODIUM 100 MG CAPSULE PO SCH (09:01)
[2023-07-05] MEDS: BENZTROPINE MESYLATE (1 MG) 1 MG TABLET PO SCH ×2 (09:01→16:11)
[2023-07-05] MEDS: hydrALAZINE HCL 25 MG TABLET PO SCH ×3 (09:17→16:11)
[2023-07-05] MEDS: LISINOPRIL (10MG) 10 MG TABLET PO SCH (09:18)
[2023-07-05] MEDS: INSULIN REGULAR, HUMAN 100 UNIT/ML 3 ML VIAL SQ PRN ×3 (09:20→17:27)
[2023-07-05] MEDS: INSULIN GLARGINE, 100 UNIT/ML CARTRIDGE SQ SCH ×2 (09:21→17:26)
[2023-07-05] MEDS: OFLOXACIN OTIC SOLN 5 ML BOTTLE EACH EAR SCH ×2 (09:27→20:32)
[2023-07-05] MEDS ORDERED: risperiDONE 1 MG TABLET PO ONE (12:00)
[2023-07-05 16:00] VITALS: BP 103/59; TEMP 98.8; O2SAT 98
[2023-07-05 20:00] VITALS: BP 132/68; TEMP 97.4; O2SAT 95
[2023-07-05] MEDS: ATORVASTATIN 40 MG TABLET PO SCH (21:19)
[2023-07-05] MEDS: *INSULIN REGULAR(HUMULIN R)HUM 100 UNIT/ML VIAL SQ PRN (21:31)
[2023-07-06] MEDS: ACETAMINOPHEN 325 MG TABLET PO PRN (01:48)
[2023-07-06] MEDS: BLOOD SUGAR DIAGNOSTIC 1 EACH STRIP IN SCH ×4 (07:40→21:50)
[2023-07-06] MEDS: risperiDONE 1 MG TABLET PO SCH ×3 (08:31→19:57)
[2023-07-06] MEDS: BENZTROPINE MESYLATE (1 MG) 1 MG TABLET PO SCH ×2 (08:31→17:44)
[2023-07-06] MEDS: GABAPENTIN 300 MG CAPSULE PO SCH ×3 (08:31→17:44)
[2023-07-06] MEDS: ASPIRIN EC 81 MG TABLET.DR PO SCH (08:32)
[2023-07-06] MEDS: HALOPERIDOL 5 MG TABLET PO SCH ×3 (08:33→21:19)
[2023-07-06] MEDS: CHOLECALCIFEROL 1,000 UNIT TABLET (VIT D3) PO SCH (08:33)
[2023-07-06] MEDS: DOCUSATE SODIUM 100 MG CAPSULE PO SCH (08:33)
[2023-07-06] MEDS: LITHIUM CARBONATE (300 MG CAP) 300 MG CAPSULE PO SCH ×2 (08:39→21:18)
[2023-07-06] MEDS: OFLOXACIN OTIC SOLN 5 ML BOTTLE EACH EAR SCH ×2 (08:39→21:19)
[2023-07-06] MEDS: INSULIN REGULAR, HUMAN 100 UNIT/ML 3 ML VIAL SQ PRN ×3 (08:40→17:53)
[2023-07-06] MEDS: INSULIN GLARGINE, 100 UNIT/ML CARTRIDGE SQ SCH ×2 (08:51→17:46)
[2023-07-06] MEDS: LISINOPRIL (10MG) 10 MG TABLET PO SCH (09:00)
[2023-07-06] MEDS: hydrALAZINE HCL 25 MG TABLET PO SCH ×3 (09:00→17:44)
[2023-07-06] MEDS: INSULIN LISPRO/ASPART 100 UNIT/ML CARTRIDGE SQ SCH ×2 (12:00→17:48)
[2023-07-06 16:00] VITALS: BP 153/81; TEMP 97.8; O2SAT 96
[2023-07-06 20:00] VITALS: BP 130/68; TEMP 97.8; O2SAT 100
[2023-07-06] MEDS: ATORVASTATIN 40 MG TABLET PO SCH (21:18)
[2023-07-06] MEDS: *INSULIN REGULAR(HUMULIN R)HUM 100 UNIT/ML VIAL SQ PRN (21:54)
[2023-07-07] MEDS: BLOOD SUGAR DIAGNOSTIC 1 EACH STRIP IN SCH ×4 (07:23→21:11)
[2023-07-07 08:00] VITALS: BP 133/67; TEMP 97.9; O2SAT 98
[2023-07-07] MEDS: risperiDONE 1 MG TABLET PO SCH ×3 (08:25→16:26)
[2023-07-07] MEDS: GABAPENTIN 300 MG CAPSULE PO SCH ×3 (08:25→16:26)
[2023-07-07] MEDS: DOCUSATE SODIUM 100 MG CAPSULE PO SCH (08:25)
[2023-07-07] MEDS: BENZTROPINE MESYLATE (1 MG) 1 MG TABLET PO SCH ×2 (08:25→16:26)
[2023-07-07] MEDS: CHOLECALCIFEROL 1,000 UNIT TABLET (VIT D3) PO SCH (08:25)
[2023-07-07] MEDS: ASPIRIN EC 81 MG TABLET.DR PO SCH (08:26)
[2023-07-07] MEDS: HALOPERIDOL 5 MG TABLET PO SCH ×3 (08:26→21:03)
[2023-07-07] MEDS: hydrALAZINE HCL 25 MG TABLET PO SCH ×4 (08:26→16:32)
[2023-07-07] MEDS: LISINOPRIL (10MG) 10 MG TABLET PO SCH (08:27)
[2023-07-07] MEDS: LITHIUM CARBONATE (300 MG CAP) 300 MG CAPSULE PO SCH ×2 (08:42→20:23)
[2023-07-07] MEDS: INSULIN GLARGINE, 100 UNIT/ML CARTRIDGE SQ SCH ×2 (08:44→17:03)
[2023-07-07] MEDS: INSULIN REGULAR, HUMAN 100 UNIT/ML 3 ML VIAL SQ PRN ×3 (08:47→17:05)
[2023-07-07] MEDS: INSULIN LISPRO/ASPART 100 UNIT/ML CARTRIDGE SQ SCH ×3 (09:06→17:04)
[2023-07-07 16:00] VITALS: BP 116/62; TEMP 98; O2SAT 94
[2023-07-07 20:00] VITALS: BP 115/75; TEMP 97.6; O2SAT 97
[2023-07-07] MEDS: ATORVASTATIN 40 MG TABLET PO SCH (21:03)
[2023-07-07] MEDS: *INSULIN REGULAR(HUMULIN R)HUM 100 UNIT/ML VIAL SQ PRN (21:17)
[2023-07-07] MEDS: ACETAMINOPHEN 325 MG TABLET PO PRN (21:55)
[2023-07-08 08:00] VITALS: BP 141/71; TEMP 98.1; O2SAT 98
[2023-07-08] MEDS: BLOOD SUGAR DIAGNOSTIC 1 EACH STRIP IN SCH ×4 (08:06→22:03)
[2023-07-08] MEDS: INSULIN GLARGINE, 100 UNIT/ML CARTRIDGE SQ SCH ×2 (08:27→17:03)
[2023-07-08] MEDS: INSULIN LISPRO/ASPART 100 UNIT/ML CARTRIDGE SQ SCH ×3 (08:29→17:04)
[2023-07-08] MEDS: INSULIN REGULAR, HUMAN 100 UNIT/ML 3 ML VIAL SQ PRN ×3 (08:32→17:35)
[2023-07-08] MEDS: ASPIRIN EC 81 MG TABLET.DR PO SCH (08:33)
[2023-07-08] MEDS: CHOLECALCIFEROL 1,000 UNIT TABLET (VIT D3) PO SCH (08:33)
[2023-07-08] MEDS: risperiDONE 1 MG TABLET PO SCH ×3 (08:33→17:02)
[2023-07-08] MEDS: HALOPERIDOL 5 MG TABLET PO SCH ×3 (08:34→22:04)
[2023-07-08] MEDS: LITHIUM CARBONATE (300 MG CAP) 300 MG CAPSULE PO SCH ×2 (08:34→22:03)
[2023-07-08] MEDS: DOCUSATE SODIUM 100 MG CAPSULE PO SCH (08:35)
[2023-07-08] MEDS: LISINOPRIL (10MG) 10 MG TABLET PO SCH (08:35)
[2023-07-08] MEDS: BENZTROPINE MESYLATE (1 MG) 1 MG TABLET PO SCH ×2 (08:36→17:01)
[2023-07-08] MEDS: GABAPENTIN 300 MG CAPSULE PO SCH ×3 (08:36→17:01)
[2023-07-08] MEDS: hydrALAZINE HCL 25 MG TABLET PO SCH ×3 (08:36→17:00)
[2023-07-08 16:00] VITALS: BP 104/54; TEMP 98.4; O2SAT 98
[2023-07-08] MEDS: ATORVASTATIN 40 MG TABLET PO SCH (22:04)
[2023-07-08] MEDS: *INSULIN REGULAR(HUMULIN R)HUM 100 UNIT/ML VIAL SQ PRN (22:11)
[2023-07-09 08:00] VITALS: BP 150/73; TEMP 98.6; O2SAT 98
[2023-07-09] MEDS: BLOOD SUGAR DIAGNOSTIC 1 EACH STRIP IN SCH ×4 (08:13→22:17)
[2023-07-09] MEDS: ASPIRIN EC 81 MG TABLET.DR PO SCH (08:14)
[2023-07-09] MEDS: GABAPENTIN 300 MG CAPSULE PO SCH ×3 (08:14→17:05)
[2023-07-09] MEDS: CHOLECALCIFEROL 1,000 UNIT TABLET (VIT D3) PO SCH (08:14)
[2023-07-09] MEDS: risperiDONE 1 MG TABLET PO SCH ×3 (08:14→17:05)
[2023-07-09] MEDS: LISINOPRIL (10MG) 10 MG TABLET PO SCH (08:15)
[2023-07-09] MEDS: HALOPERIDOL 5 MG TABLET PO SCH ×3 (08:15→21:59)
[2023-07-09] MEDS: hydrALAZINE HCL 25 MG TABLET PO SCH ×3 (08:15→17:00)
[2023-07-09] MEDS: BENZTROPINE MESYLATE (1 MG) 1 MG TABLET PO SCH ×2 (08:15→17:05)
[2023-07-09] MEDS: DOCUSATE SODIUM 100 MG CAPSULE PO SCH (08:15)
[2023-07-09] MEDS: LITHIUM CARBONATE (300 MG CAP) 300 MG CAPSULE PO SCH ×2 (08:15→21:58)
[2023-07-09] MEDS: INSULIN LISPRO/ASPART 100 UNIT/ML CARTRIDGE SQ SCH ×3 (08:17→17:07)
[2023-07-09] MEDS: INSULIN GLARGINE, 100 UNIT/ML CARTRIDGE SQ SCH ×2 (08:18→17:06)
[2023-07-09] MEDS: INSULIN REGULAR, HUMAN 100 UNIT/ML 3 ML VIAL SQ PRN ×3 (08:19→17:09)
[2023-07-09 16:00] VITALS: BP 106/53; TEMP 97.8; O2SAT 99
[2023-07-09] MEDS: ATORVASTATIN 40 MG TABLET PO SCH (22:00)
[2023-07-09] MEDS: *INSULIN REGULAR(HUMULIN R)HUM 100 UNIT/ML VIAL SQ PRN (22:16)
[2023-07-10 08:00] VITALS: BP 135/72; TEMP 97.1; O2SAT 97
[2023-07-10] MEDS: INSULIN LISPRO/ASPART 100 UNIT/ML CARTRIDGE SQ SCH ×3 (08:15→17:35)
[2023-07-10] MEDS: INSULIN REGULAR, HUMAN 100 UNIT/ML 3 ML VIAL SQ PRN ×3 (08:17→17:31)
[2023-07-10] MEDS: INSULIN GLARGINE, 100 UNIT/ML CARTRIDGE SQ SCH ×2 (08:18→17:33)
[2023-07-10] MEDS: BLOOD SUGAR DIAGNOSTIC 1 EACH STRIP IN SCH ×4 (08:19→21:27)
[2023-07-10] MEDS: CHOLECALCIFEROL 1,000 UNIT TABLET (VIT D3) PO SCH (08:32)
[2023-07-10] MEDS: ASPIRIN EC 81 MG TABLET.DR PO SCH (08:32)
[2023-07-10] MEDS: hydrALAZINE HCL 25 MG TABLET PO SCH ×3 (08:32→16:55)
[2023-07-10] MEDS: DOCUSATE SODIUM 100 MG CAPSULE PO SCH (08:32)
[2023-07-10] MEDS: LITHIUM CARBONATE (300 MG CAP) 300 MG CAPSULE PO SCH ×2 (08:34→21:27)
[2023-07-10] MEDS: risperiDONE 1 MG TABLET PO SCH ×3 (08:34→16:54)
[2023-07-10] MEDS: BENZTROPINE MESYLATE (1 MG) 1 MG TABLET PO SCH ×2 (08:34→16:54)
[2023-07-10] MEDS: HALOPERIDOL 5 MG TABLET PO SCH ×3 (08:34→21:27)
[2023-07-10] MEDS: GABAPENTIN 300 MG CAPSULE PO SCH ×3 (08:34→16:54)
[2023-07-10] MEDS: LISINOPRIL (10MG) 10 MG TABLET PO SCH (08:35)
[2023-07-10 15:50] VITALS: BP 130/68; TEMP 97.1; O2SAT 97
[2023-07-10 20:22] VITALS: BP 80/52; TEMP 98.6; O2SAT 97
[2023-07-10] MEDS: ATORVASTATIN 40 MG TABLET PO SCH (21:27)
[2023-07-10] MEDS: *INSULIN REGULAR(HUMULIN R)HUM 100 UNIT/ML VIAL SQ PRN (21:34)
[2023-07-11] MEDS: ACETAMINOPHEN 325 MG TABLET PO PRN (04:04)
[2023-07-11] MEDS: BLOOD SUGAR DIAGNOSTIC 1 EACH STRIP IN SCH ×2 (07:42→11:41)
[2023-07-11] MEDS: INSULIN LISPRO/ASPART 100 UNIT/ML CARTRIDGE SQ SCH ×2 (07:49→12:08)
[2023-07-11] MEDS: INSULIN REGULAR, HUMAN 100 UNIT/ML 3 ML VIAL SQ PRN ×2 (07:52→12:08)
[2023-07-11 08:00] VITALS: BP 144/63; TEMP 98.6; O2SAT 99
[2023-07-11] MEDS: DOCUSATE SODIUM 100 MG CAPSULE PO SCH (08:56)
[2023-07-11] MEDS: LITHIUM CARBONATE (300 MG CAP) 300 MG CAPSULE PO SCH (08:56)
[2023-07-11] MEDS: risperiDONE 1 MG TABLET PO SCH (08:57)
[2023-07-11] MEDS: GABAPENTIN 300 MG CAPSULE PO SCH (08:57)
[2023-07-11] MEDS: BENZTROPINE MESYLATE (1 MG) 1 MG TABLET PO SCH (08:57)
[2023-07-11] MEDS: CHOLECALCIFEROL 1,000 UNIT TABLET (VIT D3) PO SCH (08:57)
[2023-07-11] MEDS: HALOPERIDOL 5 MG TABLET PO SCH (08:57)
[2023-07-11 08:58] VITALS: BP 144/63
[2023-07-11] MEDS: LISINOPRIL (10MG) 10 MG TABLET PO SCH (08:58)
[2023-07-11] MEDS: hydrALAZINE HCL 25 MG TABLET PO SCH (08:58)
[2023-07-11] MEDS: ASPIRIN EC 81 MG TABLET.DR PO SCH (08:58)
[2023-07-11] MEDS: INSULIN GLARGINE, 100 UNIT/ML CARTRIDGE SQ SCH (09:37)
== END 2023-07-11 12:30 | DRG 885 ==
LOC: ER 09:09 → GPS 16:27
PROVIDERS: ADMIT Psychiatry & Neurology Psychosomatic Medicine; ATTEND Internal Medicine
DX: F25.0 Schizoaffective disorder, bipolar type (principal); E11.65 Type 2 diabetes mellitus with hyperglycemia; E87.20 Acidosis, unspecified; F29 Unspecified psychosis not due to a substance or known physiological condition; I10 Essential (primary) hypertension; E78.5 Hyperlipidemia, unspecified; Z88.0 Allergy status to penicillin; Z79.899 Other long term (current) drug therapy; Z79.84 Long term (current) use of oral hypoglycemic drugs; Z79.4 Long term (current) use of insulin; E66.9 Obesity, unspecified; Z68.31 Body mass index [BMI] 31.0-31.9, adult; E11.40 Type 2 diabetes mellitus with diabetic neuropathy, unspecified; Z73.6 Limitation of activities due to disability; J44.9 Chronic obstructive pulmonary disease, unspecified; F03.90 Unspecified dementia, unspecified severity, without behavioral disturbance, psychotic disturbance, mood disturbance, and anxiety; Z20.822 Contact with and (suspected) exposure to COVID-19; Z85.038 Personal history of other malignant neoplasm of large intestine
CPT/HCPCS: 36415; 80048-TC; 80053-TC; 80076-TC; 81001; 82010-TC; 82962-TC; 83605-TC; 85025-TC; G0480; J1815

== ENCOUNTER 2024-03-08 22:24 | Inpatient (IN) | payer MEDICARE, OTHER ==
[~2024-03-08] VITALS: Ht 167.6 cm; Wt 83.9 kg
[~2024-03-08 22:24] MED LIST changes: +ACET-868 PO; +BENZ1TAB7 PO; +BISA10SU11 RC; +HALO10TA13 PO; +HALO5TAB PO; +INSU100V7 SQ; -LEVO50TA8 PO; +LITH300T3 PO; +MAGN400O6 PO; +NA P133E RC; -POLY15DR40 EACHEYE
[2024-03-08 22:57] LABS: BASOPHILS % (AUTO) 0.6 % (0.0-2.0); EOSINOPHILS # (AUTO) 0.2 K/uL (0.0-0.7); EOSINOPHILS % (AUTO) 2.4 % (0.0-6.0); HEMATOCRIT 42 % (33-45); HEMOGLOBIN 14.5 g/dL (11.5-14.8); LYMPHOCYTES # (AUTO) 2.8 K/uL (0.8-4.8); LYMPHOCYTES % (AUTO) 38.9 % (20.0-44.0); MEAN CORPUSCULAR HEMOGLOBIN 30 PG (26.0-33.0); MEAN CORPUSCULAR HGB CONC 35 g/dl (31.0-36.0); MEAN CORPUSCULAR VOLUME 87 fL (82-100); MONOCYTES # (AUTO) 0.5 K/uL (0.1-1.30); MONOCYTES % (AUTO) 7.2 % (2.0-12.0); NEUTROPHILS # (AUTO) 3.6 K/uL (1.8-8.9); NEUTROPHILS % (AUTO) 50.9 % (43.0-81.0); PLATELET COUNT (AUTO) 329 K/uL (150-450); RED BLOOD CELL COUNT(AUTO) 4.82 MIL/uL (4.0-5.2); WHITE BLOOD COUNT (AUTO) 7.1 K/uL (4.3-11.0)
[2024-03-08 23:11] LABS: ALANINE AMINOTRANSFERASE 20 U/L (12-78); ALKALINE PHOSPHATASE 242 U/L (46-116); ASPARTATE AMINOTRANSFERASE 5 U/L (15-37); BILIRUBIN,DIRECT 0.1 mg/dL (0.0-0.2); BILIRUBIN,TOTAL 0.4 mg/dL (0.2-1.0); CALCIUM, SERUM 9.3 mg/dL (8.5-10.1); CARBON DIOXIDE 23 mmol/L (21-32); CHLORIDE 99 mmol/L (98-107); CREATININE 0.9 mg/dL (0.6-1.3); POTASSIUM 3.5 mmol/L (3.5-5.1); SODIUM SERUM 134 mmol/L (136-145); TOTAL PROTEIN, SERUM 7.6 g/dL (6.4-8.2); UREA NITROGEN, BLOOD 16 mg/dL (7-18)
[2024-03-08 23:13] LABS: AMPHETAMINE, URINE NEGATIVE (NEGATIVE); BARBITURATE, URINE NEGATIVE (NEGATIVE); BENZODIAZEPINE, URINE NEGATIVE (NEGATIVE); CANNABINOID, URINE NEGATIVE (NEGATIVE); COCCAINE, URINE NEGATIVE (NEGATIVE); OPIATE, URINE NEGATIVE (NEGATIVE); PHENCYCLIDINE SCREEN,URINE NEGATIVE (NEGATIVE)
[2024-03-08 23:13] LABS: GLUCOSE 485 mg/dL (74-106)
[2024-03-08 23:14] LABS: ACETAMINOPHEN <10 ug/ml (10-30); ALCOHOL, BLOOD < 3 mg/dL (0-10)
[2024-03-08 23:19] LABS: APPEARANCE,URINE CLEAR (CLEAR); BILIRUBIN,URINE NEGATIVE (NEGATIVE); BLOOD, URINE NEGATIVE Ery/uL (NEGATIVE); COLOR,URINE YELLOW (YELLOW); KETONES,URINE NEGATIVE (NEGATIVE); LEUKOCYTE ESTERASE ,URINE NEGATIVE (NEGATIVE); NITRITE, URINE POSITIVE (NEGATIVE); PH,URINE 5.5 (5.0-8.0); PROTEIN,URINE NEGATIVE (NEGATIVE); UGLUCOSE 3+ mg/dL (NEGATIVE); UROBILINOGEN,URINE 0.2 EU/dL (0.2)
[2024-03-08] MEDS: IV NS 0.9% 1,000 ML BAG IV ONE (23:34)
[2024-03-08] MEDS ORDERED: INSULIN REGULAR, HUMAN 100 UNIT/ML 10 ML VIAL ONE (23:43)
[2024-03-08] MEDS: INSULIN REGULAR, HUMAN 100 UNIT/ML 10 ML VIAL IV ONE (23:46)
[2024-03-09 00:06] LABS: ADD URINE CULTURE YES; BACTERIA,URINE 4+ /HPF (None Seen); RBC,URINE NONE SEEN /HPF (0-2); WBC,URINE NONE SEEN /HPF (0-3)
[2024-03-09] MEDS ORDERED: ACETAMINOPHEN 325 MG TABLET PO PRN ×2 (00:30→01:30)
[2024-03-09] MEDS ORDERED: BISACODYL SUPP (10 MG) 10 MG/SUPP.RECT SUPP.RECT RC PRN (00:30)
[2024-03-09] MEDS ORDERED: DEXTROSE 50%-WATER 50 ML DISP.SYRIN IV PRN (01:00)
[2024-03-09] MEDS ORDERED: LORAZEPAM 0.5 MG TABLET PO PRN (01:30)
[2024-03-09] MEDS ORDERED: MAGNESIUM HYDROXIDE 30 ML UDC PO PRN (01:30)
[2024-03-09] MEDS ORDERED: TEMAZEPAM 7.5 MG CAPSULE PO PRN (01:30)
[2024-03-09 01:43] VITALS: BP 132/76; TEMP 98; O2SAT 98
[2024-03-09] MEDS: BLOOD SUGAR DIAGNOSTIC 1 EACH STRIP IN ONE (02:07)
[2024-03-09] MEDS ORDERED: INSU100V28 SQ (07:32)
[2024-03-09] MEDS ORDERED: GLUC1KIT SQ (07:32)
[2024-03-09] MEDS ORDERED: MAG-5 PO (07:32)
[2024-03-09] MEDS ORDERED: ACET-868 PO (07:32)
[2024-03-09] MEDS ORDERED: INSU100V7 SQ (07:32)
[2024-03-09] MEDS ORDERED: GABA300C PO (07:32)
[2024-03-09] MEDS: BLOOD SUGAR DIAGNOSTIC 1 EACH STRIP IN SCH (07:45)
[2024-03-09 08:00] VITALS: BP 142/82; TEMP 98; O2SAT 100
[2024-03-09] MEDS: INSULIN REGULAR, HUMAN 100 UNIT/ML 3 ML VIAL SQ PRN (08:05)
[2024-03-09] MEDS: CIPROFLOXACIN HCL 250 MG TABLET PO SCH (09:22)
[2024-03-09] MEDS: GABAPENTIN 300 MG CAPSULE PO SCH ×2 (09:22→14:09)
[2024-03-09] MEDS: NICOTINE PATCH (14MG) 14 MG PATCH.TD24 TD SCH (09:22)
[2024-03-09] MEDS: LISINOPRIL (10MG) 10 MG TABLET PO SCH (09:23)
[2024-03-09] MEDS: CHOLECALCIFEROL 1,000 UNIT TABLET (VIT D3) PO SCH (09:23)
[2024-03-09] MEDS: ASPIRIN EC 81 MG TABLET.DR PO SCH (09:24)
[2024-03-09] MEDS: DOCUSATE SODIUM 100 MG CAPSULE PO SCH (09:24)
[2024-03-09 16:00] VITALS: BP 136/81; TEMP 98.1; O2SAT 98
[2024-03-09] MEDS: HALOPERIDOL 5 MG TABLET PO SCH ×2 (17:01→21:06)
[2024-03-09] MEDS: LITHIUM CARBONATE 150 MG CAPSULE PO SCH (20:37)
[2024-03-09] MEDS: ATORVASTATIN 40 MG TABLET PO SCH (21:06)
[2024-03-10] MEDS: INSULIN REGULAR, HUMAN 100 UNIT/ML 3 ML VIAL SQ PRN (11:37)
[2024-03-10 16:00] VITALS: BP 117/73; TEMP 98.8; O2SAT 100
[2024-03-10 20:49] VITALS: BP 139/69; TEMP 98.7; O2SAT 98
[2024-03-10] MEDS: INSULIN GLARGINE, 100 UNIT/ML CARTRIDGE SQ SCH (21:20)
[2024-03-10] MEDS: *INSULIN REGULAR(HUMULIN R)HUM 100 UNIT/ML VIAL SQ PRN (21:20)
[2024-03-11] MEDS: INSULIN GLARGINE, 100 UNIT/ML CARTRIDGE SQ SCH (09:26)
[2024-03-11] MEDS: HALOPERIDOL 5 MG TABLET PO SCH (16:39)
[2024-03-11] MEDS: *INSULIN REGULAR(HUMULIN R)HUM 100 UNIT/ML VIAL SQ PRN (23:14)
[2024-03-12] MEDS: METFORMIN 500 MG TABLET PO SCH (11:00)
[2024-03-12 16:00] VITALS: BP 121/79; TEMP 98.6; O2SAT 100
[2024-03-12 20:00] VITALS: BP 128/64; TEMP 97.7; O2SAT 99
[2024-03-12] MEDS: INSULIN GLARGINE, 100 UNIT/ML CARTRIDGE SQ SCH (21:00)
[2024-03-13 08:00] VITALS: BP 152/83; TEMP 98.1; O2SAT 100
[2024-03-13] MEDS: LINAGLIPTIN 5 MG TABLET PO SCH (08:31)
[2024-03-13 16:00] VITALS: BP 141/70; TEMP 97.7; O2SAT 99
[2024-03-13 20:00] VITALS: BP 140/84; TEMP 97.9; O2SAT 97
[2024-03-14 08:00] VITALS: BP 134/77; TEMP 98.2; O2SAT 97
[2024-03-14] MEDS: OXCARBAZEPINE 150 MG TABLET PO SCH (11:59)
[2024-03-14 16:00] VITALS: BP 151/80; TEMP 98.6; O2SAT 97
[2024-03-14 20:00] VITALS: BP 109/71; TEMP 98; O2SAT 97
[2024-03-15 08:00] VITALS: BP 139/71; TEMP 97.7; O2SAT 98
[2024-03-15 16:00] VITALS: BP 125/72; TEMP 97.5; O2SAT 98
[2024-03-15] MEDS: OLANZAPINE 10 MG VIAL IM PRN (18:02)
[2024-03-15 20:00] VITALS: BP 140/67; TEMP 97.6; O2SAT 99
[2024-03-16 08:00] VITALS: BP 154/75; TEMP 98.2; O2SAT 98
[2024-03-16] MEDS: LEVOFLOXACIN (250MG) 250 MG TABLET PO SCH (11:03)
[2024-03-16 16:00] VITALS: BP 160/96; TEMP 98.7; O2SAT 99
[2024-03-16 20:00] VITALS: BP 160/65; TEMP 98.8; O2SAT 99
[2024-03-16 20:33] VITALS: BP 160/65; TEMP 98.8; O2SAT 99
[2024-03-17 08:00] VITALS: BP 108/80; TEMP 98.6; O2SAT 98
[2024-03-17] MEDS ORDERED: OLANZAPINE 10 MG VIAL IM PRN (11:00)
[2024-03-17] MEDS: OXCARBAZEPINE 150 MG TABLET PO SCH (13:01)
[2024-03-17 16:00] VITALS: BP 118/90; TEMP 97.8; O2SAT 98
[2024-03-17] MEDS: BENZTROPINE MESYLATE (1 MG) 1 MG TABLET PO SCH (16:41)
[2024-03-17 20:17] VITALS: BP 111/91; TEMP 97.8; O2SAT 99
[2024-03-18 08:00] VITALS: BP 128/86; TEMP 97.7; O2SAT 96
[2024-03-18] MEDS: MAG HYDROX/AL HYDROX/SIMETH 30 ML UDC PO PRN (08:41)
[2024-03-18] MEDS: MAGNESIUM HYDROXIDE 30 ML UDC PO PRN (08:41)
[2024-03-18 15:08] LABS: CALCIUM, SERUM 9.5 mg/dL (8.5-10.1); CREATININE 0.7 mg/dL (0.6-1.3); POTASSIUM 4.2 mmol/L (3.5-5.1)
[2024-03-18 16:07] VITALS: BP 122/72; TEMP 97.8; O2SAT 99
[2024-03-18 20:21] VITALS: BP 118/63; TEMP 99.5; O2SAT 98
[2024-03-19 08:00] VITALS: BP 132/89; TEMP 97.9; O2SAT 100
[2024-03-19 16:00] VITALS: BP 136/95; TEMP 98.8; O2SAT 98
[2024-03-19] MEDS: BACITRACIN/POLYMYXIN B 15 GM TUBE TP SCH (16:19)
[2024-03-20 08:00] VITALS: BP 143/93; TEMP 98.1; O2SAT 97
[2024-03-20 08:30] VITALS: BP 143/93
== END 2024-03-20 13:45 | DRG 885 ==
LOC: ER 22:30 → GPS 03-09 00:32
PROVIDERS: ADMIT Psychiatry & Neurology Psychosomatic Medicine
DX: F25.0 Schizoaffective disorder, bipolar type (principal); E11.65 Type 2 diabetes mellitus with hyperglycemia; G93.41 Metabolic encephalopathy; N39.0 Urinary tract infection, site not specified; E44.1 Mild protein-calorie malnutrition; D68.69 Other thrombophilia; I10 Essential (primary) hypertension; Z20.822 Contact with and (suspected) exposure to COVID-19; B35.3 Tinea pedis; E11.42 Type 2 diabetes mellitus with diabetic polyneuropathy; Z79.4 Long term (current) use of insulin; J44.9 Chronic obstructive pulmonary disease, unspecified; E88.09 Other disorders of plasma-protein metabolism, not elsewhere classified; E78.5 Hyperlipidemia, unspecified; E66.01 Morbid (severe) obesity due to excess calories; Z88.0 Allergy status to penicillin; Z68.29 Body mass index [BMI] 29.0-29.9, adult; S90.821A Blister (nonthermal), right foot, initial encounter; X58.XXXA Exposure to other specified factors, initial encounter; Y93.9 Activity, unspecified; Y92.129 Unspecified place in nursing home as the place of occurrence of the external cause; Y99.9 Unspecified external cause status; Z73.6 Limitation of activities due to disability
CPT/HCPCS: 36415; 80048-TC; 80076-TC; 81001; 82962-TC; 85025-TC; 87081-TC; 97116-TC; 97530-TC; G0480; J1815; J3490

== ENCOUNTER 2024-05-18 20:32 | Inpatient (IN) | payer MEDICARE, OTHER ==
[~2024-05-18] VITALS: Ht 172.7 cm; Wt 76.7 kg
[~2024-05-18 20:32] MED LIST changes: -GABA-532 PO; +GABA300C PO; +GLUC1KIT SQ; -INSU100V11 SQ; +INSU100V28 SQ; +MAG-5 PO; -METF-442 PO
[2024-05-18 21:15] LABS: BASOPHILS # (AUTO) 0.1 K/uL (0.0-0.2); BASOPHILS % (AUTO) 0.8 % (0.0-2.0); EOSINOPHILS # (AUTO) 0.2 K/uL (0.0-0.7); EOSINOPHILS % (AUTO) 2.8 % (0.0-6.0); HEMATOCRIT 41 % (33-45); HEMOGLOBIN 13.9 g/dL (11.5-14.8); LYMPHOCYTES # (AUTO) 2.6 K/uL (0.8-4.8); LYMPHOCYTES % (AUTO) 30.4 % (20.0-44.0); MEAN CORPUSCULAR HEMOGLOBIN 30 PG (26.0-33.0); MEAN CORPUSCULAR HGB CONC 34 g/dl (31.0-36.0); MEAN CORPUSCULAR VOLUME 87 fL (82-100); MONOCYTES # (AUTO) 0.6 K/uL (0.1-1.30); MONOCYTES % (AUTO) 6.5 % (2.0-12.0); NEUTROPHILS # (AUTO) 5.1 K/uL (1.8-8.9); NEUTROPHILS % (AUTO) 59.5 % (43.0-81.0); PLATELET COUNT (AUTO) 440 K/uL (150-450); RED CELL DISTRIBUTION WIDTH 13.3 % (11.5-15.0); WHITE BLOOD COUNT (AUTO) 8.5 K/uL (4.3-11.0)
[2024-05-18] MEDS ORDERED: OLANZAPINE 5 MG TABLET ONE ×2 (21:17→21:19)
[2024-05-18] MEDS: OLANZAPINE ZYDIS 5 MG TAB.RAPDIS PO ONE (21:27)
[2024-05-18 21:30] LABS: CHLORIDE 101 mmol/L (98-107); POTASSIUM 4.4 mmol/L (3.5-5.1); SODIUM SERUM 135 mmol/L (136-145)
[2024-05-18 21:31] LABS: CARBON DIOXIDE 28 mmol/L (21-32); GLUCOSE 415 mg/dL (74-106)
[2024-05-18 21:32] LABS: CALCIUM, SERUM 9.9 mg/dL (8.5-10.1); CREATININE 0.8 mg/dL (0.6-1.3); UREA NITROGEN, BLOOD 20 mg/dL (7-18)
[2024-05-18 21:35] LABS: BILIRUBIN,DIRECT 0.1 mg/dL (0.0-0.2); BILIRUBIN,TOTAL 0.6 mg/dL (0.2-1.0)
[2024-05-18 21:36] LABS: ACETAMINOPHEN 0 ug/ml (10-30); ALANINE AMINOTRANSFERASE 17 U/L (12-78); ALCOHOL, BLOOD < 3 mg/dL (0-10); ALKALINE PHOSPHATASE 219 U/L (46-116); ASPARTATE AMINOTRANSFERASE 10 U/L (15-37); SALICYLATE 2.1 mg/dL (2.8-20.0)
[2024-05-18] MEDS ORDERED: INSULIN REGULAR, HUMAN 100 UNIT/ML 10 ML VIAL ONE (21:49)
[2024-05-18] MEDS ORDERED: LISINOPRIL (10MG) 10 MG TABLET ONE (21:52)
[2024-05-18] MEDS: LISINOPRIL (10MG) 10 MG TABLET PO SCH (22:04)
[2024-05-18 22:05] LABS: APPEARANCE,URINE CLEAR (CLEAR); BILIRUBIN,URINE NEGATIVE (NEGATIVE); BLOOD, URINE NEGATIVE Ery/uL (NEGATIVE); COLOR,URINE YELLOW (YELLOW); KETONES,URINE TRACE mg/dL (NEGATIVE); LEUKOCYTE ESTERASE ,URINE NEGATIVE (NEGATIVE); NITRITE, URINE POSITIVE (NEGATIVE); PH,URINE 5.5 (5.0-8.0); PROTEIN,URINE TRACE mg/dl (NEGATIVE); UGLUCOSE 3+ mg/dL (NEGATIVE); UROBILINOGEN,URINE 0.2 EU/dL (0.2)
[2024-05-18] MEDS: INSULIN REGULAR, HUMAN 100 UNIT/ML 10 ML VIAL SQ ONE (22:09)
[2024-05-18 22:15] LABS: AMPHETAMINE, URINE NEGATIVE (NEGATIVE); BARBITURATE, URINE NEGATIVE (NEGATIVE); BENZODIAZEPINE, URINE NEGATIVE (NEGATIVE); CANNABINOID, URINE NEGATIVE (NEGATIVE); COCCAINE, URINE NEGATIVE (NEGATIVE); OPIATE, URINE NEGATIVE (NEGATIVE); PHENCYCLIDINE SCREEN,URINE NEGATIVE (NEGATIVE)
[2024-05-18 22:32] LABS: RBC,URINE NONE SEEN /HPF (0-2)
[2024-05-18 22:33] LABS: ADD URINE CULTURE YES; BACTERIA,URINE 3+ /HPF (None Seen); MUCUS,URINE Few /LPF (None Seen)
[2024-05-18] MEDS: CIPROFLOXACIN HCL 250 MG TABLET PO ONE (23:08)
[2024-05-18] MEDS ORDERED: CIPROFLOXACIN HCL 500 MG TABLET ONE (23:08)
[2024-05-19] VITALS: O2SAT 98
[2024-05-19] MEDS ORDERED: MAGNESIUM HYDROXIDE 30 ML UDC PO PRN (04:30)
[2024-05-19] MEDS: BLOOD SUGAR DIAGNOSTIC 1 EACH STRIP IN ONE (04:30)
[2024-05-19] MEDS ORDERED: LINA5TAB PO (06:30)
[2024-05-19] MEDS ORDERED: METF-442 PO (06:37)
[2024-05-19] MEDS ORDERED: DEXTROSE 50%-WATER 50 ML DISP.SYRIN IV PRN ×3 (06:41→18:30)
[2024-05-19] MEDS: BLOOD SUGAR DIAGNOSTIC 1 EACH STRIP IN SCH ×2 (07:30→21:30)
[2024-05-19 08:00] VITALS: BP 106/56; TEMP 97.9; O2SAT 97
[2024-05-19 08:20] LABS: ALBUMIN 2.5 g/dL (3.4-5.0); BILIRUBIN,TOTAL 0.8 mg/dL (0.2-1.0); CALCIUM, SERUM 9.2 mg/dL (8.5-10.1); CREATININE 0.8 mg/dL (0.6-1.3); TOTAL PROTEIN, SERUM 6.9 g/dL (6.4-8.2)
[2024-05-19] MEDS ORDERED: OXCA300T4 PO (08:46)
[2024-05-19 10:43] LABS: CHOLESTEROL 181 mg/dL (<200); HDL CHOLESTEROL 43 mg/dL (40-60); LDL 95 mg/dL (0-99); TRIGLYCERIDES 244 mg/dL (30-150)
[2024-05-19] MEDS: HALOPERIDOL 5 MG TABLET PO SCH (11:25)
[2024-05-19] MEDS: OXCARBAZEPINE 150 MG TABLET PO SCH (11:25)
[2024-05-19] MEDS ORDERED: ACETAMINOPHEN 325 MG TABLET PO PRN (11:30)
[2024-05-19] MEDS ORDERED: MAG HYDROX/AL HYDROX/SIMETH 30 ML UDC PO PRN (11:30)
[2024-05-19] MEDS: INSULIN REGULAR, HUMAN 100 UNIT/ML 3 ML VIAL SQ PRN ×2 (12:25→21:40)
[2024-05-19] MEDS: GABAPENTIN 300 MG CAPSULE PO SCH (12:40)
[2024-05-19] MEDS ORDERED: OXCARBAZEPINE 300 MG PO SCH (13:00)
[2024-05-19 16:00] VITALS: BP_SYST 105; BP_SYST 127; BP_DIAS 53; BP_DIAS 63; TEMP 97.7; TEMP 98; O2SAT 97; O2SAT 98
[2024-05-19] MEDS: METFORMIN 500 MG TABLET PO SCH (16:26)
[2024-05-19 20:36] VITALS: BP 114/57; TEMP 97.9; O2SAT 100
[2024-05-19] MEDS: ATORVASTATIN 40 MG TABLET PO SCH (21:20)
[2024-05-19] MEDS: CIPROFLOXACIN HCL 250 MG TABLET PO SCH (21:20)
[2024-05-19] MEDS: INSULIN GLARGINE, 100 UNIT/ML CARTRIDGE SQ SCH (21:38)
[2024-05-20 07:43] LABS: CREATININE 0.8 mg/dL (0.6-1.3)
[2024-05-20 08:00] VITALS: BP 126/64; TEMP 98.1; O2SAT 100
[2024-05-20] MEDS: CHOLECALCIFEROL 1,000 UNIT TABLET (VIT D3) PO SCH (09:16)
[2024-05-20] MEDS: LISINOPRIL (10MG) 10 MG TABLET PO SCH (09:17)
[2024-05-20] MEDS: BENZTROPINE MESYLATE (1 MG) 1 MG TABLET PO SCH (09:18)
[2024-05-20] MEDS: LINAGLIPTIN 5 MG TABLET PO SCH (09:18)
[2024-05-20] MEDS: DOCUSATE SODIUM 100 MG CAPSULE PO SCH (09:18)
[2024-05-20] MEDS: ASPIRIN EC 81 MG TABLET.DR PO SCH (09:19)
[2024-05-20] MEDS: HALOPERIDOL 5 MG TABLET PO SCH (13:33)
[2024-05-20 16:00] VITALS: BP 100/61; TEMP 98.1; O2SAT 96
[2024-05-20] MEDS: MAG HYDROX/AL HYDROX/SIMETH 30 ML UDC PO PRN (19:45)
[2024-05-20 20:30] VITALS: BP 105/81; TEMP 97.9; O2SAT 97
[2024-05-21] MEDS: LOPERAMIDE HCL (2 MG CAP) 2 MG CAPSULE PO PRN (02:34)
[2024-05-21] MEDS: ONDANSETRON 4 MG TAB.RAPDIS PO PRN (03:32)
[2024-05-21 08:00] VITALS: BP 96/63; TEMP 98.7; O2SAT 100
[2024-05-21 16:00] VITALS: BP 96/58; TEMP 98.1; O2SAT 98
[2024-05-21 18:01] LABS: BASOPHILS # (AUTO) 0.1 K/uL (0.0-0.2); BASOPHILS % (AUTO) 0.5 % (0.0-2.0); EOSINOPHILS # (AUTO) 0.2 K/uL (0.0-0.7); EOSINOPHILS % (AUTO) 2.2 % (0.0-6.0); HEMATOCRIT 40 % (33-45); HEMOGLOBIN 13.4 g/dL (11.5-14.8); LYMPHOCYTES # (AUTO) 2.3 K/uL (0.8-4.8); LYMPHOCYTES % (AUTO) 20.7 % (20.0-44.0); MEAN CORPUSCULAR HEMOGLOBIN 29 PG (26.0-33.0); MEAN CORPUSCULAR HGB CONC 34 g/dl (31.0-36.0); MEAN CORPUSCULAR VOLUME 88 fL (82-100); MONOCYTES # (AUTO) 0.7 K/uL (0.1-1.30); MONOCYTES % (AUTO) 6.5 % (2.0-12.0); NEUTROPHILS % (AUTO) 70.1 % (43.0-81.0); PLATELET COUNT (AUTO) 451 K/uL (150-450); RED BLOOD CELL COUNT(AUTO) 4.57 MIL/uL (4.0-5.2); RED CELL DISTRIBUTION WIDTH 13.7 % (11.5-15.0); WHITE BLOOD COUNT (AUTO) 11.3 K/uL (4.3-11.0)
[2024-05-21 18:30] LABS: ALBUMIN 2.7 g/dL (3.4-5.0); BILIRUBIN,TOTAL 0.4 mg/dL (0.2-1.0); MAGNESIUM 1.6 mg/dL (1.8-2.4); POTASSIUM 4.2 mmol/L (3.5-5.1); TOTAL PROTEIN, SERUM 7.4 g/dL (6.4-8.2)
[2024-05-21 18:31] LABS: CALCIUM, SERUM 9.6 mg/dL (8.5-10.1); CREATININE 0.9 mg/dL (0.6-1.3)
[2024-05-21] MEDS: MECLIZINE HCL 25 MG TABLET PO PRN (18:46)
[2024-05-21 20:00] VITALS: BP_SYST 122; BP_SYST 157; BP_DIAS 62; BP_DIAS 63; TEMP 98.3; O2SAT 100; O2SAT 99
[2024-05-21] MEDS: MAGNESIUM OXIDE 400 MG TABLET PO SCH (20:54)
[2024-05-22 08:00] VITALS: BP 121/66; TEMP 98.6; O2SAT 98
[2024-05-22] MEDS: HALOPERIDOL LACTATE INJ 5 MG/ML VIAL IM PRN (09:47)
[2024-05-22 16:00] VITALS: BP 108/60; TEMP 98.6; O2SAT 97
[2024-05-22 20:00] VITALS: BP 107/67; TEMP 98.3; O2SAT 100
[2024-05-23 08:00] VITALS: BP 124/64; TEMP 98.6; O2SAT 96
[2024-05-23 16:00] VITALS: BP 126/60; TEMP 97.7; O2SAT 96
[2024-05-23] MEDS: INSULIN GLARGINE, 100 UNIT/ML CARTRIDGE SQ SCH (21:43)
[2024-05-24 08:00] VITALS: BP 122/66; TEMP 97.4; O2SAT 98
[2024-05-24 16:00] VITALS: BP 113/58; TEMP 98.6; O2SAT 99
[2024-05-24 20:34] VITALS: BP 137/66; TEMP 98.6; O2SAT 97
[2024-05-25 08:00] VITALS: BP 125/68; TEMP 97.8; O2SAT 98
[2024-05-25] MEDS: HALOPERIDOL DECANOATE IM 100 MG/ML AMPUL IM ONE (12:28)
[2024-05-25 16:00] VITALS: BP 100/69; TEMP 98.1; O2SAT 96
[2024-05-25 20:20] VITALS: BP 125/66; TEMP 98.2; O2SAT 98
[2024-05-26 08:00] VITALS: BP 139/65; TEMP 97.9; O2SAT 99
[2024-05-26] MEDS: LINEZOLID 600 MG TABLET PO SCH (10:52)
[2024-05-26 16:00] VITALS: BP 115/58; TEMP 98.7; O2SAT 96
[2024-05-26 21:17] VITALS: BP 100/65; TEMP 98.2; O2SAT 96
[2024-05-27 08:00] VITALS: BP 117/67; TEMP 97.7; O2SAT 98
[2024-05-27 16:00] VITALS: BP 106/71; TEMP 97.8; O2SAT 97
[2024-05-27 20:34] VITALS: BP 108/64; TEMP 98; O2SAT 99
[2024-05-28] MEDS: LORAZEPAM 0.5 MG TABLET PO PRN (03:25)
[2024-05-28 08:00] VITALS: BP 107/55; TEMP 98.7; O2SAT 98
[2024-05-28 16:00] VITALS: BP 123/80; TEMP 97.9; O2SAT 97
[2024-05-28] MEDS: BENZTROPINE MESYLATE (1 MG) 1 MG TABLET PO SCH (16:24)
[2024-05-28 20:00] VITALS: BP 114/67; TEMP 98.2; O2SAT 97
[2024-05-29 08:00] VITALS: BP 114/83; TEMP 98; O2SAT 98
[2024-05-29 16:00] VITALS: BP 126/71; TEMP 98.6; O2SAT 98
[2024-05-29 20:00] VITALS: BP 114/59; TEMP 98.4; O2SAT 98
[2024-05-29] MEDS: ACETAMINOPHEN 325 MG TABLET PO PRN (22:48)
[2024-05-29] MEDS: TEMAZEPAM 7.5 MG CAPSULE PO PRN (22:55)
[2024-05-30 08:00] VITALS: BP 132/63; TEMP 98.1; O2SAT 98
== END 2024-05-30 12:35 | DRG 885 ==
LOC: ER 20:33 → GPS 05-19 01:52
PROVIDERS: ADMIT Psychiatry & Neurology Psychosomatic Medicine; ATTEND Nurse Practitioner Acute Care
DX: F25.0 Schizoaffective disorder, bipolar type (principal); B95.2 Enterococcus as the cause of diseases classified elsewhere; E11.65 Type 2 diabetes mellitus with hyperglycemia; E44.0 Moderate protein-calorie malnutrition; N39.0 Urinary tract infection, site not specified; Z16.21 Resistance to vancomycin; F02.83 Dementia in other diseases classified elsewhere, unspecified severity, with mood disturbance; E78.5 Hyperlipidemia, unspecified; I10 Essential (primary) hypertension; E88.09 Other disorders of plasma-protein metabolism, not elsewhere classified; G20.C Parkinsonism, unspecified; J44.9 Chronic obstructive pulmonary disease, unspecified; Z79.4 Long term (current) use of insulin; Z85.038 Personal history of other malignant neoplasm of large intestine; Z88.0 Allergy status to penicillin; Z20.822 Contact with and (suspected) exposure to COVID-19; F39 Unspecified mood [affective] disorder; R94.31 Abnormal electrocardiogram [ECG] [EKG]; Z68.25 Body mass index [BMI] 25.0-25.9, adult; Z79.899 Other long term (current) drug therapy
CPT/HCPCS: 36415; 71045-TC; 80048-TC; 80053-TC; 80061-TC; 80076-TC; 81001; 82565-TC; 82962-TC; 83735-TC; 85025-TC; 87081-TC; 87086-TC; G0480; J1630; J1631; J1815; J8597; Q0162

== ENCOUNTER 2025-08-14 10:19 | Inpatient (IN) | payer MEDICARE, OTHER ==
[~2025-08-14] VITALS: Ht 162.6 cm; Wt 66.2 kg
[~2025-08-14 10:19] MED LIST changes: -BISA10SU11 RC; -GLUC1KIT SQ; +LINA5TAB PO; -LITH300T3 PO; -MAGN400O6 PO; +METF-442 PO; +OXCA300T4 PO
[2025-08-14 10:30] VITALS: BP 140/68; TEMP 97.7; O2SAT 99
[2025-08-14] MEDS ORDERED: HYDROCODONE/APAP 5/325MG TABLET PO PRN (11:00)
[2025-08-14] MEDS ORDERED: MAG HYDROX/AL HYDROX/SIMETH 30 ML UDC PO PRN (11:00)
[2025-08-14] MEDS ORDERED: Z GUARD REMEDY 4 OZ OINT TP PRN (11:00)
[2025-08-14] MEDS ORDERED: MAGNESIUM HYDROXIDE 30 ML UDC PO PRN (11:00)
[2025-08-14] MEDS ORDERED: ACETAMINOPHEN 325 MG TABLET PO PRN (11:00)
[2025-08-14] MEDS ORDERED: DEXTROSE 50%-WATER 50 ML DISP.SYRIN IV PRN (11:00)
[2025-08-14] MEDS: INSULIN REGULAR, HUMAN 100 UNIT/ML 3 ML VIAL SQ PRN (12:27)
[2025-08-14] MEDS: BLOOD SUGAR DIAGNOSTIC 1 EACH STRIP IN SCH (12:35)
[2025-08-14 13:25] LABS: CALCIUM, SERUM 8.6 mg/dL (8.5-10.1); CREATININE 0.8 mg/dL (0.6-1.3); SODIUM SERUM 131.0 mmol/L (136-145); UREA NITROGEN, BLOOD 22.0 mg/dL (7-18)
[2025-08-14 15:00] VITALS: BP 150/70; TEMP 98.1; O2SAT 100
[2025-08-14] MEDS: ENOXAPARIN SODIUM 40 MG/0.4 ML DISP.SYRIN SQ SCH (16:00)
[2025-08-14 19:00] VITALS: BP 146/80; TEMP 98.8; O2SAT 98
[2025-08-15 00:28] LABS: APPEARANCE,URINE CLEAR (CLEAR); BLOOD, URINE NEGATIVE Ery/uL (NEGATIVE); LEUKOCYTE ESTERASE ,URINE NEGATIVE (NEGATIVE); NITRITE, URINE NEGATIVE (NEGATIVE); UGLUCOSE 2+ mg/dL (NEGATIVE)
[2025-08-15 00:38] LABS: ADD URINE CULTURE YES; SQUAMOUS EPITHELIAL CELL,UR 0-2 /HPF (None Seen)
[2025-08-15 07:00] VITALS: BP 133/114; TEMP 98.6; O2SAT 96
[2025-08-15 07:17] LABS: PLATELET COUNT (AUTO) 347 K/uL (150-450); RED BLOOD CELL COUNT(AUTO) 3.54 MIL/uL (4.0-5.2); RED CELL DISTRIBUTION WIDTH 13.0 % (11.5-15.0); WHITE BLOOD COUNT (AUTO) 11.0 K/uL (4.3-11.0)
[2025-08-15] MEDS: PANTOPRAZOLE 40 MG TABLET.DR PO SCH (07:30)
[2025-08-15 07:32] LABS: INR 1.03 (0.91-1.10)
[2025-08-15 07:42] LABS: CALCIUM, SERUM 9.1 mg/dL (8.5-10.1); CREATININE 0.7 mg/dL (0.6-1.3); PHOSPHORUS 2.3 mg/dL (2.5-4.9); SODIUM SERUM 136.0 mmol/L (136-145); UREA NITROGEN, BLOOD 14.0 mg/dL (7-18)
[2025-08-15] MEDS ORDERED: ANESTHESIA TRAY IN PYXIS 1 EA TRAY MC ONE (08:28)
[2025-08-15] MEDS ORDERED: BUPIVACAINE 0.25% 75 MG/30 ML VIAL ONE (08:29)
[2025-08-15] MEDS ORDERED: TRANEXAMIC ACID 1,000 MG/10 ML VIAL ONE (08:29)
[2025-08-15] MEDS ORDERED: MIDAZOLAM HCL 2 MG/2ML VIAL ONE (09:49)
[2025-08-15] MEDS ORDERED: FENTANYL PF 100MCG/2ML AMPUL ONE (09:49)
[2025-08-15] MEDS ORDERED: HYDROMORPHONE INJ 2 MG/ML DISP.SYRIN ONE (09:49)
[2025-08-15] MEDS ORDERED: SUGAMMADEX SODIUM 200 MG/2 ML VIAL IV ONE (09:49)
[2025-08-15] MEDS ORDERED: ROCURONIUM BROMIDE 50 MG/5 ML ONE (09:50)
[2025-08-15] MEDS ORDERED: VANCOMYCIN 1 GM VIAL ONE (09:51)
[2025-08-15 12:35] VITALS: BP 157/64; TEMP 98.2; O2SAT 95
[2025-08-15 12:50] VITALS: BP 143/73; TEMP 97.5; O2SAT 91
[2025-08-15] MEDS: Magnesium 1GM/D5W 100ML PREMIX 100 ML IV SCH (12:56)
[2025-08-15 13:05] VITALS: BP 141/64; TEMP 97.6; O2SAT 97
[2025-08-15 13:20] VITALS: BP 127/65; TEMP 97.9; O2SAT 98
[2025-08-15] MEDS ORDERED: NIFE30TA91 PO (13:47)
[2025-08-15] MEDS ORDERED: LISI20TA30 PO (13:47)
[2025-08-15] MEDS ORDERED: [UNRECOGNIZED DRUG - CODE] IM (13:47)
[2025-08-15] MEDS ORDERED: ASPI-1169 PO (13:47)
[2025-08-15] MEDS ORDERED: SAXA5TAB PO (13:47)
[2025-08-15] MEDS: ONDANSETRON HCL/PF 4 MG/2 ML VIAL IVP PRN (14:48)
[2025-08-15 16:00] VITALS: BP 141/74; TEMP 97.9; O2SAT 94
[2025-08-15] MEDS: K PHOS NEUTRAL 250 MG TABLET PO ONE (17:14)
[2025-08-15] MEDS: CEFAZOLIN 2 GM in IV D5W 100 ML IV SCH (17:14)
[2025-08-16] MEDS: HYDROCODONE/APAP 10/325MG TABLET PO PRN (01:38)
[2025-08-16 07:49] LABS: CALCIUM, SERUM 8.4 mg/dL (8.5-10.1); CREATININE 0.7 mg/dL (0.6-1.3); PHOSPHORUS 2.5 mg/dL (2.5-4.9); SODIUM SERUM 134.0 mmol/L (136-145); UREA NITROGEN, BLOOD 13.0 mg/dL (7-18)
[2025-08-16 08:00] VITALS: BP 146/62; TEMP 99.1; O2SAT 95
[2025-08-16] MEDS: ENOXAPARIN SODIUM 40 MG/0.4 ML DISP.SYRIN SQ SCH (09:19)
[2025-08-16 16:00] VITALS: BP 133/62; TEMP 98.6; O2SAT 99
[2025-08-16 20:00] VITALS: BP 139/78; TEMP 97.5; O2SAT 98
[2025-08-17 07:51] LABS: PLATELET COUNT (AUTO) 308 K/uL (150-450); RED BLOOD CELL COUNT(AUTO) 2.69 MIL/uL (4.0-5.2); RED CELL DISTRIBUTION WIDTH 12.8 % (11.5-15.0); WHITE BLOOD COUNT (AUTO) 9.8 K/uL (4.3-11.0)
[2025-08-17 08:20] LABS: ASPARTATE AMINOTRANSFERASE 23.0 U/L (15-37); CALCIUM, SERUM 8.1 mg/dL (8.5-10.1); CREATININE 0.5 mg/dL (0.6-1.3); PHOSPHORUS 2.0 mg/dL (2.5-4.9); SODIUM SERUM 132.0 mmol/L (136-145); TOTAL PROTEIN, SERUM 6.4 g/dL (6.4-8.2); UREA NITROGEN, BLOOD 12.0 mg/dL (7-18)
[2025-08-17 08:44] VITALS: BP 152/105; TEMP 98.1; O2SAT 100
[2025-08-17] MEDS: MAGNESIUM OXIDE 400 MG TABLET PO ONE (11:24)
[2025-08-17] MEDS: K PHOS NEUTRAL 250 MG TABLET PO ONE (16:25)
[2025-08-17 16:32] VITALS: BP 124/88; TEMP 98.2; O2SAT 100
== END 2025-08-17 19:00 | DRG 481 ==
LOC: MED 10:19
PROC: 0QS706Z Reposition Left Upper Femur with Intramedullary Internal Fixation Device, Open Approach (ICD-10-PCS; principal; 2025-08-15 09:00)
DX: S72.142A Displaced intertrochanteric fracture of left femur, initial encounter for closed fracture (principal); E22.2 Syndrome of inappropriate secretion of antidiuretic hormone; G21.19 Other drug induced secondary parkinsonism; E11.42 Type 2 diabetes mellitus with diabetic polyneuropathy; E78.5 Hyperlipidemia, unspecified; J44.9 Chronic obstructive pulmonary disease, unspecified; Z88.0 Allergy status to penicillin; Z85.038 Personal history of other malignant neoplasm of large intestine; Z90.710 Acquired absence of both cervix and uterus; I10 Essential (primary) hypertension; F25.9 Schizoaffective disorder, unspecified; W18.30XA Fall on same level, unspecified, initial encounter; Y93.9 Activity, unspecified; Y92.129 Unspecified place in nursing home as the place of occurrence of the external cause; Y99.9 Unspecified external cause status; Z79.4 Long term (current) use of insulin; F17.210 Nicotine dependence, cigarettes, uncomplicated; Z90.49 Acquired absence of other specified parts of digestive tract; T42.1X5A Adverse effect of iminostilbenes, initial encounter; E86.1 Hypovolemia
CPT/HCPCS: 36415; 72192-TC; 73502; 73552; 80048-TC; 80053-TC; 81001; 82962-TC; 83735-TC; 84100-TC; 84443-TC; 85025-TC; 85027-TC; 85610-TC; 85652-TC; 85730-TC; 86850-TC; 87081-TC; 87086-TC; 93307-TC; 97110-TC; 97116-TC; 97530-TC; A4223; A6254; G0378; J0690; J1171; J1650; J1815; J1885; J2250; J2405; J2704; J2765; J3010; J3373; J3475; J3490; J7030; J7060